=== PATIENT | female | born 1985 | race Caucasian/White ===

== ENCOUNTER → 2022-07-21 14:43 | Outpatient (BNVA) | payer MEDICARE, MEDICAID, SELFPAY | PROVIDERS: PCP Internal Medicine; Referring Provider Internal Medicine; Visit Provider Internal Medicine Cardiovascular Disease | DX: I49.8 Other specified cardiac arrhythmias (principal); Z86.79 Personal history of other diseases of the circulatory system | CPT/HCPCS: 93005; 99202 ==

== ENCOUNTER → 2022-07-22 09:39 | Outpatient (BNVA) | payer MEDICARE, MEDICAID, SELFPAY | PROVIDERS: PCP Internal Medicine; Referring Provider Internal Medicine; Visit Provider Internal Medicine Gastroenterology | DX: K52.9 Noninfective gastroenteritis and colitis, unspecified (principal) | CPT/HCPCS: 99202 ==

== ENCOUNTER → 2022-07-27 13:14 | Outpatient (BNVA) | payer MEDICARE, MEDICAID, SELFPAY | PROVIDERS: PCP Internal Medicine; Visit Provider Internal Medicine Pulmonary Disease | DX: J45.909 Unspecified asthma, uncomplicated (principal) | CPT/HCPCS: 99202 ==

== ENCOUNTER 2022-08-02 14:53 | Outpatient (REF) | payer MEDICARE, MEDICAID, SELFPAY ==
[2022-08-10 18:17] LABS: Lactoferrin, Fecal, Quant. <6.25 mcg/mL (<7.25)
== END 2022-08-02 14:54 | disposition home or self-care (01) ==
LOC: HO.LNP 14:53
PROVIDERS: Visit Provider Internal Medicine Gastroenterology
DX: K52.9 Noninfective gastroenteritis and colitis, unspecified (principal)
CPT/HCPCS: 83631

== ENCOUNTER → 2022-08-17 13:55 | Outpatient (REF) | payer MEDICARE, MEDICAID, SELFPAY ==
--- NOTE | 2022-08-17 13:58 | CA_ITS ---
Transthoracic Echocardiogram Patient (Last, First, Middle): Roshni Lorenzo M Gender: Female Date of : 1985 Age: 37 Procedure Date: 08/17/2022 Procedure Type: Transthoracic Echocardiogram Location: OP Height: 162.56 cm Weight: 57.61 kg BSA: 1.61 m2 Heart Rate: 79 bpm BP: 110 / 70 mmHg Remanufacturing Technician: SULLY Referring MD: Kristopher Geronimo MD Symptoms: I49.8 - Other specified cardiac arrhythmias Study Quality: Technically Difficult ECG Rhythm: Sinus Conclusions: - The left ventricular systolic function is normal. The visually estimated ejection fraction is between 60-65%. - No obvious valvular pathology seen on this study. - (technically limited study with off axis images). Findings Left Ventricle Normal left ventricular cavity size. There is normal left ventricular wall thickness. The left ventricular systolic function is normal. The visually estimated ejection fraction is between 60-65%. Regional wall motion abnormalities can not be excluded due to suboptimal endocardial definition. Diastolic function is normal for age. Right Ventricle Normal right ventricular cavity size and systolic function. Atria Both atria are normal in size. Interatrial shunt cannot be excluded. Aortic Valve The aortic valve was not well visualized. There is mild calcification of the aortic valve. There is no aortic valve stenosis. There is no aortic valve regurgitation. Mitral Valve The mitral valve appears normal. There is no mitral valve regurgitation. There is no mitral valve stenosis. Pulmonic Valve The pulmonic valve is likely normal. Tricuspid Valve Normal tricuspid valve structure. There is no tricuspid valve regurgitation. Tricuspid regurgitation envelope is inadequate for calculation of right ventricular systolic pressure. Great Vessels The aorta was not well visualized. Venous The inferior vena cava is normal in size and collapses greater than 50% with inspiration. Pericardium/Pleural There is no evidence of pericardial effusion. Prior Study Comparison No prior study available for comparison. Recommendations, Care & Conclusions No obvious valvular pathology seen on this study. Measurements 2D Linear Measurements IVSd: 0.55 0.6-0.9/0.6-1.0 cm LVIDd: 4.44 3.9-5.3/4.2-5.9 cm LVIDd Index: 2.76 2.4-3.2/2.2-3.1 cm/m2 LVIDs: 3.94 2.0-3.6 cm LVPWd: 0.59 0.7-1.1 cm LA Diam: 2.30 2.7-3.8/3.0-4.0 cm LAIDs Index: 1.43 1.5-2.3 cm/m2 LV Mass: 89.56 67-162/88-224 g LV Mass Index: 55.63 43-95/49-115 g/m2 LVOT Diam: 1.80 3.0+(-)1.3 cm Mitral Valve MV Pk E: 0.78 MV PK A: 0.48 MV Decel Time: 246.00 E/A: 1.60 E'Lateral: 9.79 E'Medial: 9.46 E/E' Med: 8.20 E/E' Lat: 7.90 PHT: 72.00 MVA PHT: 3.06 Decel Bryan: 3.15 Aortic Valve AoV Pk Carmine: 0.93 AoV Mn Carmine: 0.68 AoV VTI: 0.16 AoV Pk Grad: 3.00 Aov Mn Grad: 2.00 JEMAL Cont.VTI: 2.02 LVOT LVOT Pk Carmine: 0.78 LVOT Mn Carmine: 0.53 LVOT VTI: 0.13 LVOT Pk Grad: 2.00 LVOT Mn Grad: 1.00 LVOT Diam: 1.80 LVOT Area: 2.54 Diastolic Function MV Pk E: 0.78 MV Pk A: 0.48 E/A: 1.60 E'Medial: 9.46 E/E' Med: 8.20 E' Laterial: 9.79 E/E' Lat: 7.90 Right Ventricle TAPSE (mm): 18.10 TVS' Carmine: 10.30 Tricuspid Valve RA Press: 3.00 Great Vessels Aorta Sinus of Valsalva: 2.70 2.0-3.5 cm Ao Asc: 2.40 2.1-3.4 cm Pulmonary Valve PV Pk Acrmine: 0.81 Peak PV Grad: 3.00 Updated in Other Vendor System with Status of Final Bob Aly MD electronically signed on 08/19/2022 11:07:00 AM with status of Final
== END ==
LOC: HO.CARD 13:55
PROVIDERS: PCP Internal Medicine; Visit Provider Internal Medicine Cardiovascular Disease
DX: I49.8 Other specified cardiac arrhythmias (principal)
CPT/HCPCS: 93306

== ENCOUNTER → 2022-09-06 15:01 | Outpatient (REF) | payer MEDICARE, MEDICAID, SELFPAY ==
--- NOTE | 2022-09-06 15:04 | HM_ITS ---
Conclusion: 1. Patient was monitored for total period of 2 days and 23 hours 2. Baseline was normal sinus rhythm with average heart of 84 beats per minute 3. No significant pauses or bradycardia noted 4. Very rare PACs noted 5. Patient reported 4 events all of which correlated with sinus rhythm MTDD
== END ==
LOC: HO.CARD 15:01
PROVIDERS: PCP Internal Medicine; Visit Provider Internal Medicine Cardiovascular Disease
DX: I49.8 Other specified cardiac arrhythmias (principal)
CPT/HCPCS: 93242

== ENCOUNTER → 2022-10-11 11:05 | Outpatient (BNVA) | payer MEDICARE, MEDICAID, SELFPAY | PROVIDERS: PCP Internal Medicine; Visit Provider Internal Medicine Pulmonary Disease | DX: J45.909 Unspecified asthma, uncomplicated (principal); F17.210 Nicotine dependence, cigarettes, uncomplicated; Z79.899 Other long term (current) drug therapy | CPT/HCPCS: 99212 ==

== ENCOUNTER → 2023-01-31 12:59 | Outpatient (BNVA) | payer MEDICARE, MEDICAID, SELFPAY | PROVIDERS: PCP Internal Medicine; Visit Provider Internal Medicine Pulmonary Disease | DX: J45.909 Unspecified asthma, uncomplicated (principal) | CPT/HCPCS: 99212 ==

== ENCOUNTER 2023-05-15 13:51 | Outpatient (AMB) | payer OTHER, SELFPAY ==
[2023-05-15 13:55] VITALS: BP 102/52; PULSE 85; O2SAT 98; BMI 20.9
--- NOTE | 2023-05-15 13:55 | MHC.PC.OV ---
Vital Signs 05/15/23 13:55 Height 5 ft 4 in Weight 122 lb BMI 20.9 BP 102/52 L Blood Pressure Location Lt brachial Position Sitting Pulse 85 Pulse Source Pulse Oximeter Pulse Oximetry (%) 98 Oxygen Delivery Method Room Air Intake Visit Reasons: smoker, POTSesophageal stricture Allergies egg Allergy (Severe, Verified 05/15/23 13:55) Hives insect venom Allergy (Severe, Verified 05/15/23 13:55) Rash Iodinated Contrast Media Allergy (Severe, Verified 05/15/23 13:55) Hives melon Allergy (Severe, Verified 05/15/23 13:55) Hives orange Allergy (Severe, Verified 05/15/23 13:55) Hives pear Allergy (Severe, Verified 05/15/23 13:55) Hives immune globulin,alpha (IgA) greater than 50 mcg/mL [From Octagam] Allergy (Intermediate, Verified 05/15/23 13:55) Anaphylaxis immune globulin,gamma (IgG) human [From Octagam] Allergy (Intermediate, Verified 05/15/23 13:55) Anaphylaxis maltose [From Octagam] Allergy (Intermediate, Verified 05/15/23 13:55) Anaphylaxis adhesive tape Allergy (Mild, Verified 05/15/23 13:55) Rash Inhaled Anesthetics (Halogen Based) Allergy (Mild, Verified 05/15/23 13:55) 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 Tobacco use date assessed: 05/15/23 Dental Screening Dental Screen Date: 05/15/23 Did you have a dental visit in the last 12 months?: Yes Did you have a dental problem in the last 6 months where you did not have access to dental care?: No Was dental information given to patient?: Patient has dentist HPI smoker, POTSesophageal stricture HPI Details 38-year-old female smoker with history of asthma and esophageal stricture coming in for follow-up. Blood work was requested. Review of the notes march 21, 2023 had right middle finger laceration (slammed door) healing. Patient also has followed up with the pulmonary placed on Dupixent. on Breo and albuterol. EGD not done yet and knows to reschedule. 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 seeing dermatology [place]. 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 Occipital neuralgia Pelvic floor dysfunction Pericardial effusion Peripheral neuropathy Positive YARITZA antibody POTS (postural orthostatic tachycardia syndrome) Raynauds disease 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 Brother Afib Paternal Grandfather Colon cancer Maternal Aunt Liver cancer Social History Housing: Apartment Alcohol intake: never Patient Tobacco Use Status: Current everyday Tobacco user Tobacco use type: Cigarette Cigarette Packs Per Day: 0.5 Cigarettes Per Day: 5 e-Cigarette/Vaping Use: Never Used Second Hand Smoke Exposure: Yes service: No Current occupational status: disabled Cognitive needs: No Hearing needs: No Vision needs: Yes Questionnaire PHQ-9 Over the last 2 weeks, how often have you been bothered by any of the following problems? 1. Little interest or pleasure in doing things: not at all 2. Feeling down, depressed, or hopeless: not at all 3. Trouble falling or staying asleep, or sleeping too much: not at all 4. Feeling tired or having little energy: not at all 5. Poor appetite or overeating: not at all 6. Feeling bad about yourself - or that you are a failure or have let yourself or your family down: not at all 7. Trouble concentrating on things, such as reading the newspaper or watching television: not at all 8. Moving or speaking so slowly that other people could have noticed. Or the opposite - being so fidgety or restless that you have been moving around a lot more than usual: not at all 9. Thoughts that you would be better off or of hurting yourself in some way: not at all Total score: 0 Depression Screening Interpretation: Negative Source: Developed by Drs. Raad Johnson, Jerry Uriarte and colleagues, with an educational maryse from [employer] Thrive Questionnaire Date Thrive assessed: 11/15/22 AUDIT C Alcohol Use Questionnaire (AUDIT-C) 1. How often do you have a drink containing alcohol?: Never Total Score: 0 Score Reviewed/Action Taken: No YARITZA-7 AMB Questionnaire YARITZA-7 Date YARITZA - 7 assessed: 11/15/22 Source: Developed by Drs. Raad Johnson, Jerry Uriarte and colleagues, with an educational maryse from [employer] Physical exam (Primary Care) Vital Signs: Last Vital Signs Pulse 85 05/15/23 13:55 BP 102/52 L 05/15/23 13:55 Pulse Ox 98 05/15/23 13:55 Oxygen Delivery Method Room Air 05/15/23 13:55 BMI result Body Mass Index 20.9 Tobacco/Smoking Status: Tobacco use Status Tobacco use date assessed 05/15/23 05/15/23 14:01 Patient Tobacco Use Status Current everyday Tobacco 05/15/23 14:01 Tobacco use type Cigarette 05/15/23 14:01 e-Cigarette/Vaping Use Never Used 05/15/23 14:01 PHQ-9: PHQ-9 Score PHQ-9: Total score 0 05/15/23 14:01 Depression Screening Interpretation: Negative Thrive Assessment: Date of Thrive Assessment Date Thrive assessed 11/15/22 05/15/23 14:01 Const General: alert; No acute distress Eyes Conjunctivae: conjunctivae normal Resp Auscultation: clear to auscultation bilaterally Cardio Rate: regular rate Rhythm: regular rhythm GI Inspection: Yes normal to inspection Extrem General: Yes normal to inspection and No edema Assessment and Plan Assessment & Plan (1) Tobacco abuse: Code(s): Z72.0 - Tobacco use Plan: Patient has been strongly advised to stop smoking (2) Asthma: Code(s): J45.909 - Unspecified asthma, uncomplicated Plan: Patient is being followed up by Pulmonary as well as breaker mechanic. 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: Code(s): G25.82 - Stiff-man syndrome; R76.0 - Raised antibody titer (5) Migraine: Code(s): G43.909 - Migraine, unspecified, not intractable, without status migrainosus Orders: Referrals Neurology Referral G43.909 - Migraine, unspecified, not intractable, without status migrainosus Rheumatology Referral L93.0 - Discoid lupus erythematosus Coding Level of Care Code Est Pt Level 4 (38515) Diagnoses Tobacco abuse Z72.0 Asthma J45.909 History of esophageal stricture Z87.19 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
== END 2023-05-15 14:25 | disposition home or self-care (01) ==
LOC: HO.HMGH 13:51
PROVIDERS: PCP Internal Medicine; Visit Provider Internal Medicine
DX: J45.909 Unspecified asthma, uncomplicated (principal); Z87.19 Personal history of other diseases of the digestive system; G43.909 Migraine, unspecified, not intractable, without status migrainosus; Z72.0 Tobacco use; G25.82 Stiff-man syndrome; R76.0 Raised antibody titer
CPT/HCPCS: 99214

== ENCOUNTER 2023-07-20 12:54 | Outpatient (AMB) | payer OTHER, SELFPAY ==
--- NOTE | 2023-07-20 12:56 | MHC.OFFVIS ---
Intake Vital Signs 07/20/23 12:57 Height 5 ft 4 in Weight 123 lb 7.342 oz BMI 21.2 BP 102/62 Blood Pressure Location Lt brachial Position Sitting Pulse 92 Pulse Source Doppler Pulse Oximetry (%) 100 Oxygen Delivery Method Room Air Intake Visit Reasons: Asthma Allergies egg Allergy (Severe, Verified 07/20/23 12:59) Hives insect venom Allergy (Severe, Verified 07/20/23 12:59) Rash Iodinated Contrast Media Allergy (Severe, Verified 07/20/23 12:59) Hives melon Allergy (Severe, Verified 07/20/23 12:59) Hives orange Allergy (Severe, Verified 07/20/23 12:59) Hives pear Allergy (Severe, Verified 07/20/23 12:59) Hives immune globulin,alpha (IgA) greater than 50 mcg/mL [From Octagam] Allergy (Intermediate, Verified 07/20/23 12:59) Anaphylaxis immune globulin,gamma (IgG) human [From Octagam] Allergy (Intermediate, Verified 07/20/23 12:59) Anaphylaxis maltose [From Octagam] Allergy (Intermediate, Verified 07/20/23 12:59) Anaphylaxis adhesive tape Allergy (Mild, Verified 07/20/23 12:59) Rash Inhaled Anesthetics (Halogen Based) Allergy (Mild, Verified 07/20/23 12:59) 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 HPI Asthma HPI Details 37-year-old lady, recent about 15 pack-year smoker, with underlying history of Alexandro-Danlos syndrome, also asthma within allergic component, followed by an community reinvestment act officer and now on antigen injections/Dupixent, now followed for asthma with good baseline control on current regimen of Breo 200 and albuterol MDI. She denies any recent exacerbations. 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 Brother Afib Paternal Grandfather Colon cancer Maternal Aunt Liver cancer Social History Housing: Apartment Alcohol intake: never Patient Tobacco Use Status: Current everyday Tobacco user Tobacco use type: Cigarette Cigarette Packs Per Day: 0.5 Cigarettes Per Day: 5 e-Cigarette/Vaping Use: Never Used Second Hand Smoke Exposure: Yes service: No Current occupational status: disabled Cognitive needs: No Hearing needs: No Vision needs: Yes Review of Systems Const Denies daytime sleepiness, Denies excessive sweating, Denies fatigue, Denies fever(s), Denies lethargy, Denies malaise, Denies night sweats, Denies snoring and Denies weight loss Eyes Denies blurry vision and Denies itchy eyes ENT Denies nasal congestion, Denies post nasal drip, Denies sinus pain, Denies sinus pressure and Denies other ( Thrush) Card Denies chest pain, Denies pedal edema, Denies dyspnea, Denies orthopnea and Denies paroxysmal nocturnal dyspnea Resp Denies cough, Denies hemoptysis, Denies excessive phlegm production, Denies dyspnea, Denies snoring and Denies wheezing GI Denies abdominal pain and Denies heartburn Musc Denies myalgias, Denies arthralgias and Denies joint swelling Skin/Breast Denies rash Neuro Denies memory loss and Denies seizure-like activity Psych Denies abnormal sleep pattern, Denies anxiety and Denies memory loss Endo Denies excessive sweating, Denies fatigue and Denies heat intolerance Zachery/Lymph Denies easy bruising Aller/Immun Denies itchy eyes, Denies seasonal rhinorrhea and Denies wheezing Physical Exam Vital Signs: Last Vital Signs Pulse 92 07/20/23 12:57 BP 102/62 07/20/23 12:57 Pulse Ox 100 07/20/23 12:57 Oxygen Delivery Method Room Air 07/20/23 12:57 BMI result Body Mass Index 21.2 Const General: no acute distress and alert Nutritional Appearance: not obese Orientation/consciousness: Other orientation findings ( oriented) HEENT Head: Yes atraumatic Eyes General: appearance normal, both eyes and all related structures Sclerae: sclerae normal EOM: EOMs intact bilaterally Neck Neck: Yes supple Lymphatic: no lymphadenopathy noted Resp Effort & Inspection: normal respiratory effort and no use of accessory muscles Auscultation: clear to auscultation bilaterally Cardio Rate: regular rate Rhythm: regular rhythm Heart sounds: no gallops, no murmurs and no rubs Skin General skin exam: other ( warm) Extrem General: No clubbing, No cyanosis and No edema Assessment & Plan Assessment & Plan (1) Asthma: Code(s): J45.909 - Unspecified asthma, uncomplicated Plan: Well controlled on current regimen of Breo and albuterol MDI. Continue current regimen. Patient continues on Dupixent/Singulair from her community reinvestment act officer. Coding Level of Care Code Est Pt Level 3 (51752) Diagnoses Asthma J45.909
[2023-07-20 12:57] VITALS: BP 102/62; PULSE 92; O2SAT 100; BMI 21.2
== END 2023-07-20 13:09 | disposition home or self-care (01) ==
PROVIDERS: PCP Internal Medicine; Visit Provider Internal Medicine Pulmonary Disease
DX: J45.909 Unspecified asthma, uncomplicated (principal)
CPT/HCPCS: 99213

== ENCOUNTER → 2023-07-20 12:54 | Outpatient (BNVA) | payer OTHER, SELFPAY | PROVIDERS: PCP Internal Medicine; Visit Provider Internal Medicine Pulmonary Disease | DX: J45.909 Unspecified asthma, uncomplicated (principal); Z79.899 Other long term (current) drug therapy | CPT/HCPCS: 99212 ==

== ENCOUNTER 2023-08-03 13:34 | Outpatient (AMB) | payer OTHER, SELFPAY ==
[2023-08-03 13:35] VITALS: BP 110/67; PULSE 76; BMI 20.8
--- NOTE | 2023-08-03 13:35 | MHC.OFFVIS ---
Intake Vital Signs 08/03/23 13:35 08/03/23 13:47 08/03/23 13:47 Height 5 ft 4 in Weight 121 lb 4.068 oz BMI 20.8 BP 110/67 110/76 119/83 Blood Pressure Location Lt brachial Lt brachial Lt brachial Position Supine Sitting Standing Pulse 76 87 92 Intake Visit Reasons: 1 year follow up Intake Note: 1 year follow-up with ekg feeling good American Sign Language Teacher Required: No Allergies egg Allergy (Severe, Verified 07/20/23 12:59) Hives insect venom Allergy (Severe, Verified 07/20/23 12:59) Rash Iodinated Contrast Media Allergy (Severe, Verified 07/20/23 12:59) Hives melon Allergy (Severe, Verified 07/20/23 12:59) Hives orange Allergy (Severe, Verified 07/20/23 12:59) Hives pear Allergy (Severe, Verified 07/20/23 12:59) Hives immune globulin,alpha (IgA) greater than 50 mcg/mL [From Octagam] Allergy (Intermediate, Verified 07/20/23 12:59) Anaphylaxis immune globulin,gamma (IgG) human [From Octagam] Allergy (Intermediate, Verified 07/20/23 12:59) Anaphylaxis maltose [From Octagam] Allergy (Intermediate, Verified 07/20/23 12:59) Anaphylaxis adhesive tape Allergy (Mild, Verified 07/20/23 12:59) Rash Inhaled Anesthetics (Halogen Based) Allergy (Mild, Verified 07/20/23 12:59) 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 Medication List - Last Reconciled 08/03/23 by Kristopher Geronimo MD albuterol sulfate 5 mg inhalation Q4H PRN albuterol sulfate 90 mcg/actuation (ProAir HFA) 2 puffs inhalation Q4-6H PRN azelastine 2 sprays intranasal BID 90 days baclofen 10 mg PO TID cholecalciferol (vitamin D3) 50 mcg PO DAILY cromolyn 100 mg PO QID dextroamphetamine-amphetamine 10 mg 1 tab PO DAILY dextroamphetamine-amphetamine 25 mg ER 1 cap PO QAM diphenhydramine HCl (Benadryl) 50 mg (2 x 25 mg) PO ONCE dupilumab (Dupixent) mg subcut epinephrine 0.3 mg IM Q10M PRN erenumab-aooe (Aimovig Autoinjector) mg subcut famotidine 20 mg PO BID fexofenadine 180 mg PO QID PRN fludrocortisone 0.1 mg PO DAILY 90 days fluocinonide 0.05% 1 appl topical BID fluticasone furoate-vilanterol 200-25 mcg/dose (Breo Ellipta) 1 ea PO DAILY gabapentin 300 mg PO TID 90 days immune globul G-gly-IgA avg 46 20 gram/200 mL (10 %) (Gamunex-C) NEUROLOGY Dr. Jones immune globul G-gly-IgA avg 46 5 gram/50 mL (10 %) (Gamunex-C) mL subcut metoprolol succinate ER Take 2 tablets of 25 mg in the morning and 1 tablet in the evening orally daily; 90 days montelukast 10 mg PO BEDTIME 90 days onabotulinumtoxinA (Botox) 2,000 units intradetrusor 4XW ondansetron 4 mg PO Q8H 90 days Oxygen Home Use As directed pentoxifylline ER 400 mg PO TID sodium chloride 0.65% (Saline Nasal Mist) 2 sprays intranasal QID PRN sumatriptan succinate 50 mg PO Q2-4H PRN triamcinolone acetonide 0.1% 1 appl topical BID HPI HPI Comments History of Present Illness Details Roshni comes for follow-up. She says she is feeling the best she has in many years. She has very infrequent palpitations and or near syncopal or syncopal events. She says she notices a blood pressure usually low around the time of IVIG infusion. Otherwise blood pressure is well controlled. She pushes fluids as well as salt intake. She also exercises regularly and has no cardiac symptoms. 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 Brother Afib Paternal Grandfather Colon cancer Maternal Aunt Liver cancer Social History Housing: Apartment Alcohol intake: never Patient Tobacco Use Status: Current everyday Tobacco user Tobacco use type: Cigarette Cigarette Packs Per Day: 0.5 Cigarettes Per Day: 5 e-Cigarette/Vaping Use: Never Used Second Hand Smoke Exposure: Yes service: No Current occupational status: disabled Cognitive needs: No Hearing needs: No Vision needs: Yes Review of Systems Const Denies chills, Denies fatigue, Denies fever(s), Denies frequent falls, Denies weakness, Denies weight gain and Denies weight loss ENT Denies dizziness Card Denies chest pain, Denies leg edema, Denies lightheadedness, Denies palpitations, Denies dyspnea, Denies dyspnea on exertion, Denies orthopnea and Denies other (loss of consciousness) Resp Denies cough, Denies dyspnea and Denies dyspnea on exertion GI Denies hematochezia and Denies change in stool character Musc Denies abnormal gait, Denies muscle weakness, Denies numbness, Denies radiating pain into limb and Denies tingling Neuro Denies Abnormal speech present, Denies abnormal gait, Denies dizziness, Denies frequent falls, Denies numbness, Denies tingling and Denies weakness Endo Denies fatigue and Denies palpitations Physical Exam Vital Signs: Last Vital Signs Pulse 92 08/03/23 13:47 BP 119/83 08/03/23 13:47 BMI result Body Mass Index 20.8 Const General: cooperative, comfortable, no acute distress, alert, awake and Physically active Nutritional Appearance: thin Orientation/consciousness: patient oriented x3 Limitations: no limitations HEENT Head: Yes normocephalic and Yes atraumatic Neck Neck: Yes trachea midline, Yes supple and Yes no JVD Resp Effort & Inspection: normal respiratory effort Auscultation: clear to auscultation bilaterally Cardio Jugular venous distension: no JVD Palpation: normal PMI Rate: regular rate Rhythm: regular rhythm Heart sounds: S1 normal heart sound present, S2 normal heart sound present, no click, no gallops, no murmurs and no rubs GI Auscultation: normal bowel sounds Skin General skin exam: no rashes or lesions noted Neuro General: patient oriented x3 and no focal motor deficits Speech: No Abnormal speech present Extrem General: Yes no clubbing, cyanosis or edema Office Procedures EKG Details: EKG shows normal sinus rhythm normal EKG at 77 beats per minute [id number], Complete Assessment & Plan Assessment & Plan (1) POTS (postural orthostatic tachycardia syndrome): Code(s): I49.8 - Other specified cardiac arrhythmias Plan: Patient with dysautonomia with POTS syndrome. Has done extremely well with increase fluid and salt intake as well as current fludrocortisone therapy. She notices low blood pressure consistently with IVIG infusion. I said she can take 0.2 mg of fludrocortisone during that times. Advised to continue maintain adequate fluid and salt intake. Continue maintain exercise as tolerated. Management of orthostatic hypertension was discussed in details. She understands it well. Follow up in clinic in 2 years time, sooner p.r.n.. Thank you for allowing me to partake in her care Coding Level of Care Code Est Pt Level 3 (33502) Diagnoses POTS (postural orthostatic tachycardia syndrome) I49.8 CPT Codes EKG - CPT: 34419-[id number], Complete ([id number])
[2023-08-03 13:47] VITALS: BP 110/76; BP 119/83; PULSE 87; PULSE 92
== END 2023-08-03 14:11 | disposition home or self-care (01) ==
PROVIDERS: PCP Internal Medicine; Visit Provider Internal Medicine Cardiovascular Disease
DX: I49.8 Other specified cardiac arrhythmias (principal)
CPT/HCPCS: 93010; 99213

== ENCOUNTER → 2023-08-03 13:34 | Outpatient (BNVA) | payer OTHER, SELFPAY | PROVIDERS: PCP Internal Medicine; Visit Provider Internal Medicine Cardiovascular Disease | DX: G90.A Postural orthostatic tachycardia syndrome [POTS] (principal); G90.1 Familial dysautonomia [Riley-Day] | CPT/HCPCS: 93005; 99212 ==

== ENCOUNTER 2023-08-16 13:06 | Outpatient (AMB) | payer OTHER, SELFPAY ==
[2023-08-16 13:13] VITALS: BP 112/64; PULSE 92; TEMP 36.6; BMI 20.7
--- NOTE | 2023-08-16 13:13 | MHC.OFFVIS ---
Intake Vital Signs 08/16/23 13:13 Height 5 ft 4 in Weight 120 lb 13.013 oz BMI 20.7 BP 112/64 Blood Pressure Location Rt brachial Position Sitting Pulse 92 Pulse Source Palpation Temp 97.9 F Temp Source Skin Intake Visit Reasons: Discoid lupus erythematosus Intake Note: New pt presents today for consult. Referred by PCP Dr Grover. Follows with Tamara guerrero. States she has a lot of autoimmune stuff going on. 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 Accompanied by: Self / Same As Patient Allergies egg Allergy (Severe, Verified 08/16/23 13:15) Hives insect venom Allergy (Severe, Verified 08/16/23 13:15) Rash Iodinated Contrast Media Allergy (Severe, Verified 08/16/23 13:15) Hives melon Allergy (Severe, Verified 08/16/23 13:15) Hives orange Allergy (Severe, Verified 08/16/23 13:15) Hives pear Allergy (Severe, Verified 08/16/23 13:15) Hives immune globulin,alpha (IgA) greater than 50 mcg/mL [From Octagam] Allergy (Intermediate, Verified 08/16/23 13:15) Anaphylaxis immune globulin,gamma (IgG) human [From Octagam] Allergy (Intermediate, Verified 08/16/23 13:15) Anaphylaxis maltose [From Octagam] Allergy (Intermediate, Verified 08/16/23 13:15) Anaphylaxis adhesive tape Allergy (Mild, Verified 08/16/23 13:15) Rash Inhaled Anesthetics (Halogen Based) Allergy (Mild, Verified 08/16/23 13:15) 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 Medication List - Last Reconciled 08/16/23 by Lisbeth Brar MD albuterol sulfate 5 mg inhalation Q4H PRN albuterol sulfate 90 mcg/actuation (ProAir HFA) 2 puffs inhalation Q4-6H PRN azelastine 2 sprays intranasal BID 90 days baclofen 10 mg PO TID cholecalciferol (vitamin D3) 50 mcg PO DAILY cromolyn 100 mg PO QID dextroamphetamine-amphetamine 10 mg 1 tab PO DAILY dextroamphetamine-amphetamine 20 mg 20 mg PO QAM diphenhydramine HCl (Benadryl) 50 mg (2 x 25 mg) PO ONCE dupilumab (Dupixent) mg subcut epinephrine 0.3 mg IM Q10M PRN erenumab-aooe (Aimovig Autoinjector) mg subcut famotidine 20 mg PO BID fexofenadine 180 mg PO QID PRN fludrocortisone 0.1 mg PO DAILY 90 days fluocinonide 0.05% 1 appl topical BID fluticasone furoate-vilanterol 200-25 mcg/dose (Breo Ellipta) 1 ea PO DAILY gabapentin 300 mg PO TID 90 days immune globul G-gly-IgA avg 46 20 gram/200 mL (10 %) (Gamunex-C) NEUROLOGY Dr. Jones immune globul G-gly-IgA avg 46 5 gram/50 mL (10 %) (Gamunex-C) mL subcut meloxicam 15 mg PO DAILY metoprolol succinate ER Take 2 tablets of 25 mg in the morning and 1 tablet in the evening orally daily; 90 days montelukast 10 mg PO BEDTIME 90 days onabotulinumtoxinA (Botox) 2,000 units intradetrusor 4XW ondansetron 4 mg PO Q8H 90 days Oxygen Home Use As directed pentoxifylline ER 400 mg PO TID sodium chloride 0.65% (Saline Nasal Mist) 2 sprays intranasal QID PRN sumatriptan succinate 50 mg PO Q2-4H PRN triamcinolone acetonide 0.1% 1 appl topical BID HPI HPI Comments History of Present Illness Details This is a 38-year-old female with pretty complex past medical history including 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 Back in April patient started developing rashes on her legs, back, hands, the rashes were itchy. She was evaluated by Allergy/immunology as well as Dermatology. She was started on allergy shots which were not very helpful, then started on the PICC sent which was quite helpful. She states that the rash is seems to have completely resolved. She stated that she has had history of Raynaud's for many years. Denies ever having digital tip ulcers. Mentions that her paternal aunt has sarcoidosis. 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 Brother Afib Paternal Grandfather Colon cancer Maternal Aunt Liver cancer Paternal Aunt Sarcoidosis Other Family history of autoimmune disorder Social History Housing: Apartment Alcohol intake: never Patient Tobacco Use Status: Current everyday Tobacco user Tobacco use type: Cigarette Cigarette Packs Per Day: 0.5 Cigarettes Per Day: 5 e-Cigarette/Vaping Use: Never Used Second Hand Smoke Exposure: Yes service: No Current occupational status: disabled Cognitive needs: No Hearing needs: No Vision needs: Yes Female Reproductive History Menstrual Total pregnancies: 0 Review of Systems Const Reports fatigue, Reports headache(s) and Reports weakness Eyes Reports dry eyes and Reports itchy eyes ENT Reports dysphagia, Reports dizziness, Reports dry mouth and Reports headache(s) GI Reports constipation, Reports dysphagia, Reports diarrhea and Reports nausea Musc Reports arthralgias and Reports stiffness Skin/Breast Reports erythema, Reports rash and Reports unusual bruising Neuro Reports dizziness, Reports headache(s) and Reports weakness Endo Reports fatigue Aller/Immun Reports itchy eyes Physical Exam Vital Signs: Last Vital Signs Temp 97.9 F 08/16/23 13:13 Pulse 92 08/16/23 13:13 BP 112/64 08/16/23 13:13 BMI result Body Mass Index 20.7 Const General: cooperative, healthy appearing and comfortable Nutritional Appearance: average body habitus Orientation/consciousness: patient oriented x3 Limitations: no limitations HEENT Head: Yes normocephalic and Yes atraumatic Mouth: moist mucous membranes Resp Effort & Inspection: normal respiratory effort and able to speak in complete sentences Auscultation: clear to auscultation bilaterally Cardio Rate: regular rate Rhythm: regular rhythm Heart sounds: S1 normal heart sound present GI Inspection: No distended Palpation (GI): Soft to palpation and nontender Skin Other: Livedo reticularis on both forearms Neuro General: patient oriented x3 Extrem Other: No active synovitis Normal nailfold capillaroscopy normal range of motion of both hands, wrists, elbows, shoulders, knees without pain Results Reviewed Results Reviewed: abs 04/2023 SSA 2.0 (<1.0) SSB -ve DOC screen by IFA negative? DNA/Arzola/AVIONICS SYSTEMS TECHNICIAN negative Labs 02/2023? CRP normal PFT 05/2022? Impression:? Normal spirometry, mildly reduced DLCO at 60% predicted Assessment & Plan Assessment & Plan (1) SS-A antibody positive: Code(s): R76.8 - Other specified abnormal immunological findings in serum Plan: This is a 38-year-old female with complex past medical history who presents for evaluation of mildly positive SSA, this was checked in the context of multiple itchy rashes. Rashes improved with Dupixent. I do not see any signs of connective tissue diseases such as SLE/Sjogren's/MCTD upon my evaluation today. Significance of her positive anti SSA is unclear. Discussed with patient signs and symptoms that should prompt her to come back to Rheumatology for re-evaluation. Follow-up as needed (2) Raynauds disease: Code(s): I73.00 - Raynaud's syndrome without gangrene Qualifiers: Raynaud?s-associated gangrene presence: without gangrene Qualified Code(s): I73.00 - Raynaud's syndrome without gangrene Plan: Per patient had symptoms for many years. Symptoms controlled with conservative measures. No history of digital tip ulcers. Patient has a negative DOC by IFA with normal nailfold capillaroscopy. Discussed conservative measures for Raynaud's. Plan I spent 46 minutes reviewing patient's chart, evaluating patient, counseling patient and documenting in the chart Coding Level of Care Code New Pt Level 4 (50178) Diagnoses SS-A antibody positive R76.8 Raynaud's disease without gangrene I73.00 Raynaud?s-associated gangrene presence: without gangrene
== END 2023-08-16 13:41 | disposition home or self-care (01) ==
PROVIDERS: PCP Internal Medicine; Visit Provider Student in an Organized Health Care Education/Training Program
DX: R76.8 Other specified abnormal immunological findings in serum (principal); I73.00 Raynaud's syndrome without gangrene
CPT/HCPCS: 99204

== ENCOUNTER → 2023-08-16 13:06 | Outpatient (BNVA) | payer MEDICARE, MEDICAID, SELFPAY | PROVIDERS: PCP Internal Medicine; Visit Provider Student in an Organized Health Care Education/Training Program ==

== ENCOUNTER 2024-02-23 08:53 | Outpatient (AMB) | payer OTHER, SELFPAY ==
--- NOTE | 2024-02-23 08:54 | A.OFFVIS_ITS ---
Intake Visit Reasons: f/u per Hai Intake Note: Roshni presents as a video call today. CC: No specific concerns at this time. Allergies egg Allergy (Severe, Verified 02/23/24 08:54) Hives insect venom Allergy (Severe, Verified 02/23/24 08:54) Rash Iodinated Contrast Media Allergy (Severe, Verified 02/23/24 08:54) Hives melon Allergy (Severe, Verified 02/23/24 08:54) Hives orange Allergy (Severe, Verified 02/23/24 08:54) Hives pear Allergy (Severe, Verified 02/23/24 08:54) Hives immune globulin,alpha (IgA) greater than 50 mcg/mL [From Octagam] Allergy (Intermediate, Verified 02/23/24 08:54) Anaphylaxis immune globulin,gamma (IgG) human [From Octagam] Allergy (Intermediate, Verified 02/23/24 08:54) Anaphylaxis maltose [From Octagam] Allergy (Intermediate, Verified 02/23/24 08:54) Anaphylaxis adhesive tape Allergy (Mild, Verified 02/23/24 08:54) Rash Inhaled Anesthetics (Halogen Based) Allergy (Mild, Verified 02/23/24 08:54) 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 HPI HPI f/u per Hai: Details: 37 yr old patient being seen for assessment for crohns RECAP: SHe wants to establish care for her IBD she was dx with crohns 2017 in [place] she was having rectal bleeding and mucous in stools she was put on IVIG for stiff person syndrome and felt it helped her crohns she had gastric emptying study 2016 in [place] and it was normal per her report she has post prandial pain after eating the pain is epigastric and feels like sharp pain, an morph to more dull pain constant bloating and discomfort she has constant nausea she has alternating diarrhea and constipation she had rifaximin on and off and it seems to help for a week or so she does have dysphagia she has had dilation in past which has helped she chokes few times a week, usually solids unaware if she has dx of EoE she has tried probiotics, culturelle etc but didn't feel that they helped she has been on steroids on and off for various reasons and it seems to help sleep is v variable she takes ibuprofen peridocially and with IVIG on trental for raynauds INTERIM: She has been focusing on managing her allergy shots and getting her dental issues sorted, redoing all her teeth she feesl her GI issues are not that active or bad stiff man syndrome has been good with IVIG q 4 weeks she had one minor episode of rectal bleeding and occ prandial pain she has on and off issues with swallowing still smoking but almost ready to stop, been weaning down EXAM: GENERAL: The patient is well developed and nontoxic. Relaxed, talking A/P: 1/ Multiple rare conditions, may have crohns contributing to the mix, she wants to wait on further w/u due to dental issues 2/ Esophgeal stricture hx with prior dilation ? dysmotility, ? 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 Brother Afib Paternal Grandfather Colon cancer Maternal Aunt Liver cancer Paternal Aunt Sarcoidosis Other Family history of autoimmune disorder Social History Housing: Apartment Alcohol intake: never Patient Tobacco Use Status: Current everyday Tobacco user Tobacco use type: Cigarette Cigarette Packs Per Day: 0.5 Cigarettes Per Day: 5 e-Cigarette/Vaping Use: Never Used Second Hand Smoke Exposure: Yes service: No Current occupational status: disabled Cognitive needs: No Hearing needs: No Vision needs: Yes Telehealth Telehealth Location of provider rendering services: practice address Location of patient: address on file Patient Identification confirmed using: Name, : Yes Telehealth method: video Patient verbally consented to treatment: Yes Patient verbally consented to billing insurance company: Yes Patient informed of any privacy concerns related to visit: Yes Minutes spent on Phone/Video with Pt.: 8 Assessment & Plan Assessment & Plan (1) IBD (inflammatory bowel disease): Code(s): K52.9 - Noninfective gastroenteritis and colitis, unspecified Category: Medical Plan: EXAM: GENERAL: The patient is well developed and nontoxic. Relaxed, talking A/P: 1/ Multiple rare conditions, may have crohns contributing to the mix, she wants to wait on further w/u due to dental issues 2/ Esophgeal stricture hx with prior dilation ? dysmotility, ? Eoe, vs gerd -- Plan: 1/ repeat EGD with bx for mast cells, EoE and dilation when she feels ready 2/ MR e--with pre med due to contrast allergy again when and if she feels ready 3/ possible colonoscopy at future date 5/ encouraged on efforts for smoking cessation, will help any possible crohns and general health
== END 2024-02-23 10:44 | disposition home or self-care (01) ==
LOC: HO.HGI 08:53
PROVIDERS: PCP Internal Medicine; Visit Provider Internal Medicine Gastroenterology
DX: K52.9 Noninfective gastroenteritis and colitis, unspecified (principal)
CPT/HCPCS: 99213

== ENCOUNTER → 2024-02-23 08:53 | Outpatient (BNVA) | payer OTHER, SELFPAY | PROVIDERS: PCP Internal Medicine; Visit Provider Internal Medicine Gastroenterology ==

== ENCOUNTER 2024-03-06 15:18 | Outpatient (AMB) | payer OTHER, SELFPAY ==
[2024-03-06 15:20] VITALS: BP 102/60; PULSE 76; O2SAT 100; BMI 19.6
--- NOTE | 2024-03-06 15:20 | A.OFFVIS_ITS ---
Vital Signs 03/06/24 15:20 Height 5 ft 4 in Weight 114 lb BMI 19.6 BP 102/60 Blood Pressure Location Rt brachial Position Sitting Pulse 76 Pulse Source Doppler Pulse Oximetry (%) 100 Oxygen Delivery Method Room Air Intake Visit Reasons: asthma Allergies egg Allergy (Severe, Verified 03/06/24 15:25) Hives insect venom Allergy (Severe, Verified 03/06/24 15:25) Rash Iodinated Contrast Media Allergy (Severe, Verified 03/06/24 15:25) Hives melon Allergy (Severe, Verified 03/06/24 15:25) Hives orange Allergy (Severe, Verified 03/06/24 15:25) Hives pear Allergy (Severe, Verified 03/06/24 15:25) Hives immune globulin,alpha (IgA) greater than 50 mcg/mL [From Octagam] Allergy (Intermediate, Verified 03/06/24 15:25) Anaphylaxis immune globulin,gamma (IgG) human [From Octagam] Allergy (Intermediate, Verified 03/06/24 15:25) Anaphylaxis maltose [From Octagam] Allergy (Intermediate, Verified 03/06/24 15:25) Anaphylaxis adhesive tape Allergy (Mild, Verified 03/06/24 15:25) Rash Inhaled Anesthetics (Halogen Based) Allergy (Mild, Verified 03/06/24 15:25) 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 HPI HPI asthma: Details: 39-year-old lady, recent about 15 pack-year smoker, with underlying history of Alexandro-Danlos syndrome, also asthma within allergic component, 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 She denies any recent exacerbations. 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 Brother Afib Paternal Grandfather Colon cancer Maternal Aunt Liver cancer Paternal Aunt Sarcoidosis Other Family history of autoimmune disorder Social History (Updated 03/06/24 @ 15:26 by Bere Munoz [facility]) Housing: Apartment Alcohol intake: never Patient Tobacco Use Status: Current everyday Tobacco user Tobacco use type: Cigarette Cigarette Packs Per Day: 0.5 Cigarettes Per Day: 2 e-Cigarette/Vaping Use: Never Used Second Hand Smoke Exposure: Yes service: No Current occupational status: disabled Cognitive needs: No Hearing needs: No Vision needs: Yes Review of Systems Const Denies daytime sleepiness, Denies excessive sweating, Denies fatigue, Denies fever(s), Denies lethargy, Denies malaise, Denies night sweats, Denies snoring and Denies weight loss Eyes Denies blurry vision and Denies itchy eyes ENT Denies nasal congestion, Denies post nasal drip, Denies sinus pain, Denies sinus pressure and Denies other ( Thrush) Card Denies chest pain, Denies pedal edema, Denies dyspnea, Denies orthopnea and Denies paroxysmal nocturnal dyspnea Resp Denies cough, Denies hemoptysis, Denies excessive phlegm production, Denies dyspnea, Denies snoring and Denies wheezing GI Denies abdominal pain and Denies heartburn Musc Denies myalgias, Denies arthralgias and Denies joint swelling Skin/Breast Denies rash Neuro Denies memory loss and Denies seizure-like activity Psych Denies abnormal sleep pattern, Denies anxiety and Denies memory loss Endo Denies excessive sweating, Denies fatigue and Denies heat intolerance Zachery/Lymph Denies easy bruising Aller/Immun Denies itchy eyes, Denies seasonal rhinorrhea and Denies wheezing Physical Exam Vital Signs: Last Vital Signs Pulse 76 03/06/24 15:20 BP 102/60 03/06/24 15:20 Pulse Ox 100 03/06/24 15:20 Oxygen Delivery Method Room Air 03/06/24 15:20 BMI result Body Mass Index 19.6 Const General: no acute distress and alert Nutritional Appearance: not obese Orientation/consciousness: Other orientation findings ( oriented) HEENT Head: Yes atraumatic Eyes General: appearance normal, both eyes and all related structures Sclerae: sclerae normal EOM: EOMs intact bilaterally Neck Neck: Yes supple Lymphatic: no lymphadenopathy noted Resp Effort & Inspection: normal respiratory effort and no use of accessory muscles Auscultation: clear to auscultation bilaterally Cardio Rate: regular rate Rhythm: regular rhythm Heart sounds: no gallops, no murmurs and no rubs Skin General skin exam: other ( warm) Extrem General: No clubbing, No cyanosis and No edema Assessment & Plan Assessment & Plan (1) Asthma: Code(s): J45.909 - Unspecified asthma, uncomplicated Category: Medical Plan: Well controlled on current regimen of Breo and albuterol MDI/nebs. Continue current regimen. (2) Nocturnal hypoxemia: Code(s): G47.34 - Idiopathic sleep related nonobstructive alveolar hypoventilation Category: Medical Plan: Patient insurance change to [facility], though she needs new supplemental oxygen provider. Overnight oxygen order placed with [employer]. Coding Level of Care Code Est Pt Level 4 (25210) Diagnoses Asthma J45.909 Nocturnal hypoxemia G47.34
== END 2024-03-06 15:34 | disposition home or self-care (01) ==
PROVIDERS: PCP Internal Medicine; Visit Provider Internal Medicine Pulmonary Disease
DX: J45.909 Unspecified asthma, uncomplicated (principal); G47.34 Idiopathic sleep related nonobstructive alveolar hypoventilation
CPT/HCPCS: 99214

== ENCOUNTER → 2024-03-06 15:18 | Outpatient (BNVA) | payer OTHER, SELFPAY | PROVIDERS: PCP Internal Medicine; Visit Provider Internal Medicine Pulmonary Disease | DX: J45.909 Unspecified asthma, uncomplicated (principal); G47.34 Idiopathic sleep related nonobstructive alveolar hypoventilation | CPT/HCPCS: 99212 ==

== ENCOUNTER 2024-06-28 10:15 | Outpatient (AMB) | payer OTHER, SELFPAY ==
[2024-06-28 10:20] VITALS: BP 110/78; PULSE 87; O2SAT 99; BMI 19.0
--- NOTE | 2024-06-28 10:20 | A.OFFPC_ITS ---
Vital Signs 06/28/24 10:20 Height 5 ft 4 in Weight 110 lb 8 oz BMI 19.0 BP 110/78 Blood Pressure Location Lt brachial Position Sitting Pulse 87 Pulse Source Pulse Oximeter Pulse Oximetry (%) 99 Oxygen Delivery Method Room Air Intake Visit Reasons: Physical Exam Physical Therapist Required: No Accompanied by: Self / Same As Patient Allergies egg Allergy (Severe, Verified 06/28/24 10:20) Hives insect venom Allergy (Severe, Verified 06/28/24 10:20) Rash Iodinated Contrast Media Allergy (Severe, Verified 06/28/24 10:20) Hives melon Allergy (Severe, Verified 06/28/24 10:20) Hives orange Allergy (Severe, Verified 06/28/24 10:20) Hives pear Allergy (Severe, Verified 06/28/24 10:20) Hives immune globulin,alpha (IgA) greater than 50 mcg/mL [From Octagam] Allergy (Intermediate, Verified 06/28/24 10:20) Anaphylaxis immune globulin,gamma (IgG) human [From Octagam] Allergy (Intermediate, Verified 06/28/24 10:20) Anaphylaxis maltose [From Octagam] Allergy (Intermediate, Verified 06/28/24 10:20) Anaphylaxis adhesive tape Allergy (Mild, Verified 06/28/24 10:20) Rash Inhaled Anesthetics (Halogen Based) Allergy (Mild, Verified 06/28/24 10:20) 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 Medication List - Last Reconciled 06/28/24 by Wesley Grover MD albuterol sulfate 5 mg inhalation Q4H PRN albuterol sulfate 90 mcg/actuation 2 puffs inhalation Q4-6H PRN azelastine 2 sprays intranasal BID 90 days baclofen 10 mg PO TID cholecalciferol (vitamin D3) 50 mcg PO DAILY cromolyn 100 mg PO QID dextroamphetamine-amphetamine 10 mg 1 tab PO DAILY dextroamphetamine-amphetamine 25 mg ER 1 cap PO QAM diphenhydramine HCl (Benadryl) 50 mg (2 x 25 mg) PO ONCE dupilumab (Dupixent) mg subcut epinephrine 0.3 mg IM Q10M PRN famotidine 20 mg PO BID fexofenadine 180 mg PO QID PRN fludrocortisone 0.1 mg PO DAILY 90 days fluocinonide 0.05% 1 appl topical BID fluticasone furoate-vilanterol 200-25 mcg/dose (Breo Ellipta) 1 ea PO DAILY gabapentin 300 mg PO TID 90 days immune globul G-gly-IgA avg 46 20 gram/200 mL (10 %) (Gamunex-C) NEUROLOGY Dr. Jones metoprolol succinate ER Take 2 tablets of 25 mg in the morning and 1 tablet in the evening orally daily; 90 days montelukast 10 mg PO BEDTIME 90 days ondansetron 4 mg PO Q8H 90 days Oxygen Home Use As directed pentoxifylline ER 400 mg PO TID sodium chloride 0.65% (Saline Nasal Mist) 2 sprays intranasal QID PRN sumatriptan succinate 50 mg PO Q2-4H PRN triamcinolone acetonide 0.5% topical DAILY Tobacco use date assessed: 06/28/24 Dental Screening Dental Screen Date: 06/28/24 Did you have a dental visit in the last 12 months?: Yes Did you have a dental problem in the last 6 months where you did not have access to dental care?: No Was dental information given to patient?: Patient has dentist HPI Physical Exam HPI Details 39-year-old female smoker with a history of asthma, history of esophageal stricture pots stiff person syndrome IBD migraine coming in for physical exam last seen in May 2023. Patient follows up with Pulmonary for the asthma on supplemental oxygen for the nocturnal hypoxemia. Patient has seen gastroenterology also advised repeat EGD biopsy . Patient has also seen Rheumatology in August last year does not see any signs of connective tissue disease Raynaud's. Cardiology notes appreciated also 07/26/2023 advised to increase oral fluids as well as on fludcortisonetherapy advise adequate fluid intake.. Patient has also seen Neurology for headaches which were treated before with Botox. has been hula hooping and so loosing weight but eating good. occ dizzy, R ear pressure, and having vertigo. 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 Brother Afib Paternal Grandfather Colon cancer Maternal Aunt Liver cancer Paternal Aunt Sarcoidosis Other Family history of autoimmune disorder Social History (Updated 06/28/24 @ 10:43 by Wesley Grover MD) Housing: Apartment Alcohol intake: never Patient Tobacco Use Status: Current everyday Tobacco user Tobacco use type: Cigarette Cigarette Packs Per Day: 0.5 Cigarettes Per Day: 2 Years Smoked: twice amonth e-Cigarette/Vaping Use: Never Used Second Hand Smoke Exposure: Yes service: No Current occupational status: disabled Cognitive needs: No Hearing needs: No Vision needs: Yes Questionnaire PHQ-9 Over the last 2 weeks, how often have you been bothered by any of the following problems? 1. Little interest or pleasure in doing things: not at all 2. Feeling down, depressed, or hopeless: not at all 3. Trouble falling or staying asleep, or sleeping too much: not at all 4. Feeling tired or having little energy: not at all 5. Poor appetite or overeating: not at all 6. Feeling bad about yourself - or that you are a failure or have let yourself or your family down: not at all 7. Trouble concentrating on things, such as reading the newspaper or watching television: not at all 8. Moving or speaking so slowly that other people could have noticed. Or the opposite - being so fidgety or restless that you have been moving around a lot more than usual: not at all 9. Thoughts that you would be better off or of hurting yourself in some way: not at all Total score: 0 Depression Screening Interpretation: Negative Depression Screening Done: Yes Source: Developed by Drs. Raad LClarissa Galvan Kurt Kroenke and colleagues, with an educational maryse from [employer]. Thrive Questionnaire Date Thrive assessed: 06/28/24 I am a: Patient What is your living situation today?: I have a steady place to live Within the past 12 months, did the food you bought not last and you didn't have the money to get more?: Never true Within the past 12 months, did you worry whether your food would run out before you got money to buy more?: Never true Do you have trouble paying for medicines?: No Do you have trouble getting transportation to medical appointments?: No Do you have trouble paying your heating and electricity bill?: No Do you have trouble taking care of your child, family member or friend?: No Do you have trouble with day-to-day activities such as bathing, preparing meals, shopping, managing finances, etc.?: No Are you currently unemployed and looking for a job?: No Are you interested in more education?: No Please select the resources that you would like help with: None Currently or been in a relationship where the following occur: No concerns r eported THRIVE Score: 0 AUDIT C Alcohol Use Questionnaire (AUDIT-C) 1. How often do you have a drink containing alcohol?: Never Total Score: 0 Score Reviewed/Action Taken: No YARITZA-7 AMB Questionnaire YARITZA-7 Date YARITZA - 7 assessed: 06/28/24 Feeling nervous, anxious, or on edge: 0 = Not at all Not being able to stop or control worryin = Not at all Worrying too much about different things: 0 = Not at all Trouble relaxin = Not at all Being so restless that it is hard to sit still: 0 = Not at all Becoming easily annoyed or irritable: 0 = Not at all Feeling afraid as if something awful might happen: 0 = Not at all Total YARITZA-7 score (0-4 normal; 5-9 mild; 10-14 moderate; 15-21 severe): 0 Source: Developed by Clarissa Stanton [employer]en[employer] and colleagues, with an educational maryse from [employer]. Review of Systems Const Denies poor appetite and Denies weakness Eyes Denies no additional complaints ENT Reports Normal hearing present, Denies dizziness, Denies nasal congestion, Denies tinnitus and Denies sore throat Card Denies chest pain, Denies syncope, Denies rapid heart rate and Denies dyspnea Resp Denies cough and Denies dyspnea GI Denies change in stool character, Reports constipation, Denies diarrhea, Denies nausea and Denies vomiting Denies urinary frequency, Denies difficulty voiding and Denies dysuria Neuro Reports Normal hearing present, Denies confusion, Denies dizziness, Denies syncope and Denies weakness Psych Denies confusion Physical exam (Primary Care) Vital Signs: Last Vital Signs Pulse 87 06/28/24 10:20 BP 110/78 06/28/24 10:20 Pulse Ox 99 06/28/24 10:20 Oxygen Delivery Method Room Air 06/28/24 10:20 BMI result Body Mass Index 19.0 Tobacco/Smoking Status: Tobacco use Status Tobacco use date assessed 06/28/24 06/28/24 10:25 Patient Tobacco Use Status Current everyday Tobacco 06/28/24 10:25 Tobacco use type Cigarette 06/28/24 10:25 e-Cigarette/Vaping Use Never Used 06/28/24 10:25 PHQ-9: PHQ-9 Score PHQ-9: Total score 0 06/28/24 10:25 Depression Screening Interpretation: Negative Thrive Assessment: Date of Thrive Assessment Date Thrive assessed 06/28/24 06/28/24 10:25 Currently or been in a relationship where the following occur: No concerns reported Const General: No confusion Orientation/consciousness: No confusion HENMT Head: Yes normocephalic Ears: external ears normal and TM's normal bilaterally Face and sinus: Yes normal facial exam Mouth: moist mucous membranes Throat: Yes tonsils normal Eyes Conjunctivae: conjunctivae normal Pupils: Equal, round and reactive pupils present and Pupil accommodation reflex normal Direct Ophthalmoscopy: normal light reflex Neck Neck: No lymphadenopathy Thyroid: Thyroid normal Chest Chest palpation & inspection: normal inspection of the chest Resp Effort & Inspection: normal respiratory effort and no audible wheezes Auscultation: clear to auscultation bilaterally, no crackles, no wheezes and lung sounds not diminished Cardio Rate: regular rate Rhythm: regular rhythm Peripheral pulses: radial pulses present and dorsalis pedis present GI Palpation (GI): no masses Auscultation: normal bowel sounds and normoactive bowel sounds Rectal Exam - Female: deferred Skin General skin exam: no rashes or lesions noted Rashes: no rashes Neuro General: No confusion Cranial nerves: Yes Equal, round and reactive pupils present and Yes Normal hearing present Cognition (Neuro): normal cognition Gait exam (Neuro): Normal gait present Motor exam (neuro): 5/5 motor strength present throughout Deep tendon reflexes (DTR's): Right brachioradialis reflex intensity grade: 2+, Left brachioradialis reflex intensity grade: 2+, Right patellar reflex intensity grade: 2+ and Left patellar reflex intensity grade: 2+ Extrem General: No edema Assessment and Plan Assessment & Plan (1) Annual physical exam: Code(s): Z00.00 - Encounter for general adult medical examination without abnormal findings Plan: Patient is advised to eat healthy, keep well hydrated, keep active and have adequate sleep. (2) Tobacco abuse: Code(s): Z72.0 - Tobacco use Plan: Patient is strongly advised to stop smoking! (3) Nocturnal hypoxemia: Code(s): G47.34 - Idiopathic sleep related nonobstructive alveolar hypoventilation Plan: Patient follows up with Pulmonary and is placed on oxygen (4) Asthma: Code(s): J45.909 - Unspecified asthma, uncomplicated Plan: Patient follows up with Pulmonary on albuterol inhaler Dupixent and Breo (5) POTS (postural orthostatic tachycardia syndrome): Code(s): I49.8 - Other specified cardiac arrhythmias Plan: Patient has been placed on fluid cortisone seen Cardiology (6) Migraine: Code(s): G43.909 - Migraine, unspecified, not intractable, without status migrainosus Plan: Patient is advised to eat healthy, keep well hydrated, keep active and have adequate sleep. (7) History of esophageal stricture: Comment: esophageal dilatation 02/2015 [facility] Mon Code(s): Z87.19 - Personal history of other diseases of the digestive system Plan: Continue to be followed by Gastroenterology (8) Breast cancer screening by mammogram: Code(s): Z12.31 - Encounter for screening mammogram for malignant neoplasm of breast Orders: Orders Complete Blood Count Auto Diff Today I49.8 - Other specified cardiac arrhythmias Thyroid Stimulating Hormone Today I49.8 - Other specified cardiac arrhythmias Lipid Panel Today E78.00 - Pure hypercholesterolemia, unspecified, I49.8 - Other specified cardiac arrhythmias Vitamin D 25-OH Total Today I49.8 - Other specified cardiac arrhythmias Hepatitis B,C Profile Today I49.8 - Other specified cardiac arrhythmias, R79.89 - Other specified abnormal findings of blood chemistry CT NG by PCR Today I49.8 - Other specified cardiac arrhythmias Erythrocyte Sedimentation Rate Today I49.8 - Other specified cardiac arrhythmias C Reactive Protein Today I49.8 - Other specified cardiac arrhythmias MM tomosynthesis screening BI Today Z12.31 - Encounter for screening mammogram for malignant neoplasm of breast Comprehensive Met. Panel Today I49.8 - Other specified cardiac arrhythmias Free T4 (Free Thyroxine) Today I49.8 - Other specified cardiac arrhythmias Vitamin B12 and Folate Today I49.8 - Other specified cardiac arrhythmias Syphilis Screen Today I49.8 - Other specified cardiac arrhythmias HIV Ab/Ag Today I49.8 - Other specified cardiac arrhythmias Coding Level of Care Code Est Pt Prev Care 40-64y(62480) Diagnoses Annual physical exam Z00.00 Tobacco abuse Z72.0 Nocturnal hypoxemia G47.34 Asthma J45.909 POTS (postural orthostatic tachycardia syndrome) I49.8 Migraine G43.909 History of esophageal stricture Z87.19 Breast cancer screening by mammogram Z12.31 Additional Codes PHQ-9 - 80215 - PHQ-9 Billing: ([id number])
== END 2024-06-28 10:58 | disposition home or self-care (01) ==
PROVIDERS: PCP Internal Medicine; Visit Provider Internal Medicine
DX: Z00.00 Encounter for general adult medical examination without abnormal findings (principal); Z72.0 Tobacco use; G47.34 Idiopathic sleep related nonobstructive alveolar hypoventilation; J45.909 Unspecified asthma, uncomplicated; I49.8 Other specified cardiac arrhythmias; G43.909 Migraine, unspecified, not intractable, without status migrainosus; Z87.19 Personal history of other diseases of the digestive system; Z12.31 Encounter for screening mammogram for malignant neoplasm of breast
CPT/HCPCS: 99396

== ENCOUNTER 2024-07-19 12:34 | Outpatient (REF) | payer OTHER, SELFPAY ==
--- NOTE | ~2024-07-19 | MM_ITS ---
EXAMINATION: MM SCREENING DIGITAL BREAST TOMOSYNTHESIS, BILATERAL CLINICAL INFORMATION: Screening. Asymptomatic. COMPARISON: Mammography: Comparison is made with available priors TECHNIQUE: Digital breast mammography with tomosynthesis is performed in both the craniocaudal and mediolateral oblique views along with computer-aided detection (CAD). FINDINGS: There are scattered areas of fibroglandular density (ACR BI-RADS breast composition Category b). There are no significant masses, abnormal calcifications, or other abnormalities. MM/MM tomosynthesis screening BI IMPRESSION: No mammographic evidence of malignancy. ASSESSMENT: BI-RADS BI-RADS 1 - Negative RECOMMENDATION: Routine annual mammography screening. 1 year F/U This examination should not preclude the clinical evaluation of a suspicious palpable abnormality. This patient's information was entered into a reminder system with a target due date for their next mammogram. Electronically signed by: Silvana Stewart DO 08/01/2024 08:17 PM EDT
[2024-07-19 13:02] LABS: MANUAL DIFF FLAG NO
[2024-07-19 13:53] LABS: Basophils Absolute Auto 0.1 X10*3/uL (0.0-0.2); Basophils Percent Auto 0.8 % (0-2); Eosinophils Absolute Auto 0.1 X10*3/uL (0.0-0.4); Hematocrit 41.2 % (37.0-47.0); Imm Gran Abs Auto 0.02 X10*3/uL (0.00-0.03); Imm Gran Pct Auto 0.3 % (0.0-0.4); Lymphocytes Absolute Auto 1.4 X10*3/uL (1.2-4.9); Mean Corpuscular Hemoglobin 31.8 pg (27.0-33.0); Mean Corpuscular Volume 93.6 fL (80.0-98.0); Mean Platelet Volume 9.3 fL (9.4-12.3); Monocytes Absolute Auto 0.5 X10*3/uL (0.1-1.2); Monocytes Percent Auto 8.7 % (2-11); Neutrophils Percent Auto 65.2 % (45-73); Platelet Count 373 X10*3/uL (160-400); Red Cell Distribution Width 13.1 % (11.0-16.0); White Blood Count 6.1 X10*3/uL (4.8-10.8)
[2024-07-19 14:31] LABS: Erythrocyte Sedimentation Rate 14 MM/HR (0-20)
[2024-07-19 14:47] LABS: Alanine Aminotransferase 11 U/L (0-31); Albumin Level 4.1 g/dL (3.5-5.0); Alkaline Phosphatase 59 U/L (39-117); Anion Gap 10 (12-20); Aspartate Amino Transferase 13 U/L (5-31); Bilirubin Total 0.3 mg/dL (0.0-1.0); Blood Urea Nitrogen 8 mg/dL (9-16); C Reactive Protein < 0.04 mg/dL (< or = 0.50); Calcium 9.1 mg/dL (8.4-10.2); Carbon Dioxide 27 mmol/L (22-29); Chloride 103 mmol/L (96-108); Cholesterol 168 mg/dL (<200); Estimated Glomerular Filt Rate > 60; Glucose Random 93 mg/dL (60-115); HDL Cholesterol 52 mg/dL (>40); LDL Cholesterol Calculated 101 mg/dL (<100); Potassium 4.1 mmol/L (3.3-5.1); Sodium 136 mmol/L (135-145); Total Protein 8.1 g/dL (6.5-8.0); Triglycerides 75 mg/dL (<150)
[2024-07-19 15:02] LABS: Free T4 (Free Thyroxine) 0.81 ng/dL (0.71-1.85); Thyroid Stimulating Hormone 1.57 uIU/mL (0.32-4.0); Vitamin D 25-OH Total 52.8 ng/mL (>30)
[2024-07-19 15:06] LABS: Folate 5.7 ng/mL (> or = 4.0); Vitamin B12 317 pg/mL (200-900)
[2024-07-22 08:44] LABS: HBS Num1 521.99 mIU/mL (0-7.99); HBc Num1 1.34 S/CO (0.00-0.79); HBsAGNum1 0.26 S/CO (0.00-0.99); HIV AB/AG Nonreactive (Nonreactive); HIV Num 1 0.05 S/CO (0.00-0.99); Hepatitis B Surface Antigen Negative (Negative); ~HepC Num1 0.24 S/CO (0.00-0.79); ~Hepatitis B Surface Antibody REACTIVE (Nonreactive); ~Hepatitis C Antibody Nonreactive (Nonreactive)
[2024-07-22 08:49] LABS: Syphilis Screen Reactive (Nonreactive)
[2024-07-22 09:30] LABS: HBc Num2 1.34 S/CO; HBc Num3 1.42 S/CO; Hepatitis B Core Antibody Reactive (Nonreactive)
[2024-07-27 11:59] LABS: RPR Quantitative Non-Reactive (Nonreactive)
[2024-07-27 12:00] LABS: T.Pallidum Particle Agg Test Non-Reactive (Nonreactive)
== END 2024-07-19 12:35 | disposition home or self-care (01) ==
LOC: HO.MAMMO 12:34
PROVIDERS: PCP Internal Medicine; Visit Provider Internal Medicine
DX: Z12.31 Encounter for screening mammogram for malignant neoplasm of breast (principal); I49.8 Other specified cardiac arrhythmias; E78.00 Pure hypercholesterolemia, unspecified; R79.89 Other specified abnormal findings of blood chemistry
CPT/HCPCS: 36415; 77063; 77067; 80053; 80061; 82306; 82607; 82746; 84439; 84443; 85025; 85652; 86140; 86592; 86704; 86706; 86780; 86803; 87340; 87389

== ENCOUNTER → 2024-07-19 12:45 | Outpatient (BNV) | payer OTHER, SELFPAY | PROVIDERS: PCP Internal Medicine; Visit Provider Internal Medicine | DX: Z12.31 Encounter for screening mammogram for malignant neoplasm of breast (principal) | CPT/HCPCS: 77063; 77067 ==

== ENCOUNTER 2024-11-11 15:01 | Outpatient (AMB) | payer OTHER, SELFPAY ==
[2024-11-11 15:05] VITALS: BP 100/60; PULSE 85; O2SAT 100
--- NOTE | 2024-11-11 15:05 | A.OFFVIS_ITS ---
Vital Signs 11/11/24 15:05 Weight 111 lb 5.335 oz BP 100/60 Blood Pressure Location Rt brachial Position Sitting Pulse 85 Pulse Source Pulse Oximeter Pulse Oximetry (%) 100 Oxygen Delivery Method Room Air Intake Visit Reasons: asthma Allergies egg Allergy (Severe, Verified 11/11/24 15:08) Hives insect venom Allergy (Severe, Verified 11/11/24 15:08) Rash Iodinated Contrast Media Allergy (Severe, Verified 11/11/24 15:08) Hives melon Allergy (Severe, Verified 11/11/24 15:08) Hives orange Allergy (Severe, Verified 11/11/24 15:08) Hives pear Allergy (Severe, Verified 11/11/24 15:08) Hives immune globulin,alpha (IgA) greater than 50 mcg/mL [From Octagam] Allergy (Intermediate, Verified 11/11/24 15:08) Anaphylaxis immune globulin,gamma (IgG) human [From Octagam] Allergy (Intermediate, Verified 11/11/24 15:08) Anaphylaxis maltose [From Octagam] Allergy (Intermediate, Verified 11/11/24 15:08) Anaphylaxis adhesive tape Allergy (Mild, Verified 11/11/24 15:08) Rash Inhaled Anesthetics (Halogen Based) Allergy (Mild, Verified 11/11/24 15:08) 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 Medication List - Last Reconciled 11/11/24 by Lena Yang LPN albuterol sulfate 5 mg inhalation Q4H PRN albuterol sulfate 90 mcg/actuation 2 puffs inhalation Q4-6H PRN azelastine 2 sprays intranasal BID 90 days baclofen 10 mg PO TID cholecalciferol (vitamin D3) 50 mcg PO DAILY cromolyn 100 mg PO QID dextroamphetamine-amphetamine 10 mg 1 tab PO DAILY dextroamphetamine-amphetamine 25 mg ER 1 cap PO QAM diphenhydramine HCl (Benadryl) 50 mg (2 x 25 mg) PO ONCE dupilumab (Dupixent) mg subcut epinephrine 0.3 mg IM Q10M PRN famotidine 20 mg PO BID fexofenadine 180 mg PO QID PRN fludrocortisone 0.1 mg PO DAILY 90 days fluocinonide 0.05% 1 appl topical BID fluticasone furoate-vilanterol 200-25 mcg/dose (Breo Ellipta) 1 ea PO DAILY gabapentin 300 mg PO TID 90 days immune globul G-gly-IgA avg 46 20 gram/200 mL (10 %) (Gamunex-C) NEUROLOGY Dr. 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 She denies any recent exacerbations. No significant changes since prior visit. 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 Brother Afib Paternal Grandfather Colon cancer Maternal Aunt Liver cancer Paternal Aunt Sarcoidosis Other Family history of autoimmune disorder Social History (Updated 06/28/24 @ 10:43 by Wesley Grover MD) Housing: Apartment Alcohol intake: never Patient Tobacco Use Status: Current everyday Tobacco user Tobacco use type: Cigarette Cigarette Packs Per Day: 0.5 Cigarettes Per Day: 2 Years Smoked: twice amonth e-Cigarette/Vaping Use: Never Used Second Hand Smoke Exposure: Yes service: No Current occupational status: disabled Cognitive needs: No Hearing needs: No Vision needs: Yes Review of Systems Const Denies daytime sleepiness, Denies excessive sweating, Denies fatigue, Denies fever(s), Denies lethargy, Denies malaise, Denies night sweats, Denies snoring and Denies weight loss Eyes Denies blurry vision and Denies itchy eyes ENT Denies nasal congestion, Denies post nasal drip, Denies sinus pain, Denies sinus pressure and Denies other ( Thrush) Card Denies chest pain, Denies pedal edema, Denies dyspnea, Denies orthopnea and Denies paroxysmal nocturnal dyspnea Resp Denies cough, Denies hemoptysis, Denies excessive phlegm production, Denies dyspnea, Denies snoring and Denies wheezing GI Denies abdominal pain and Denies heartburn Musc Denies myalgias, Denies arthralgias and Denies joint swelling Skin/Breast Denies rash Neuro Denies memory loss and Denies seizure-like activity Psych Denies abnormal sleep pattern, Denies anxiety and Denies memory loss Endo Denies excessive sweating, Denies fatigue and Denies heat intolerance Zachery/Lymph Denies easy bruising Aller/Immun Denies itchy eyes, Denies seasonal rhinorrhea and Denies wheezing Physical Exam Vital Signs: Last Vital Signs Pulse 85 11/11/24 15:05 BP 100/60 11/11/24 15:05 Pulse Ox 100 11/11/24 15:05 Oxygen Delivery Method Room Air 11/11/24 15:05 Const General: no acute distress and alert Nutritional Appearance: not obese Orientation/consciousness: Other orientation findings ( oriented) HEENT Head: Yes atraumatic Eyes General: appearance normal, both eyes and all related structures Sclerae: sclerae normal EOM: EOMs intact bilaterally Neck Neck: Yes supple Lymphatic: no lymphadenopathy noted Resp Effort & Inspection: normal respiratory effort and no use of accessory muscles Auscultation: clear to auscultation bilaterally Cardio Rate: regular rate Rhythm: regular rhythm Heart sounds: no gallops, no murmurs and no rubs Skin General skin exam: other ( warm) Extrem General: No clubbing, No cyanosis and No edema Assessment & Plan Assessment & Plan (1) Asthma: Code(s): J45.909 - Unspecified asthma, uncomplicated Category: Medical Plan: Well controlled on Breo and albuterol MDI. Continue current regimen. (2) Nocturnal hypoxemia: Code(s): G47.34 - Idiopathic sleep related nonobstructive alveolar hypoventilation Category: Medical Plan: Well controlled on nocturnal oxygen. Continue nocturnal supplemental oxygen. Coding Level of Care Code Est Pt Level 4 (60733) Diagnoses Asthma J45.909 Nocturnal hypoxemia G47.34
--- OUTSIDE RECORDS SUMMARY | 2024-11-11 17:03 | XMS_ITS ---
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 Name Role Phone Patricia Benson Unavailable [phone] ALLERGIES, ADVERSE REACTIONS, ALERTS Substance Code Code System Type Reaction Severity Status Start Date End Date iodine 5933 RxNorm Drug allergy () 0 Gamunex 523586 RxNorm Drug allergy () 0 epinephrine 3992 RxNorm Drug allergy () 0 Bees RxNorm Other substance allergy () 1 MEDICATIONS Medication Code Code System Start Date Stop Date Route Dosage Directions Fill Instructions Augmentin 398460 RxNorm 2021 oral 1 Breo Ellipta RxNorm 2021 baclofen RxNorm 2021 montelukast RxNorm 2021 cromolyn RxNorm 2021 azelastine RxNorm 2021 gabapentin RxNorm 2021 ondansetron RxNorm 2021 fluticasone propionate RxNorm 2021 pentoxifylline RxNorm 2021 metoprolol succinate RxNorm 2021 albuterol sulfate RxNorm 2021 famotidine RxNorm 2021 Adderall RxNorm 2021 Botox RxNorm 2021 Gamunex-C RxNorm 2021 Dupixent Syringe RxNorm 023 triamcinolone (bulk) RxNorm 023 fludrocortisone 0 RxNorm oral sumatriptan 0 RxNorm intranasal PROBLEMS Problem Name Code Code System Start Date End Date Stat Hypertension 75191170 [facility] 09/01/2022 Active Asthma 668631637 [facility] 09/01/2022 Active Allergic rhinitis 88275763 [facility] 09/01/2022 A ctive GERD 902801932 [facility] 09/01/2022 Active Contact with and (suspected) exposure to COVID-19 (Z20.822) [facility] 09/05/2022 Inactive Crushing injury of other finger, initial encounter 29644833 [facility] 03/21/2023 In active Malignant hyperthermia (finding) 751447819 [facility] Active Migraine, unspecified 66326060 [facility] Active Compression of vein 255622165 [facility] 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 Malignant mast cell neoplasm, unspecified 340739494 [facility] Active Unspecified sprain of left wrist, initial encounter 21293891426580328 [facility] 07/21/2023 Active Pain in left elbow 346820753 [facility] 07/21/2023 A ctive ENCOUNTERS Encounter Diagnosis Code Code System Date Stat us Unspecified sprain of left w rist, initial encounter 04910676068827412 [facility] 07/21/2023 Active Pain in left elbow 262526865 [facility] 07/21/2023 Active IMMUNIZATIONS * None VITAL SIGNS Code Code System Vitals Name Date Value and Un its 8462-4 [facility] Blood Pressure-Diastolic 07/21/2023 87 mmHg 8480-6 [facility] Blood Pressure-Systolic 07/21/2023 1 15 mmHg 8867-4 [facility] Heart Rate 07/21/2023 91 /min 9279-1 [facility] Respiratory Rate 07/21/2023 18 /min 8310-5 [facility] Body Temperature 07/21/2023 97.1 F 39954-3 [facility] Oxygen Saturation 07/21/2023 99 % SOCIAL HISTORY * None PROCEDURES Code Code System Procedure Date Status Notes L3908 Cpt4 Wrist Splint, Left 07/21/2023 completed MEDICAL EQUIPMENT * Patient has no history of implantable devices ASSESSMENT Assessment I do not see any clear signs of fracture on the x-rays.I suspect you have sprained the wrist.Some of the pain referring to the elbow with the clicking is likely result of muscle tightness after the fall, however, if this is not improving/resolving over the next 1 to 2 weeks please arrange follow-up with an orthopedist.Use the wrist splint for comfort over the next 1 to 2 weeks.Elevate the arm at rest.Ice for 20 minutes at a time, 3-4 times daily, for the next few days and then as needed.If symptoms or not improving please follow-up with orthopedics.[facility]Address: [address], [place], [place] [address]Di[facility]: [facility]Address: [address], [place], [place] [address]Rhxds: TREATMENT PLAN Type Description Date APPOINTMENT If not feeling jordy r in 3 day(s), please see your primary care physician. If you do not have a primary care physician, please return to this clinic. 07/21/2023 Lab Tests None GOALS * None HEALTH CONCERNS * No Health Concerns FUNCTIONAL AND COGNITIVE STATUS * None CONSULTATION NOTES * None DISCHARGE SUMMARY NOTES * None HISTORY AND PHYSICAL NOTES * Reason for visit - Injury IMAGING NOTES * /[place] History: Pain-Right Forearm: The patient presents with a chief complaint of pain of the right elbowand right forearm since Jul 20, 2023. It has the following qualities: aching and shooting. Context - Initial History: The patient reports it was the result of an injury that occurred on 07/20/2023. fall.LEFT - HAND AND WRIST OR MORE VIEWS Comparison: FINDINGS:Soft tissue swelling is appreciable. No acute fracture or subluxation is evident on provided views.There are no advanced degenerative changes are evident.No radiodense foreign bodies are identified. IMPRESSION:No acute osseous abnormality.LEFT - ELBOW 3 OR MORE VIEWS FINDINGS:Soft tissue swelling is appreciable. No joint effusion is e vident.No acute fracture or subluxation is evident on provided views.There are no advanced degenerative changes are evident.No radiodense foreign bodies are identified.IMPRESSION:No acute osseous abnormality. LABORATORY REPORT NARRATIVE NOTES * None PATHOLOGY REPORT NARRATIVE NOTES * None PROGRESS NOTES * None
--- OUTSIDE RECORDS SUMMARY | 2024-11-11 17:03 | XMS_ITS ---
Author Organization [employer] [place] [email or web address]. 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 Care Team Providers Care Aids Social Worker Name Role Phone Jarrett Huff MD Unavailable Po Wesley BROOKS Primary Care Provider Jassi Oseguera Unavailable Jarrett Huff MD Unavailable Angelito Ruelas MD Unavailable [phone] Po Wesley BROOKS Primary Care Provider Jarrett Huff MD Unavailable Po Wesley BROOKS Primary Care Provider Jassi Oseguera Unavailable Jarrett Huff MD Unavailable Po Wesley BROOKS Primary Care Provider Jassi Oseguera Unavailable Jarrett Huff MD Unavailable Po Wesley BROOKS Primary Care Provider Jassi Oseguera Unavailable Unavailable Unavailable Unavailable Unavailable Unavailable Unavailable Angelito Ruelas MD Unavailable Po Wesley BROOKS Primary Care Provider Allergies Allergy Classification Reported Allergen(s) Allergy Type Date of Onset Reaction(s) Care Provider Facility Unclassified (5 sources) Egg-Derived Products Propensity to adverse reactions 019 Ysabel Hamilton ID Work Phone: [facility] Work Phone: Comment on above: Apples and Oats Encounters Encounter Date Encounter Type Encounter Diagnosis Care Provider Facility Start: 07-25-2024 12:00-0400 Telephone encounter Jarrett Huff MD Work Phone: [facility] [place] Start: 07-17-2024 12:00-0400 Telephone encounter Jarrett Huff MD Work Phone: [facility] Comment on above: Jury Administration (Jarrett Huff MD) Start: 06-19-2024 13:00-0400 End: 06-19-2024 13:40-0400 Erroneous Encounter ERRONEOUS ENCOUNTER--DISREG DARREN Corie Woodard APRN Work Phone: [facility] Comment on above: ERRONEOUS ENCOUNTER--DISREGARD (Primary Dx) Start: 06-14-2024 12:00-0400 Refill Stiff-person syndrome Jarrett Huff MD Work Phone: 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 Start: 01-01-2024 12:00-0500 Orders Only Cobalamin deficiency Corielynn Woodard APRN Work Phone: [facility] Comment on above: B12 deficiency (Primary Dx) Start: 12-15-2023 12:00-0500 Telephone encounter External Provider Work Phone: 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 (Primary Dx); Migraine without aura and without status migrainosus, not intractable Start: 12-13-2023 12:00-0500 Orders Only Jarrett Huff MD Work Phone: [facility] [place] Start: 12-13-2023 12:00-0500 Refill Stiff-person syndrome Jarrett Huff MD Work Phone: [facility] [place] Comment on above: 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 2 ML dupilumab 150 MG/ML Prefilled Syringe (10 sources) Interleukin-4 Receptor alpha Antagonist Start: 12-12-2023 Dupixent 300 MG/2ML prefilled syringe Plan of Treatment Date Care Activity Detail Author Start: 01-23-2025 End: 01-23-2025 Patient encounter procedure 01/23/2025 11:30 AM EDT Office Visit [facility] [address] [phone] Jarrett Huff MD [address] [place] [address] [address] [place] [address] [facility] [place] Start: 06-19-2024 End: 06-19-2024 Patient encounter procedure 06/19/2024 1:00 PM EDT Office Visit [facility] [address] [phone] Corie Woodard APRN [address] [place] [address] [facility] [place] Start: 06-06-2024 Administration of influenza vaccine Influenza Vaccine [facility] Start: 07-07-2023 COVID-19 Vaccine ( season) COVID-19 Vaccine ( season) [facility] Start: 2002 Hepatitis B Vaccines (1 of 3 - 19+ 3-dose series) Hepatitis B Vaccines (1 of 3 - 19+ 3-dose series) [facility] Start: 1989 Pneumococcal Vaccine : Pediatric (0-5 Years) and At-Risk Patients (6 to 64 Years) (1 of 2 - PCV) Pneumococcal Vaccine: Pediatric (0-5 Years) and At-Risk Patients (6 to 64 Years) (1 of 2 - PCV) [facility] Complete Blood Count , with Differential Complete Blood Count, with Differential Lab Routine Migraine without aura and without status migrainosus, not intractable 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 Ordered: 12/15/2023 [facility] Comment on above: Ordered: 12/15/2023 Comprehensive metabo lic 2000 panel - Serum or Plasma Comprehensive Metabolic Panel Lab Routine Migraine without aura and without status migrainosus, not intractable 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 Ordered: 12/15/2023 [facility] Comment on above: Ordered: 12/15/2023 Creatine kinase [Enzymatic activity/volume] in Serum or Plasma Creatine Kinase (CK) Lab Routine Migraine without aura and without status migrainosus, not intractable 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 Ordered: 12/15/2023 [facility] Comment on above: Ordered: 12/15/2023 Homocysteine, Total, Serum Homocysteine, Total, Serum Lab Routine Migraine without aura and without status migrainosus, not intractable 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 Ordered: 12/15/2023 [facility] Comment on above: Ordered: 12/15/2023 Iron, TIBC, and Ferr itin Panel Iron, TIBC, and Ferritin Panel Lab Routine Migraine without aura and without status migrainosus, not intractable 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 Ordered: 12/15/2023 [facility] Comment on above: Ordered: 12/15/2023 Methylmalonic Acid, Serum Methylmalonic Acid, Serum Lab Routine Migraine without aura and without status migrainosus, not intractable 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 Ordered: 12/15/2023 [facility] Comment on above: Ordered: 12/15/2023 Prealbumin [Mass/vol ume] in Serum or Plasma Prealbumin Lab Routine Migraine without aura and without status migrainosus, not intractable 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 Ordered: 12/15/2023 [facility] Comment on above: Ordered: 12/15/2023 Vitamin B1, Whole Blood Vitamin B1, Whole Blood Lab Routine Migraine without aura and without status migrainosus, not intractable 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 Ordered: 12/15/2023 [facility] Comment on above: Ordered: 12/15/2023 Vitamin B12 and Folate Vitamin B 12 and Folate Lab Routine Migraine without aura and without status migrainosus, not intractable 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 Ordered: 12/15/2023 [facility] Work Phone: Comment on above: Ordered: 12/15/2023 Vitamin B2, Plasma Vitamin B2, P lasma Lab Routine Migraine without aura and without status migrainosus, not intractable 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 Ordered: 12/15/2023 [facility] Comment on above: Ordered: 12/15/2023 Vitamin B6 Vitamin B6 Lab R outine Migraine without aura and without status migrainosus, not intractable Stiff person syndrome with positive glutamic acid decarboxylase (YARTIZA) antibody Ordered: 12/15/2023 [facility] Comment on above: Ordered: 12/15/2023 Vitamin D, 25-Hydroxy Vitamin D, 25-Hydroxy Lab Routine Migraine without aura and without status migrainosus, not intractable 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 Ordered: 12/15/2023 [facility] Comment on above: Ordered: 12/15/2023 Problems Active Problems Problem Classification Problem Date Last Recorded Documented Date Chronic Condition Indicator Provider Unclassified (1 source) ERRONEOUS ENCOUNTER--DIS REGARD 06-19-2024 Corie Woodard APRN Work Phone: Past or Other Problems Problem Classification Problem Date Last Recorded Documented Date Chronic Condition Indicator Provider Nutritional deficiencies (1 source) Cobalamin deficiency; Translations: [Deficiency of other specified B group vitamins] 01-01-2024 Episodic Corie Woodard APRN Work Phone: Social History Date Type Detail Facility Start: 06-18-2024 Gender identity Identifies as female gender (finding) [facility] Start: 1985 Sex Assigned At Female [facility] Vital Signs Date Time Vital Sign Value Performing Clinician Faci lity 12-15-2023 11:39-0500 Body height 162.6 cm Corie Woodard APRN Work Phone: [facility] 12-15-2023 11:39-0500 Body mass index (BMI) [Ratio] 19.74 kg/m2 Corie Woodard APRN Work Phone: [facility] 12-15-2023 11:39-0500 Body weight 52.16 kg Corie Woodard APRN Work Phone: [facility] 12-15-2023 11:39-0500 BP (Blood pressure) 108/79mm[Hg] Corie Woodard APRN Work Phone: [facility] 12-15-2023 11:39-0500 Heart rate 94 /min Corie Woodard APRN Work Phone: [facility] 12-15-2023 11:39-0500 SaO2% (BldA) [Mass fraction] 97 % Corie Woodard APRN Work Phone: [facility] Clinical Notes 12-15-2023 to 07-26-2024 Telephone Encounter - Claudia Hamilton MA - 07/26/2024 10:18 AM EDTTelephone Encounter - Claudia Hamilton MA - 07/26/2024 10:18 AM Otto Woodard APRN - 06/19/2024 1:11 PM EDT Note Date & Type Note Facility 07-26-2024 Telephone encount er Note FYI- Awaiting re-testing to see about treatment and will plan the IVIG infusion accordingly and gave the fax number to be given the doctors that is testing and treating the Syphilis to send the office a copy of the lab reports for your review. [facility] 07-26-2024 Miscellaneous Notes Formattin g of this note might be different from the original. FYI- Awaiting re-testing to see about treatment and will plan the IVIG infusion accordingly and gave the fax number to be given the doctors that is testing and treating the Syphilis to send the office a copy of the lab reports for your review. Let her know that yes, she may hold on the IVIG for 6 weeks. Please also obtain a copy of that blood test result. Received a call from the infusion nurse. Patient had routine blood work done and tested positive for Syphilis. They read that IVIG can cause a false positive. They are going to contact the PCP to do a test to determine if the patient actually has Syphilis. In the meantime they want to know if the patient can stop the IVIG for 6 weeks until they get the test back? documented in this encounter [facility] 07-25-2024 Telephone encount er Note Let her know that yes, she may hold on the IVIG for 6 weeks. Please also obtain a copy of that blood test result. [facility] 07-25-2024 Telephone encount er Note Received a call from the infusion nurse. Patient had routine blood work done and tested positive for Syphilis. They read that IVIG can cause a false positive. They are going to contact the PCP to do a test to determine if the patient actually has Syphilis. In the meantime they want to know if the patient can stop the IVIG for 6 weeks until they get the test back? [facility] Work Phone: 07-18-2024 Telephone encount er Note Please obtain a copy of the letter for me to complete. [facility] 07-18-2024 Miscellaneous Notes Formattin g of this note might be different from the original. Please obtain a copy of the letter for me to complete. Patient called in today to inform that the patient is asking for a provider letter to be sent over to Office of Jury Commissioner for Jury Duty since the patient lives in [facility]. The patient is suppose to be sending over photos of the letter for more information. The deadline date is 08/15/2024. Here are the details: Office of [facility] Address: [address] [place] [address], [facility] documented in this encounter [facility] 07-17-2024 Telephone encount er Note Patient called in today to inform that the patient is asking for a provider letter to be sent over to Office of Jury Commissioner for Jury Duty since the patient lives in [facility]. The patient is suppose to be sending over photos of the letter for more information. The deadline date is 08/15/2024. Here are the details: [facility] Address: [address] [place] [address], [id number] [facility] 06-19-2024 Solar Energy Advisor Authentication Interface Message Text This encounter was created in error - please disregard. [facility] 06-19-2024 Solar Energy Advisor Authentication Interface Message Text This encounter was created in error - please disregard. [facility] 06-19-2024 History of Presen t illness Narrative This encounter was created in error - please disregard. documented in this encounter [facility] 06-19-2024 Reason for visit Narrative Reason Onset Date Comments Error 06/19/2024 [id number] Telephone encounter Note* Telephone Encounter - Claudia Hamilton MA - 02/15/2024 2:47 PM EDT FYI_ processed prior authorization on CMM for Gamunex-C 20 gm/200 ml #4 each for 28 days and this is now pending for review and is awaiting decision from the insurance company. HENNESSY: [id number] (pend) [id number] Miscellaneous Notes* Telephone Encounter - Claudia Hamilton MA - 02/15/2024 2:47 PM EDT FYI_ processed prior authorization on CMM for Gamunex-C 20 gm/200 ml #4 each for 28 days and this is now pending for review and is awaiting decision from the insurance company. HENNESSY: [id number] (pend) documented in [id number] History of Present illness Narrative* Corie Woodard APRN - 01/01/2024 8:35 AM EST ERROR documented in [id number] Telephone encounter Note* Telephone Encounter - Ankita Xochilt - 12/15/2023 1:32 PM EST MSOT - Requesting prior authorization for: Medication: ATOGEPANT 60 MG TAB (QULIPTA) Quantity: 30 Days Supply: 30 Diagnosis (ICD10): Migraine without aura and without status migrainosus, not intractable [G43.009] Can you please initiate benefits investigation. Thank you! Ankita Lemon Pharmacy Liaison [id number] Miscellaneous Notes* Telephone Encounter - Ankita Xochilt - 12/15/2023 1:32 PM EST MSOT - Requesting prior authorization for: Medication: ATOGEPANT 60 MG TAB (QULIPTA) Quantity: 30 Days Supply: 30 Diagnosis (ICD10): Migraine without aura and without status migrainosus, not intractable [G43.009] Can you please initiate benefits investigation. Thank you! Ankita Lemon Pharmacy Liaison documented in this encounterM[id number] Instructions* Patient Instructions* Croie Woodard APRN - 12/15/2023 12:17 PM EST -Stop AIMOVIG. -Start Quilipta 60mg once daily. -Obtain blood work at [facility]. You do not have to fast. -Return in 6 months for follow up. Call sooner if needed. documented in this [facility]02-09-2024 History of Present illness Narrative* Corie Woodard APRN - 12/15/2023 11:40 AM EST History of Present Illness Patient is a 38 y.o. 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 Per chart review of relevant history: hersymptoms started in ~2004, but experienced more progression in [id number]. 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 She was having daily episodes of muscle spasms throughout her body. Historical Medications: octagam - anaphylactic reaction Flexeril - not effective Since her last visit, oRshni Lorenzo reports she does not feel like AIMOVIG has been helping with her migraines. She has about 2-3 migraines per month. They have not been as severe as they were inthe past. She uses sumatriptan PRN, which works well. She does have constipation and increased muscle spasms around the time she uses AIMOVIG. She is tolerating IVIG well and feels it is working. Shealso spins fire, which she thinks has been helping her spasms and balance. No recent falls. Review of Systems 10 other systems reviewed and are negative unless otherwise noted on scanned ROS form completed by the patient. Past Medical History: Diagnosis Date ? Dysautonomia (HCC) ? Fall 09/27/2022 one fall no major injuries ? Falls a few falls since last visit ? Falls infrequently 02/05/2021 couple falls, no injuries ? Falls infrequently 04/30/2021 couple falls no injuries ? Falls infrequently 10/12/2021 few falls no major injuries ? Falls infrequently 01/04/2022 ? Falls infrequently 04/12/2022 few falls; one fall muscle spasms ? YARITZA (generalized anxiety disorder) ? Mast cell activation (HCC) ? May-Thurner syndrome ? Orthostatic headache ? Patient had no falls in past year 07/05/2022 ? Patient had no falls in past year 06/06/2023 ? Pelvic congestion syndrome ? Positive YARITZA antibody ? SMAS (superior mesenteric artery syndrome) (HCC) ? Stiff person syndrome Past Surgical History: Procedure Laterality Date ? ENDOMETRIAL ABLATION 03/10/2015 ? ESOPHAGEAL DILATION 02/23/2015 ? HYSTERECTOMY 10/13/2017 ? NASAL ENDOSCOPY 05/20/2016 ? VENOGRAM INJECTION 10/08/2015 RENAL VENOGRAM Family History Problem Relation Age of Onset ? Diabetes Mother ? Heart disease Mother ? Allergies Father ? Pacemaker Father ? Atrial fibrillation Brother ? Allergies Brother ? Dementia Paternal Grandmother Social History Socioeconomic History ? Marital status: Spouse name: Not on file ? Number of children: Not on file ? Years of education: Not on file ? Highest education level: Not on file Occupational History ? Not on file Tobacco Use ? Smoking status: Every Day Packs/day: .5 Types: Cigarettes ? Smokeless tobacco: Current ? Tobacco comments: quit on off Vaping Use ? Vaping Use: Never used Substance and Sexual Activity ? Alcohol use: Never ? Drug use: Never ? Sexual activity: Not on file Other Topics Concern ? Not on file Social History Narrative ? Not on file Social Determinants of Health Financial Resource Strain: Not on file Food Insecurity: Not on file Transportation Needs: Not on file Physical Activity: Not on file Stress: Not on file Social Connections: Not on file Housing Stability: Not on file ? albuterol (PROVENTIL HFA; VENTOLIN HFA) 108 (90 Base) MCG/ACT inhaler ? albuterol (PROVENTIL) (5 mg/mL) 0.5% nebulizer solution Take 1 mL (5 mg total) by nebulization 4 times daily (every 6 hours) as needed for wheezing. ? amphetamine-dextroamphetamine (ADDERALL XR) 25 MG 24 hr capsule Take 1 capsule (25 mg total) by mouth every morning. ? amphetamine-dextroamphetamine (ADDERALL) 10 MG tablet Take 1 tablet (10 mg total) by mouthdaily. ? Azelastine HCl 137 MCG/SPRAY nasal spray 2 sprays into each nostril 2 (two) times a day. ? baclofen (LIORESAL) 10 MG tablet TAKE 1 TABLET BY MOUTH THREE TIMES A DAY NEEDED FOR MUSCLE SPASM ? Breo Ellipta 200-25 MCG/ACT inhaler INHALE 1 PUFF BY MOUTH EVERY DAY ? cromolyn (GASTROCROM) 100 MG/5ML solution Take 5 mL (100 mg total) by mouth as needed. ? diphenhydrAMINE (BENADRYL) 25 mg capsule Take 1 capsule (25 mg total) by mouth 4 times daily (every 6 hours) as needed for itching. ? Dupixent 300 MG/2ML prefilled syringe ? EPINEPHrine 0.15 mg/0.3 mL IJ auto-injection Inject 0.3 mL (0.15 mg total) into the shoulder, thigh, or buttocks once as needed for allergic reaction. ? famotidine (PEPCID) 20 MG tablet Take 1 tablet (20 mg total) by mouth 2 (two) times a day. ? fexofenadine (JOSEPH) 180 MG tablet Take 1 tablet (180 mg total) by mouth 4 (four) times a day. Administer with water only; do not administer with fruit juices. ? fludrocortisone (FLORINEF) 0.05MG tablet Take 2 split tablet (0.1 mg total) by mouth daily. ? fluocinonide (LIDEX) 0.05 % cream APPLY TO AFFECTED AREAS TWICE DAILY FOR 2 WEEKS, BREAK FOR 1 WEEK, REPEAT NEEDED. ? gabapentin (NEURONTIN) 300 MG capsule Take 1 capsule (300 mg total) by mouth 3 (three) times a day. ? ibuprofen (MOTRIN) 200 MG tablet Take 1 tablet (200 mg total) by mouth 4 times daily (every 6 hours) as needed for mild pain. ? immune globulin, human, 10% in solution (GAMUNEX-C) IV Premix 200 mL (20 g total). ? metoPROLOL SUCCINATE (TOPROL-XL) 25 MG 24 hr tablet TAKE 2 TABLETS BY MOUTH EVERY DAY IN THE MORNING AND 1 TABLET EVERY EVENING ? montelukast (SINGULAIR) 10 MG tablet Take 1 tablet (10 mg total) by mouth nightly. ? ondansetron (ZOFRAN-ODT) 4 MG disintegrating tablet Take 1 tablet (4 mg total) by mouth 3 times daily (every 8 hours). ? Oxygen 2 L/min. Saturation Goal: % Equipment: Rate, Route: Humidification: Frequency: Duration of Need: ? pentoxifylline (TRENtal) 400 MG CR tablet Take 1 tablet (400 mg total) by mouth 3 (three) times a day with meals. ? SUMAtriptan (IMITREX) 50 MG tablet TAKE 1 TABLET BY MOUTH ONCE NEEDED FOR MIGRAINE, MAYREPEAT IN 2 HOURS IF UNRESOLVED, MAX 4/24HRS ? triamcinolone (KENALOG) 0.1 % cream APPLY TWICE DAILY TO RASH ON THE LEGS FOR 2 WEEKS BREAK ONE WEEK THEN REPEAT NEEDED. ? Vitamin D3 (CHOLECALICEROL) 2000 units tablet Take 1 tablet (2,000 Units total) by mouth daily. ? erenumab-aooe (AIMOVIG) 140 MG/ML Solution Auto-injector injection Inject 1 pen(s) (140 mgtotal) under the skin every 30 days (once a month). ? OnabotulinumtoxinA (BOTOX IJ) 300 Units every 12 (twelve) weeks. ? proMETHAZINE (PHENERGAN) 25 MG tablet Take 1 tablet (25 mg total) by mouth as needed for nausea or vomiting. Allergies Allergen Reactions ? Oranges Fever ? Eggs Or Egg-Derived Products Hives Apples and Oats ? Loie-Hznjcz-Orrd [Alimentum] Unknown/Patient and Family Unable to Define ? Epinephrine Hives Other reaction(s): Unknown Other reaction(s): Unknown ? Iodinated Contrast Media Hives Other reaction(s): Unknown ? No Known Allergies Unknown/Patient and Family Unable to Define ? Insect Extract Itching Physical Exam Vitals: 12/15/23 1139 BP: 108/79 BP Location: Left arm Patient Position: Sitting Cuff Size: Medium (Standard) Pulse: 94 SpO2: 97% Weight: 52.2 kg (115 lb) Height: 1.626 m (5' 4 ) General Exam General: no apparent distress, cooperative, well developed, well nourished. NECK: Supple, full range of motion EXT: no clubbing, cyanosis, or edema Neurological Exam Mental Status Alert and oriented to person, place, time, and situation Cranial Nerves III, IV, : EOMI, VII: facial strength symmetric and strong bilaterally; speech - no dysarthria VIII: hearing right - NL and left- NL XI: symmetric shoulder shrug Motor There is no pronator drift of out-stretched arms. Muscle bulk is normal. Strength is full bilaterally. Tone is normal. Sensory Light touch - normal Cerebellar Finger to nose - normal bilaterally. Gait Normal stance and stride Assessment: Roshni Lorenzo is a 38 y.o. female who returns today for follow up of Stiff Person Syndrome. SPSis stable, she will continue IVIG infusions and muscle relaxers. For migraines, she will stop AIMOVIG and start Qulipta. We will order annual blood work. Plan: - [facility] at home IVIG infusion over 4 days per month -Stop AIMOVIG and start Qulipta. - Continue baclofen 10mg 1 tab q day-TID PRN for spasms - Continue sumatriptan 50 mg prn - Continue exercising - Obtain blood work. - Return to office in 6 months for follow-up Patient seen by and plan discussed with and approved by Dr. Huff. I spent a total of 40 minutes on the day of the visit. 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 documented in this encounter [facility] note* Diagnosis B12 deficiency- Primary documented in this encounter [facility] note* Diagnosis ERRONEOUS ENCOUNTER--DISREGARD- Primary documented in this encounter [facility] note* Diagnosis 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 She has positive anti-YARITZA 65 antibodies at >250. She was having daily episodes of muscle spasms throughout her body. Historical Medications: octagam - anaphylactic reaction Flexeril - not effective Since her last visit, Roshni Lorenzo reports Review of Systems 10 other systems reviewed and are negative unless otherwise noted on scanned ROS form completed by the patient. 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 Orthostatic headache Patient had no falls in past year 07/05/2022 Patient had no falls in past year 06/06/2023 Pelvic congestion syndrome Positive YARITZA antibody SMAS (superior mesenteric artery syndrome) (HCC) Stiff person syndrome Past Surgical History: Procedure Laterality Date ENDOMETRIAL ABLATION 03/10/2015 ESOPHAGEAL DILATION 02/23/2015 HYSTERECTOMY 10/13/2017 NASAL ENDOSCOPY 05/20/2016 VENOGRAM INJECTION 10/08/2015 RENAL VENOGRAM Family History Problem Relation Age of Onset Diabetes Mother Heart disease Mother Allergies Father Pacemaker Father Atrial fibrillation Brother Allergies Brother Dementia Paternal Grandmother Social History Socioeconomic History Marital status: Spouse name: Not on file Number of children: Not on file Years of education: Not on file Highest education level: Not on file Occupational History Not on file Tobacco Use Smoking status: Every Day Packs/day: .5 Types: Cigarettes Smokeless tobacco: Current Tobacco comments: quit on off Vaping Use Vaping Use: Never used Substance and Sexual Activity Alcohol use: Never Drug use: Never Sexual activity: Not on file Other Topics Concern Not on file Social History Narrative Not on file Social Determinants of Health Financial Resource Strain: Not on file Food Insecurity: Not on file Transportation Needs: Not on file Physical Activity: Not on file Stress: Not on file Social Connections: Not on file Housing Stability: Not on file albuterol (PROVENTIL HFA; VENTOLIN HFA) 108 (90 Base) MCG/ACT inhaler albuterol (PROVENTIL) (5 mg/mL) 0.5% nebulizer solution Take 1 mL (5 mg total) by nebulization 4 times daily (every 6 hours) as needed for wheezing. amphetamine-dextroamphetamine (ADDERALL XR) 25 MG 24 hr capsule Take 1 capsule (25 mg total) by mouth every morning. amphetamine-dextroamphetamine (ADDERALL) 10 MG tablet Take 1 tablet (10 mg total) by mouth daily. atogepant (QULIPTA) 60 mg tablet Take 1 tablet (60 mg total) by mouth daily. Azelastine HCl 137 MCG/SPRAY nasal spray 2 sprays into each nostril 2 (two) times a day. baclofen (LIORESAL) 10 MG tablet TAKE 1 TABLET BY MOUTH THREE TIMES A DAY NEEDED FOR MUSCLE SPASM Breo Ellipta 200-25 MCG/ACT inhaler INHALE 1 PUFF BY MOUTH EVERY DAY cromolyn (GASTROCROM) 100 MG/5ML solution Take 5 mL (100 mg total) by mouth as needed. diphenhydrAMINE (BENADRYL) 25 mg capsule Take 1 capsule (25 mg total) by mouth 4 times daily (every 6 hours) as needed for itching. Dupixent 300 MG/2ML prefilled syringe EPINEPHrine 0.15 mg/0.3 mL IJ auto-injection Inject 0.3 mL (0.15 mg total) into the shoulder, thigh, or buttocks once as needed for allergic reaction. famotidine (PEPCID) 20 MG tablet Take 1 tablet (20 mg total) by mouth 2 (two) times a day. fexofenadine (JOSEHP) 180 MG tablet Take 1 tablet (180 mg total) by mouth 4 (four) times a day. Administer with water only; do not administer with fruit juices. fludrocortisone (FLORINEF) 0.05MG tablet Take 2 split tablet (0.1 mg total) by mouth daily. fluocinonide (LIDEX) 0.05 % cream APPLY TO AFFECTED AREAS TWICE DAILY FOR 2 WEEKS, BREAK FOR 1 WEEK, REPEAT NEEDED. gabapentin (NEURONTIN) 300 MG capsule Take 1 capsule (300 mg total) by mouth 3 (three) times a day. ibuprofen (MOTRIN) 200 MG tablet Take 1 tablet (200 mg total) by mouth 4 times daily (every 6 hours) as needed for mild pain. immune globulin, human, 10% in solution (GAMUNEX-C) IV Premix 200 mL (20 g total). metoPROLOL SUCCINATE (TOPROL-XL) 25 MG 24 hr tablet TAKE 2 TABLETS BY MOUTH EVERY DAY IN THE MORNING AND 1 TABLET EVERY EVENING montelukast (SINGULAIR) 10 MG tablet Take 1 tablet (10 mg total) by mouth nightly. OnabotulinumtoxinA (BOTOX IJ) 300 Units every 12 (twelve) weeks. ondansetron (ZOFRAN-ODT) 4 MG disintegrating tablet Take 1 tablet (4 mg total) by mouth 3 times daily (every 8 hours). Oxygen 2 L/min. Saturation Goal: % Equipment: Rate, Route: Humidification: Frequency: Duration of Need: pentoxifylline (TRENtal) 400 MG CR tablet Take 1 tablet (400 mg total) by mouth 3 (three) times a day with meals. proMETHAZINE (PHENERGAN) 25 MG tablet Take 1 tablet (25 mg total) by mouth as needed for nausea or vomiting. SUMAtriptan (IMITREX) 50 MG tablet TAKE 1 TABLET BY MOUTH ONCE NEEDED FOR MIGRAINE, MAY REPEAT IN 2 HOURS IF UNRESOLVED, MAX 4/24HRS triamcinolone (KENALOG) 0.1 % cream APPLY TWICE DAILY TO RASH ON THE LEGS FOR 2 WEEKS BREAK ONE WEEK THEN REPEAT NEEDED. Vitamin D3 (CHOLECALICEROL) 2000 units tablet Take 1 tablet (2,000 Units total) by mouth daily. Allergies Allergen Reactions Oranges Fever Egg-Derived Products Hives Apples and Oats [id number] [Alimentum] Unknown/Patient and Family Unable to Define Epinephrine Hives Other reaction(s): Unknown Other reaction(s): Unknown Iodinated Contrast Media Hives Other reaction(s): Unknown No Known Allergies Unknown/Patient and Family Unable to Define Insect Extract Itching Physical Exam There were no vitals filed for this visit. General Exam General: no apparent distress, cooperative, well developed, well nourished. NECK: Supple, full range of motion EXT: no clubbing, cyanosis, or edema Neurological Exam Mental Status Alert and oriented to person, place, time, and situation Cranial Nerves III, IV, : EOMI, VII: facial strength symmetric and strong bilaterally; speech - no dysarthria VIII: hearing right - NL and left- NL XI: symmetric shoulder shrug Motor There is no pronator drift of out-stretched arms. Muscle bulk is normal. Strength is full bilaterally. Tone is normal. Sensory Light touch - normal Cerebellar Finger to nose - normal bilaterally. Gait Normal stance and stride Assessment: Roshni Lorenzo is a 39 y.o. 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 For migraines, she will stop AIMOVIG and start Qulipta. We will order annual blood work. Plan: - [facility] at home IVIG infusion over 4 days per month - Continue baclofen 10mg 1 tab q day-TID PRN for spasms - Continue sumatriptan 50 mg prn - Continue exercising - Start vitamin B12 1000mcg/day. - Return to office in 6 months for follow-up Patient seen by and plan discussed with and approved by Dr. Huff. No LOS data to display During the day of the visit, time was spent including the following: Examining the patient Chart review in preparation for the visit Documenting in the patient record Reviewing Labs & Radiology Medication Reconciliation [facility] Additional Source Comments Care Teams (unrecognized sec tion and content) Aids Social Worker Relationship Specialty Start Date End Date Wesley Grover MD [address] [place] [address] [place] [id number] PCP - General Internal Medicine 07/23/21 Jarrett Huff MD [address] [place] [address] Physician Neurology 02/26/20 Jassi Oseguera [address] [place] [address] [id number] [place] [address] Physician Pulmonary Medicine 09/27/22 Corie Hester MD Psychiatrist 05/11/20 DO KIMBERLY Rooney: [facility] Consulting Provider Allergy 10/12/21 Aids Social Worker Relationship Specialty Start Date End Date Wesley Grover MD [address] [place] [address] [place] [address] PCP - General Internal Medicine 07/23/21 Jarrett Huff MD [address] [place] [address] Physician Neurology 02/26/20 Jassi Oseguera [id number] [place] [address] Physician Pulmonary Medicine 09/27/22 Corie Hester MD Psychiatrist 05/11/20 DO KIMBERLY Rooney: [facility] Provider Allergy 10/12/21 Aids Social Worker Relationship Specialty Start Date End Date Wesley Grover MD [address] [place] [address] [place] [address] PCP - General Internal Medicine 07/23/21 Jarrett Huff MD [address] [place] [address] Physician Neurology 02/26/20 Jassi Oseguera [address] [place], [place] [address]e [id number] [place] [address] Physician Pulmonary Medicine 09/27/22 Corie Hester MD Psychiatrist 05/11/20 DO KIMBERLY Rooney: [facility] Provider Allergy 10/12/21 Aids Social Worker Relationship Specialty Start Date End Date Wesley Grover MD [address] [place] [address] [place] [id number] PCP - General Internal Medicine 07/23/21 Jarrett Huff MD [address] [place] [address] Physician Neurology 02/26/20 Jassi Oseguera [address] [place] [address] [id number] [place] [address] Physician Pulmonary Medicine 09/27/22 Corie Hester MD Psychiatrist 05/11/20 DO KIMBERLY Rooney: [facility] Provider Allergy 10/12/21 Aids Social Worker Relationship Specialty Start Date End Date Wesley Grover MD [address] [place] [address] [place] [address] PCP - General Internal Medicine 07/23/21 Jarrett Huff MD [address] [place] [address] Physician Neurology 02/26/20 Jassi Oseguera [address] [place] [address] [id number] [place] [address] Physician Pulmonary Medicine 09/27/22 Corie Hester MD Psychiatrist 05/11/20 DO KIMBERLY Rooney: [facility] Provider Allergy 10/12/21 Aids Social Worker Relationship Specialty Start Date End Date Wesley Grover MD [address] [place] [address] Dr Patel [address] [place] [id number] PCP - General Internal Medicine 07/23/21 Jarrett Huff MD [address] [place] [address] Physician Neurology 02/26/20 Angelito Ruelas MD [address] [place] [id number] Consulting Provider Pulmonary Medicine 02/05/21 Corie Hester MD Psychiatrist 05/11/20 DO KIMBERLY Rooney: [facility] Consult[facility] Provider Allergy 10/12/21 Aids Social Worker Relationship Specialty Start Date End Date Wesley Grover MD [address] [place] [address] Dr Patel [facility] [address] [place] [id number] PCP - General Internal Medicine 07/23/21 Jarrett Huff MD [address] [place] [address] Physician Neurology 02/26/20 Angelito Ruelas MD [address] [place] [address] [id number] Consulting Provider Pulmonary Medicine 02/05/21 Corie Hester MD Psychiatrist 05/11/20 DO KIMBERLY Rooney: [facility] Provider Allergy 10/12/21 Aids Social Worker Relationship Specialty Start Date End Date Wesley Grover MD [address] [place] [address] [address] PCP - General Internal Medicine 07/23/21 Jarrett Huff MD [address] [place] [address] Physician Neurology 02/26/20 Jassi Oseguera [address] [place], [place] [address]e [id number] [place] [address] Physician Pulmonary Medicine 09/27/22 Corie Hester MD Psychiatrist 05/11/20 DO KIMBERLY Rooney: [facility] Provider Allergy 10/12/21 Aids Social Worker Relationship Specialty Start Date End Date Wesley Grover MD [address] [place] [address] [place] [address] [place] [address] PCP - General Internal Medicine 07/23/21 Jarertt Huff MD [address] [place] [address] Physician Neurology 02/26/20 Jassi Oseguera [id number] [place] [address] Physician Pulmonary Medicine 09/27/22 Corie Hester MD Psychiatrist 05/11/20 DO KIMBERLY Rooney: [facility] Consult[facility] Provider Allergy 10/12/21 Aids Social Worker Relationship Specialty Start Date End Date PoWesley MD [address] [facility] [place] [address] PCP - General Internal Medicine 07/23/21 Jarrett Huff MD [address] [place] [address] Physician Neurology 02/26/20 Jassi Oseguera [address] [place] [address] [id number] [place] [address] Physician Pulmonary Medicine 09/27/22 Corie Hester MD Psychiatrist 05/11/20 DO KIMBERLY Rooney: [facility] Provider Allergy 10/12/21 Aids Social Worker Relationship Specialty Start Date End Date Po, Wesley Clemens MD [address] [place] [address] [place] [address] PCP - General Internal Medicine 07/23/21 Jarrett Huff MD [address] [place] [address] Physician Neurology 02/26/20 Angelito Ruelas MD [address] [place] [address] Consulting Provider Pulmonary Medicine 02/05/21 Corie Hester MD Psychiatrist 05/11/20 DO KIMBERLY Rooney: [facility] Provider Allergy 10/12/21 Aids Social Worker Relationship Specialty Start Date End Date PoWesley MD [address] [facility] [place] [address] PCP - General Internal Medicine 07/23/21 Jarrett Huff MD [address] [place] [address] Physician Neurology 02/26/20 Jassi Oseguera [address] [place] [address] [id number] [place] [phone] Physician Pulmonary Medicine 09/27/22 Corie Hester MD Psychiatrist 05/11/20 DO KIMBERLY Rooney: [facility] Provider Allergy 10/12/21 Aids Social Worker Relationship Specialty Start Date End Date Wesley Grover MD [address] [place] [address] Dr Patel [address] [place] [address] PCP - General Internal Medicine 07/23/21 Jarrett Huff MD [address] [place] [address] Physician Neurology 02/26/20 Angelito Ruelas MD [address] [place] [address] Consulting Provider Pulmonary Medicine 02/05/21 Corie Hester MD Psychiatrist 05/11/20 DO KIMBERLY Rooney: [facility] Provider Allergy 10/12/21 Aids Social Worker Relationship Specialty Start Date End Date Wesley Grover MD [address] [place] [address] Dr Patel [facility] [address] [place], [place] [id number] PCP - General Internal Medicine 07/23/21 Jarrett Huff MD [address] [place] [address] Physician Neurology 02/26/20 Jassi Oseguera [id number] [place] [address] Physician Pulmonary Medicine 09/27/22 Corie Hester MD Psychiatrist 05/11/20 DO KIMBERLY Rooney: [facility] Provider Allergy 10/12/21 Aids Social Worker Relationship Specialty Start Date End Date Wesley Grover MD [address] [place] [address] [place] [id number] PCP - General Internal Medicine 07/23/21 Jarrett Huff MD [address] [place] [address] Physician Neurology 02/26/20 Jassi Oseguera [id number] [place] [address] Physician Pulmonary Medicine 09/27/22 Corie Hester MD Psychiatrist 05/11/20 DO KIMBERLY Rooney: [facility] Provider Allergy 10/12/21 Aids Social Worker Relationship Specialty Start Date End Date Wesley Grover MD [address] [place] [address] [place] [id number] PCP - General Internal Medicine 07/23/21 Jarrett Huff MD [address] [place] [address] Physician Neurology 02/26/20 Jassi Oseguera [id number] [place] [address] Physician Pulmonary Medicine 09/27/22 Corie Hester MD Psychiatrist 05/11/20 DO KIMBERLY Rooney: [facility] Provider Allergy 10/12/21 Aids Social Worker Relationship Specialty Start Date End Date Po, Wesley Clemens MD [address] [place] [address] [place] [id number] PCP - General Internal Medicine 07/23/21 Jarrett Huff MD [address] [place] [address] Physician Neurology 02/26/20 Angelito Ruelas MD [address] [place] [address] Consulting Provider Pulmonary Medicine 02/05/21 Corie Hester MD Psychiatrist 05/11/20 DO KIMBERLY Rooney: [facility] Provider Allergy 10/12/21 Aids Social Worker Relationship Specialty Start Date End Date Po, Wesley Clemens MD [address] [place] [address] [place] [address] PCP - General Internal Medicine 07/23/21 Jarrett Huff MD [address] [place] [address] Physician Neurology 02/26/20 Jassi Oseguera [address] [place] [address] [id number] [place] [phone] Physician Pulmonary Medicine 09/27/22 Corie Hester MD Psychiatrist 05/11/20 DO KIMBERLY Rooney: [facility] Consult[facility] Provider Allergy 12/7/21 Aids Social Worker Relationship Specialty Start Date End Date Po, Lorenver O, MD [address] [place] [address] Dr Patel [address] [place] [address] PCP - General Internal Medicine 07/23/21 Jarrett Huff MD [address] [facility] [address] [place] [address] Physician Neurology 02/26/20 Jassi Oseguera [id number] [place] [address] Physician Pulmonary Medicine 09/27/22 Corie Hester MD Psychiatrist 05/11/20 DO KIMBERLY Rooney: [facility] Consult[facility] Provider Allergy 10/12/21 This clinical document has been generated using [employer] software that has been certified by the Office of the National Coordinator for Health Information Technology (ONC 15.99.04.3023.Diam.31.00.0.012482) and the National Committee for [employer] (NCQA, as an eMeasure certified technology). FOR RECORDS PERTAINING TO PATIENTS WHO ARE OR HAVE BEEN ENROLLED IN A CHEMICAL DEPENDENCY/SUBSTANCEABUSE PROGRAM, SOME INFORMATION MAY BE OMITTED. This clinical summary was aggregated from multiple sources. Caution should be exercised in using it in the provision of clinical care. This summary normalizes information from multiple sources, and as a consequence, information in this document may materially change the coding, format and clinical context of patient data. In addition, data may be omitted in some cases. CLINICAL DECISIONS SHOULD BE BASED ON THE PRIMARY CLINICAL RECORDS. [employer] provides no warranty or guarantee of the accuracy or completeness of information in this document.The following information is based on time limited clinical information
--- OUTSIDE RECORDS SUMMARY | 2024-11-11 17:03 | XMS_ITS ---
Author Name [facility] Organization Unknown History of Medication Use Medication Directions Dispensed Refills Start Date End Date Status ibuprofen (MOTRIN) 200 MG tablet Take 1 tablet (200 mg total) by mouth 4 times daily (every 6 hours) as needed for mild pain. 2 active famotidine (PEPCID) 20 MG tablet Take 1 tablet (20 mg total) by mouth 2 (two) times a day. 2 active erenumab-aooe (AIMOVIG) 140 MG/ML Solution Auto-injector injection Inject 1 pen(s) (140 mg total) under the skin every 30 days (once a month). 4 aborted fluocinonide (LIDEX) 0.05 % cream APPLY TO AFFECTED AREAS TWICE DAILY FOR 2 WEEKS, BREAK FOR 1 WEEK, REPEAT NEEDED. 3 active metoPROLOL TARTRATE (LOPRESSOR) 25 MG tablet Take by mouth See Admin Instructions. TAKE 2 TABLETS BY MOUTH EVERY MORNING AND TAKE 1 TABLET EVERY EVENING 2 aborted albuterol (PROVENTIL) (5 mg/mL) 0.5% nebulizer solution Take 1 vial by nebulization 4 times daily (every 6 hours) as needed for wheezing. 2 active pentoxifylline (TRENtal) 400 MG CR tablet Take 1 tablet (400 mg total) by mouth 3 (three) times a day with meals. 2 active SUMAtriptan (IMITREX) 50 MG tablet Take 1 tablet (50 mg total) by mouth once as needed for migraine. May repeat in 2 hours if unresolved. Do not exceed 200 mg in 24 hours. 2 aborted amphetamine-dextroamphe tamine (ADDERALL XR) 25 MG 24 hr capsule Take 1 capsule (25 mg total) by mouth every morning. 2 active OnabotulinumtoxinA (BOTOX IJ) 300 Units every 12 (twelve) weeks. 3 active immune globulin, human, 10% in solution (GAMUNEX-C) IV Premix 200 mL (20 g total). 2 active Azelastine HCl 137 MCG/SPRAY nasal spray 2 sprays into each nostril 2 (two) times a day. 2 active famotidine (PEPCID) 20 MG tablet Take 1 tablet by mouth 2 (two) times a day. 2 active metoPROLOL SUCCINATE (TOPROL-XL) 25 MG 24 hr tablet TAKE 2 TABLETS BY MOUTH EVERY DAY IN THE MORNING AND 1 TABLET EVERY EVENING 3 active Breo Ellipta 100-25 MCG/INH inhaler Inhale 1-2 puffs as needed. 2 aborted triamcinolone (KENALOG) 0.1 % cream APPLY TWICE DAILY TO RASH ON THE LEGS FOR 2 WEEKS BREAK ONE WEEK THEN REPEAT NEEDED. 3 active fludrocortisone (FLORINEF) 0.05MG tablet Take 2 split tablet (0.1 mg total) by mouth daily. 2 active ondansetron (ZOFRAN-ODT) 4 MG disintegrating tablet Take 1 tablet (4 mg total) by mouth 3 times daily (every 8 hours). 3 active Breo Ellipta 100-25 MCG/INH inhaler Inhale 1 puff as needed. 2 active Breo Ellipta 200-25 MCG/ACT inhaler INHALE 1 PUFF BY MOUTH EVERY DAY 3 active montelukast (SINGULAIR) 10 MG tablet Take 1 tablet (10 mg total) by mouth nightly. 2 active albuterol (PROVENTIL) (5 mg/mL) 0.5% nebulizer solution Take 1 mL (5 mg total) by nebulization 4 times daily (every 6 hours) as needed for wheezing. 2 active atogepant (QULIPTA) 60 mg tablet Take 1 tablet (60 mg total) by mouth daily. 4 active Vitamin D3 (CHOLECALICEROL) 2000 units tablet Take 1 tablet (2,000 Units total) by mouth daily. 2 active onabotulinum Toxin Type A (BOTOX) 200 units injection 300 Units 2 completed albuterol (PROVENTIL HFA; VENTOLIN HFA) 108 (90 Base) MCG/ACT inhaler 2 active EPINEPHrine 0.15 mg/0.3 mL IJ auto-injection Inject 0.3 mL (0.15 mg total) into the shoulder, thigh, or buttocks once as needed for allergic reaction. 2 active proMETHAZINE (PHENERGAN) 25 MG tablet Take 1 tablet (25 mg total) by mouth as needed for nausea or vomiting. 2 active Dupixent 300 MG/2ML prefilled syringe 4 active gabapentin (NEURONTIN) 300 MG capsule Take 1 capsule (300 mg total) by mouth 3 (three) times a day. 2 active amphetamine-dextroamphe tamine (ADDERALL) 10 MG tablet Take 1 tablet (10 mg total) by mouth daily. 2 active SUMAtriptan (IMITREX) 50 MG tablet TAKE 1 TABLET BY MOUTH ONCE NEEDED FOR MIGRAINE, MAY REPEAT IN 2 HOURS IF UNRESOLVED, MAX 4/24HRS 3 active fexofenadine (JOSEPH) 180 MG tablet Take 1 tablet (180 mg total) by mouth 4 (four) times a day. Administer with water only; do not administer with fruit juices. 2 active baclofen (LIORESAL) 10 MG tablet TAKE 1 TABLET BY MOUTH THREE TIMES A DAY NEEDED FOR MUSCLE SPASM 2 active cromolyn (GASTROCROM) 100 MG/5ML solution Take 5 mL (100 mg total) by mouth as needed. 2 active rimegepant (Nurtec) 75 mg disintegrating tablet Take 1 tablet (75 mg total) by mouth every other day. Maximum: 75 mg/24 hours 3 active diphenhydrAMINE (BENADRYL) 25 mg capsule Take 1 capsule (25 mg total) by mouth 4 times daily (every 6 hours) as needed for itching. 2 active ondansetron (ZOFRAN) 4 MG tablet Take 1 tablet (4 mg total) by mouth 3 times daily (every 8 hours) as needed for nausea or vomiting. 2 aborted erenumab-aooe (AIMOVIG) 140 MG/ML Solution Auto-injector injection Inject 1 pen(s) (140 mg total) under the skin every 30 days (once a month). 3 active Oxygen 2 L/min. 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-09-27 [facility]Act [facility] Other dystonia active 2020-05-[address] Attention deficit disorder with hyperactivity active 2020-08-10 ProblemAct [facility] Other chronic pain active 2020-08-10 Problem[facility] Disorder of autonomic nervous system active 2022-09-27 [facility]Act [facility] Pelvic congestion syndrome active 2022-09-27 ProblemAct [facility] 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 ProblemAct [facility] Asthma active 2022-09-27 ProblemAct [facility] Sleep-related hypoventilation active 2022-09-27 ProblemAct [facility] Postural orthostatic tachycardia syndrome active 2022-09-27 ProblemAct [facility] Obstructive sleep apnea active 2020-08-10 ProblemAct [facility] Ventricular tachycardia active 2022-09-27 ProblemAct [facility] Alopecia active 2020-08-10 ProblemAct [facility] Crohn's disease active 2022-09-27 ProblemAct [facility] Other mast cell activation disorder active 2019-11-25 ProblemAct [facility] Abdominal pain active 2020-08-[address] Migraine active 2019-11-25 ProblemAct [facility] Superior mesenteric artery syndrome active 2022-09-27 ProblemAct [facility] Seasonal allergic rhinitis active 2019-11-25 ProblemAct [facility]
--- OUTSIDE RECORDS SUMMARY | 2024-11-11 17:03 | XMS_ITS | Continuity of Care Document ---
Author Organization [facility] Address [address] [place] [address] Phone Care Team Providers Care Mds Rn Name Role Phone Iliana Amado Unavailable Unavailable Allergies, Adverse Reactions, Alerts Substance Reaction Status Criticality No Known Allergies Active No Inform ation Medications Medication Instructions Dosage Effective Dates (start - stop) Status Comments albuterol sulfate HFA 90 mcg/actuation aerosol inhaler inhale 2 puff by inhalation route every 4 - 6 hours as needed - Active Adderall XR 25 mg capsule,extended release take 1 capsule by oral route every day in the morning upon awakening 25 MG - Active Nasonex 50 mcg/actuation [place] spray 2 spray by intranasal route every day in each nostril - Active OXYGEN - Active promethazine 25 mg tablet take 1 tablet by oral route every 12 - 24 hours as needed 25 MG - Active Procedures Procedure Date PREV VISIT, NEW, AGE 18-39 Advance Directives Directive Yes / No Effective Date File Name No Information Encounters Encounter Description Practice Location Reason(s) For Visit Diagnoses Date Provider Providers Copied on Encounter [facility], [address], [place], [place], [id number], [place] tel:[phone] No Location No Information [address] [place], [address], [place]. tel:[phone] PREV VISIT, NEW, AGE 18-39 [facility], [address], [place], [place], [id number], [place] tel:[phone] [facility] preventive exam (chief complaint) No Information No Information Family History Family Member Type Diagnosis Age At Onset Mother Problem (finding) Maternal histo ry of diabetes mellitus Mother Problem (finding) stroke Maternal aunt Problem (finding) malignant neoplasm of liver Maternal aunt Problem (finding) malignant neoplasm of thyroid Paternal grandfather Problem (finding) Cancer, unknown Payers Payer name Insurance type Covered green party ID Authoriza tion(s) No Information Social History Type Description Quantity Date Captured Comments Sex Female Smoking Status No Information Chief Complaint And Reason For Visit No Information Reason For Referral Reason For Referral No Information Plan Of Treatment Date Type Action Status Future Order: Lab Order HEMOGLOB IN A1C ([id number]), Appointment on: Ordered Future Order: Lab Order TSH ([id number]), Appointment on: Ordered Future Order: Lab Order CBC with Diff ([id number]), Appointment on: Ordered Future Order: Lab Order LIPID PA JANIYA ([id number]), Appointment on: Ordered Future Order: Lab Order Comp Met a Panel ([id number]), Appointment on: Ordered History Of Present Illness Encounter Date Complaint History Of Prese nt Illness preventive exam The patient stat es she uses vasectomy for control. Her menses is absent. Negative for: breast discharge, breast lump(s) and breast pain. Positive for: breast self exam. Pertinent negatives include vaginal discharge and vaginal itching. Diet No Diet. The patient does use tobacco. She has been exposed to passive smoke. She does not drink alcohol. Functional Status Date Functional Assessmen t No Information Instructions Date Instruction Additional Infor mation No Information Assessments Type Assessment Date No Information Patient Care Teams Name Effective Dates (start - stop) Status Members No Information
== END 2024-11-11 15:12 | disposition home or self-care (01) ==
PROVIDERS: PCP Internal Medicine; Visit Provider Internal Medicine Pulmonary Disease
DX: J45.909 Unspecified asthma, uncomplicated (principal); G47.34 Idiopathic sleep related nonobstructive alveolar hypoventilation
CPT/HCPCS: 99214

== ENCOUNTER → 2024-11-11 15:01 | Outpatient (BNVA) | payer OTHER, SELFPAY | PROVIDERS: PCP Internal Medicine; Visit Provider Internal Medicine Pulmonary Disease | DX: J45.909 Unspecified asthma, uncomplicated (principal); G47.34 Idiopathic sleep related nonobstructive alveolar hypoventilation | CPT/HCPCS: 99212 ==

== ENCOUNTER 2024-12-31 13:29 | Outpatient (AMB) | payer OTHER, SELFPAY ==
[2024-12-31 13:36] VITALS: BP 98/62; PULSE 85; O2SAT 96; BMI 19.2
--- NOTE | 2024-12-31 13:36 | A.OFFPC_ITS ---
Vital Signs 12/31/24 13:36 Height 5 ft 4 in Weight 112 lb BMI 19.2 BP 98/62 Blood Pressure Location Lt brachial Position Sitting Pulse 85 Pulse Source Pulse Oximeter Pulse Oximetry (%) 96 Oxygen Delivery Method Room Air Intake Visit Reasons: 6 month follow up Allergies egg Allergy (Severe, Verified 12/31/24 13:36) Hives insect venom Allergy (Severe, Verified 12/31/24 13:36) Rash Iodinated Contrast Media Allergy (Severe, Verified 12/31/24 13:36) Hives melon Allergy (Severe, Verified 12/31/24 13:36) Hives orange Allergy (Severe, Verified 12/31/24 13:36) Hives pear Allergy (Severe, Verified 12/31/24 13:36) Hives immune globulin,alpha (IgA) greater than 50 mcg/mL [From Octagam] Allergy (Intermediate, Verified 12/31/24 13:36) Anaphylaxis immune globulin,gamma (IgG) human [From Octagam] Allergy (Intermediate, Verified 12/31/24 13:36) Anaphylaxis maltose [From Octagam] Allergy (Intermediate, Verified 12/31/24 13:36) Anaphylaxis adhesive tape Allergy (Mild, Verified 12/31/24 13:36) Rash Inhaled Anesthetics (Halogen Based) Allergy (Mild, Verified 12/31/24 13:36) 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 Medication List - Last Reconciled 12/31/24 by Wesley Grover, albuterol sulfate 5 mg inhalation Q4H PRN albuterol sulfate 90 mcg/actuation 2 puffs inhalation Q4-6H PRN azelastine 2 sprays intranasal BID 90 days baclofen 10 mg PO TID cholecalciferol (vitamin D3) 50 mcg PO DAILY dextroamphetamine-amphetamine 10 mg 1 tab PO DAILY dextroamphetamine-amphetamine 25 mg ER 1 cap PO QAM diphenhydramine HCl (Benadryl) 50 mg PO ONCE dupilumab (Dupixent) addiction counselor epinephrine 0.3 mg IM Q10M PRN fexofenadine 180 mg PO QID PRN fludrocortisone 0.1 mg PO DAILY fluocinonide 0.05% 1 appl topical BID fluticasone furoate-vilanterol 200-25 mcg/dose (Breo Ellipta) 1 ea PO DAILY immune globul G-gly-IgA avg 46 20 gram/200 mL (10 %) (Gamunex-C) NEUROLOGY Dr. Jones metoprolol succinate ER Take 2 tablets of 25 mg in the morning and 1 tablet in the evening orally daily; 90 days montelukast 10 mg PO BEDTIME 90 days ondansetron 4 mg PO Q8H 90 days Oxygen Home Use As directed sodium chloride 0.65% (Saline Nasal Mist) 2 sprays intranasal QID PRN sumatriptan succinate 50 mg PO Q2-4H PRN triamcinolone acetonide 0.5% topical DAILY Tobacco use date assessed: 12/31/24 Dental Screening Dental Screen Date: 12/31/24 Did you have a dental visit in the last 12 months?: Yes Did you have a dental problem in the last 6 months where you did not have access to dental care?: No Was dental information given to patient?: Patient has dentist [facility] Medical History (Updated 12/31/24 @ 13:57 by Wesley Grover MD) Mild obstructive sleep apnea Raynauds disease Peripheral neuropathy Pelvic floor dysfunction Cardiomyopathy Occipital neuralgia Bacterial overgrowth syndrome Irritable bowel syndrome 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 Brother Afib Paternal Grandfather Colon cancer Maternal Aunt Liver cancer Paternal Aunt Sarcoidosis Other Family history of autoimmune disorder Social History (Updated 06/28/24 @ 10:43 by Wesley Grover MD) Housing: Apartment Alcohol intake: never Patient Tobacco Use Status: Current everyday Tobacco user Tobacco use type: Cigarette Cigarette Packs Per Day: 0.5 Cigarettes Per Day: 2 Years Smoked: twice amonth Packs Per Year: 0 Packs per year/per ci.00 e-Cigarette/Vaping Use: Never Used Second Hand Smoke Exposure: Yes service: No Current occupational status: disabled Cognitive needs: No Hearing needs: No Vision needs: Yes Questionnaire PHQ-9 Over the last 2 weeks, how often have you been bothered by any of the following problems? 1. Little interest or pleasure in doing things: not at all 2. Feeling down, depressed, or hopeless: not at all 3. Trouble falling or staying asleep, or sleeping too much: not at all 4. Feeling tired or having little energy: not at all 5. Poor appetite or overeating: not at all 6. Feeling bad about yourself - or that you are a failure or have let yourself or your family down: not at all 7. Trouble concentrating on things, such as reading the newspaper or watching television: not at all 8. Moving or speaking so slowly that other people could have noticed. Or the opposite - being so fidgety or restless that you have been moving around a lot more than usual: not at all 9. Thoughts that you would be better off or of hurting yourself in some way: not at all Total score: 0 Depression Screening Interpretation: Negative Depression Screening Done: Yes Source: Developed by Drs. Raad Johnson, Clarissa Cabrera, Jerry Cristobal and colleagues, with an educational maryse from [employer]. Thrive Questionnaire Date Thrive assessed: 12/31/24 I am a: Patient What is your living situation today?: I have a steady place to live Within the past 12 months, did the food you bought not last and you didn't have the money to get more?: Never true Within the past 12 months, did you worry whether your food would run out before you got money to buy more?: Never true Do you have trouble paying for medicines?: No Do you have trouble getting transportation to medical appointments?: No Do you have trouble paying your heating and electricity bill?: No Do you have trouble taking care of your child, family member or friend?: No Do you have trouble with day-to-day activities such as bathing, preparing meals, shopping, managing finances, etc.?: No Are you currently unemployed and looking for a job?: No Are you interested in more education?: No Please select the resources that you would like help with: None Currently or been in a relationship where the following occur: No concerns reported THRIVE Score: 0 AUDIT C Alcohol Use Questionnaire (AUDIT-C) 1. How often do you have a drink containing alcohol?: Never 3. How often do you have six or more drinks on one occasion?: Never Total Score: 0 YARITZA-7 AMB Questionnaire YARITZA-7 Date YARITZA - 7 assessed: 12/31/24 Feeling nervous, anxious, or on edge: 0 = Not at all Not being able to stop or control worryin = Not at all Worrying too much about different things: 0 = Not at all Trouble relaxin = Not at all Being so restless that it is hard to sit still: 0 = Not at all Becoming easily annoyed or irritable: 0 = Not at all Feeling afraid as if something awful might happen: 0 = Not at all Total YARITZA-7 score (0-4 normal; 5-9 mild; 10-14 moderate; 15-21 severe): 0 Source: Developed by Drs. Raad Johnson, Clarissa Cabrera, Jerry Cristobal and colleagues, with an educational maryse from [employer]. Physical exam (Primary Care) Vital Signs: Last Vital Signs Pulse 85 12/31/24 13:36 BP 98/62 12/31/24 13:36 Pulse Ox 96 12/31/24 13:36 Oxygen Delivery Method Room Air 12/31/24 13:36 BMI result Body Mass Index 19.2 Tobacco/Smoking Status: Tobacco use Status Tobacco use date assessed 12/31/24 12/31/24 13:41 Patient Tobacco Use Status Current everyday Tobacco 12/31/24 13:41 Tobacco use type Cigarette 12/31/24 13:41 e-Cigarette/Vaping Use Never Used 12/31/24 13:41 PHQ-9: PHQ-9 Score PHQ-9: Total score 0 12/31/24 13:51 Depression Screening Interpretation: Negative Thrive Assessment: Date of Thrive Assessment Date Thrive assessed 12/31/24 12/31/24 13:41 Currently or been in a relationship where the following occur: No concerns reported Const General: alert; No acute distress Eyes Conjunctivae: conjunctivae normal Resp Auscultation: clear to auscultation bilaterally Cardio Rate: regular rate Rhythm: regular rhythm GI Inspection: Yes normal to inspection Extrem General: Yes normal to inspection and No edema Coding Level of Care Code Est Pt Level 4 (23757) Diagnoses Tobacco abuse Z72.0 Asthma J45.909 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 The patient has a documented history of Postural Orthostatic Tachycardia Syndrome, Generalized Anxiety Disorder, and Esophageal Stricture, with ongoing challenges related to Stiff Person Syndrome. She was last evaluated in June 2024, where her routine physical examination and mammogram in July 2024 were normal. Her asthma, which has an allergic component, was last addressed in November. She continues on Breo and albuterol for management and receives subcutaneous immunotherapy due to allergic rhinitis under the care of an addiction counselor. Additionally, the patient is managed for Idiopathic Sleep-Related Nonobstructive Hypoventilation and has been prescribed oxygen overnight. 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 She is on H1/H2 antagonists and receives IVIG infusions every four weeks from a neuromuscular specialist, coupled with Dupixent biweekly from an addiction counselor. She mentioned stopping Cromolyn due to a decision made with an contract law specialist. The patient?s recent systemic profiles, including blood counts, electrolytes, renal and liver panels, cholesterol, and vitamin D levels, were normal as per her July blood work. She has consistently been advised to discontinue smoking to aid her asthma, which she successfully stopped in late September. Her current medication regimen includes montelukast, azelastine, and metoprolol to manage her symptoms, alongside Benadryl as a premedication with IVIG. Plan - Reinforce smoking cessation advice to prevent exacerbation of asthma and enhance overall health. - Continue asthma management with Breo and albuterol, with emphasis on correct administration techniques, such as rinsing the mouth post-inhalation to prevent oral adverse effects. - Maintain subcutaneous immunotherapy and Dupixent administration as per contract law specialist's guidelines for allergic rhinitis and idiopathic urticaria management. - Continue current dosage of metoprolol for cardiovascular stability in coordination with cardiology. - Bespoke management of idiopathic sleep-related hypoventilation with overnight oxygen therapy. - Maintain frequent follow-ups with neuromuscular and allergy specialists for ongoing management of mast cell activation disorder and IVIG therapy. - Patient education regarding the importance of medication adherence and lifestyle modifications to holistically manage chronic conditions. - Monitor and evaluate bloodwork systematically every few months to ensure biochemical stability. Patient was informed and verbally consented to the use of an ambient scribe for clinic note documentation during this visit.
--- OUTSIDE RECORDS SUMMARY | 2024-12-31 16:36 | XMS_ITS | Encounter Summary ---
Author Organization [facility] Address [address] [place] [address] Care Team Providers Care Lens Hardener Name Role Phone Jarrett Huff MD Unavailable [phone] Wesley Grover MD Primary Care Provider [phone] Jassi Oseguera Unavailable Encounter Details Date Type Department Care Team (Late st Contact Info) Description 09/26/2024 Scanned Document [facility] [address] [address] Neurology, Scan Social History Tobacco Use Types Packs/Day Years Used Date Smoking Tobacco: Every Day Cigarettes Smokeless Tobacco: Current Comments:quit on off Alcohol Use Standard Drinks/Week Comments Never 0 (1 standard drink = 0.6 oz pur e alcohol) AUDIT-C Answer Date Recorded Frequency of Alcohol Consumption Never 06/10/2019 Average Number of Drinks Not on file 019 Frequency of Binge Drinking Not on file 03/2019 PHQ-2 Answer Date Recorded PHQ-2 Total Score 1 06/18/2024 Sex and Gender Information Value Date Recorded Sex Assigned at Female 06/18/2024 12:16 PM EDT Gender Identity Female 06/18/2024 12:16 PM EDT Sexual Orientation Not on file documented as of this encounter Plan of Treatment Upcoming Encounters Date Type Department Care Team (Late st Contact Info) Description 01/23/2025 11:20 AM EDT Office Visit [facility] [address] [address] Jose Angel Bishop APRN [address] [address] documented as of this encounter Visit Diagnoses Not on filedocumented in this encounter Care Teams Lens Hardener Relationship Specialty Start Date End Date Wesley Grover MD [address] [place] [address] [address] [place] [address] PCP - General Internal Medicine 07/23/21 Jarrett Huff MD [address] [address] Physician Neurology 02/26/20 Jassi Oseguera [address] [facility] [address] [place] [address] Physician Pulmonary Medicine 09/27/22 Pricilla Hester MD Psychiatrist 05/11/20 DO KIMBERLY Rooney: [facility] Consult[facility] Provider Allergy 10/12/21 documented as of this encounter
--- OUTSIDE RECORDS SUMMARY | 2024-12-31 16:36 | XMS_ITS | Encounter Summary ---
Author Organization [facility] Address [address] [place] [address] Care Team Providers Care Ultrasonic Tester Name Role Phone Nathanael Alfredo MD Primary Care Provider + [phone] Jarrett Huff MD Unavailable [phone] Tash Enrique Unavailable + [phone] Angelito Ruelas MD Unavailable + [phone] Wesley Grover MD Primary Care Provider [phone] Jassi Oseguera Unavailable Encounter Details Date Type Department Care Team (Late st Contact Info) Description 08/08/2019 Scanned Document [facility] Neurology [address] [phone] Jarrett Huff MD [address] [place] [address] [address] [place] [address] Social History Tobacco Use Types Packs/Day Years Used Date Smoking Tobacco: Every Day Cigarettes Smokeless Tobacco: Never Comments:quit on off Alcohol Use Standard Drinks/Week Comments Never 0 (1 standard drink = 0.6 oz pur e alcohol) AUDIT-C Answer Date Recorded Frequency of Alcohol Consumption Never 06/10/2019 Average Number of Drinks Not on file 019 Frequency of Binge Drinking Not on file 03/2019 Sex and Gender Information Value Date Recorded Sex Assigned at Female 06/18/2024 12:16 PM EDT Gender Identity Female 06/18/2024 12:16 PM EDT Sexual Orientation Not on file documented as of this encounter Plan of Treatment Upcoming Encounters Date Type Department Care Team (Late st Contact Info) Description 01/23/2025 11:20 AM EDT Office Visit [facility] Neurology [place] [address] [phone] Jose Angel Bishop, SIEVE GRADER TENDER [address] [address] documented as of this encounter Visit Diagnoses Not on filedocumented in this encounter Care Teams Ultrasonic Tester Relationship Specialty Start Date End Date Nathanael Alfredo MD [address] [place] [address] PCP - General Internal Medicine 03/06/19 07/22/21 Wesley Grover MD [address] [place] [address] PCP - General Internal Medicine 07/23/21 Jarrett Huff MD [address] [place] [address] Physician Neurology 02/26/20 Tash Enrique PA [address] [address] Consulting Provider Neurology 02/26/20 10/11/21 Angelito Ruelas MD [address] [place] [address] [id number] Consulting Provider Pulmonary Medicine 02/05/21 Jassi Oseguera [address] [place] [address] [address] [place] [address] Physician Pulmonary Medicine 09/27/22 Pricilla Hester MD Psychiatrist 05/11/20 DO KIMBERLY Rooney: [facility] Consulting Provider Allergy 10/12/21 documented as of this encounter
--- OUTSIDE RECORDS SUMMARY | 2024-12-31 16:36 | XMS_ITS | Encounter Summary ---
Author Organization [facility] Address [address] [place] [address] Care Team Providers Care Mobile Lounge Driver Or Operator Name Role Phone Nathanael Alfredo MD Primary Care Provider + [phone] Jarrett Huff MD Unavailable [phone] Tash Enrique Unavailable + [phone] Angelito Ruelas MD Unavailable [phone] Wesley Grover MD Primary Care Provider [phone] Jassi Oseguera Unavailable Encounter Details Date Type Department Care Team (Late st Contact Info) Description 06/07/2019 Scanned Document [facility] Neurology [address] [phone] Jarrett Huff MD [address] [place] [address] [place] [phone] Social History Tobacco Use Types Packs/Day Years Used Date Smoking Tobacco: Never Assessed AUDIT-C Answer Date Recorded Frequency of Alcohol [...] Description 01/23/2025 11:20 AM EDT Office Visit [facility] Neurology [place] [address] [phone] Edna Jose Angelavtar Matthews APRN 280 [facility] [address] [place] [address] documented as of this encounter Visit Diagnoses Not on filedocumented in this encounter Care Teams Mobile Lounge Driver Or Operator Relationship Specialty Start Date End Date Nathanael Alfredo MD [address] [place] [address] PCP - General Internal Medicine 03/06/19 07/22/21 Wesley Grover MD [address] [place] [address] PCP - General Internal Medicine 07/23/21 Jarrett Huff MD [address] [address] Physician Neurology 02/26/20 Tash Enrique PA [address] [address] Consulting Provider Neurology 02/26/20 10/11/21 Angelito Ruelas MD [address] [place] [address] Consulting Provider Pulmonary Medicine 02/05/21 Jassi Oseguera [address] [place] [address] [address] [place] [address] Physician Pulmonary Medicine 09/27/22 Pricilla Hester MD Psychiatrist 05/11/20 DO KIMBERLY Rooney: [facility] Consulting Provider Allergy 10/12/21 documented as of this encounter
--- OUTSIDE RECORDS SUMMARY | 2024-12-31 16:36 | XMS_ITS | Continuity of Care Document ---
Author Organization [facility] Address [address] [facility] [address] [place] [address] Phone Care Team Providers Care Market Stall Vendor Name Role Phone Iliana Amado Unavailable Unavailable [...] 25 MG - Active Nasonex 50 mcg/actuation [place] spray 2 spray by intranasal route every [...] Diagnoses Date Provider Providers Copied on Encounter [facility], [address] [facility] [address], [place], [place], [id number], [place] tel:[phone] No Location No Information 0 7 Katerina Barrientos. [address] [place], [address], [place]. tel:[phone] PREV VISIT, NEW, AGE 18-39 [facility], [address] [facility] [address], [place], [place], [id number], [place] tel:[phone] [facility] preventive exam (chief complaint) No Information No Information Family History Family Member Type Diagnosis Age At Onset Mother Problem (finding) Maternal histo ry of diabetes mellitus Mother Problem (finding) stroke Maternal aunt Problem (finding) malignant neoplasm of liver Maternal aunt Problem (finding) malignant neoplasm of thyroid Paternal grandfather Problem (finding) Cancer, unknown Payers Payer name Insurance type Covered republican ID Authoriza tion(s) No Information Social History Type Description Quantity Date Captured Comments Sex Female Smoking Status No Information Chief Complaint And Reason For Visit No Information Reason For Referral Reason For Referral No Information Plan Of Treatment Date Type Action Status Future Order: Lab Order HEMOGLOB IN A1C ([id number]), Appointment on: Ordered Future Order: Lab Order TSH ([id number]), Appointment on: Ordered Future Order: Lab Order CBC with Diff ([id number]), Appointment on: Ordered Future Order: Lab Order LIPID PA JANIYA ([id number]), Appointment on: Ordered Future Order: Lab Order Comp Met a Panel ([id number]), Appointment on: Ordered History Of Present Illness [...]
--- OUTSIDE RECORDS SUMMARY | 2024-12-31 16:36 | XMS_ITS | Clinical Summary ---
Author Organization [facility] Address [address] [place] [address] Care Team Providers Care Environmental Services Attendant Name Role Phone Jarrett Huff MD Unavailable [phone] Wesley Grover MD Primary Care Provider [phone] Jassi Oseguera Unavailable Allergies Active Allergy Reactions Criticality Noted Date Comments Egg-Derived Products Hives Medium 06/10/2019 Apples and Oats Alimentum Unknown/Patient and Family Unable to Define Medium 12/22/2020 Epinephrine Hives Medium 06/10/2019 Other reaction(s): Unknown Other reaction(s): Unknown Insect Extract Itching Low 06/10/2019 Iodinated Contrast Media Hives Medium 06/10/2019 Other reaction(s): Unknown No Known Allergies Unknown/Patient and Family Unable to Define Medium 01/04/2022 Oranges Fever High 06/10/2019 Medications Medication Sig Dispensed Refills Start Date End Date Status Oxygen 2 L/min. Saturation Goal: % Equipment: Rate, Route: Humidification: Frequency: Duration of Need: Active fludrocortisone (FLORINEF) 0.05MG tablet Take 2 split tablet (0.1 mg total) by mouth daily. Active gabapentin (NEURONTIN) 300 MG capsule Take 1 capsule (300 mg total) by mouth 3 (three) times a day. Active amphetamine-dextro amphetamine (ADDERALL XR) 25 MG 24 hr capsule Take 1 capsule (25 mg total) by mouth every morning. Active EPINEPHrine 0.15 mg/0.3 mL IJ auto-injection Inject 0.3 mL (0.15 mg total) into the shoulder, thigh, or buttocks once as needed for allergic reaction. Active fexofenadine (JOSEPH) 180 MG tablet Take 1 tablet (180 mg total) by mouth 4 (four) times a day. Administer with water only; do not administer with fruit juices. Active ibuprofen (MOTRIN) 200 MG tablet Take 1 tablet (200 mg total) by mouth 4 times daily (every 6 hours) as needed for mild pain. Active Vitamin D3 (CHOLECALICEROL) 2000 units tablet Take 1 tablet (2,000 Units total) by mouth daily. Active diphenhydrAMINE (BENADRYL) 25 mg capsule Take 1 capsule (25 mg total) by mouth 4 times daily (every 6 hours) as needed for itching. Active pentoxifylline (TRENtal) 400 MG CR tablet Take 1 tablet (400 mg total) by mouth 3 (three) times a day with meals. Active albuterol (PROVENTIL) (5 mg/mL) 0.5% nebulizer solution Take 1 mL (5 mg total) by nebulization 4 times daily (every 6 hours) as needed for wheezing. Active proMETHAZINE (PHENERGAN) 25 MG tablet Take 1 tablet (25 mg total) by mouth as needed for nausea or vomiting. Active montelukast (SINGULAIR) 10 MG tablet Take 1 tablet (10 mg total) by mouth nightly. Active amphetamine-dextro amphetamine (ADDERALL) 10 MG tablet Take 1 tablet (10 mg total) by mouth daily. 9 Active immune globulin, human, 10% in solution (GAMUNEX-C) IV Premix 200 mL (20 g total). 1 Active albuterol (PROVENTIL HFA; VENTOLIN HFA) 108 (90 Base) MCG/ACT inhaler 1 Active cromolyn (GASTROCROM) 100 MG/5ML solution Take 5 mL (100 mg total) by mouth as needed. 1 Active Azelastine HCl 137 MCG/SPRAY nasal spray 2 sprays into each nostril 2 (two) times a day. 2 Active famotidine (PEPCID) 20 MG tablet Take 1 tablet (20 mg total) by mouth 2 (two) times a day. 2 Active Breo Ellipta 200-25 MCG/ACT inhaler INHALE 1 PUFF BY MOUTH EVERY DAY 3 Active metoPROLOL SUCCINATE (TOPROL-XL) 25 MG 24 hr tablet TAKE 2 TABLETS BY MOUTH EVERY DAY IN THE MORNING AND 1 TABLET EVERY EVENING 2 Active triamcinolone (KENALOG) 0.1 % cream APPLY TWICE DAILY TO RASH ON THE LEGS FOR 2 WEEKS BREAK ONE WEEK THEN REPEAT NEEDED. 2 Active ondansetron (ZOFRAN-ODT) 4 MG disintegrating tablet Take 1 tablet (4 mg total) by mouth 3 times daily (every 8 hours). 2 Active fluocinonide (LIDEX) 0.05 % cream APPLY TO AFFECTED AREAS TWICE DAILY FOR 2 WEEKS, BREAK FOR 1 WEEK, REPEAT NEEDED. 2 Active OnabotulinumtoxinA (BOTOX IJ) 300 Units every 12 (twelve) weeks. Active SUMAtriptan (IMITREX) 50 MG tabletIndications: Migraine without aura and without status migrainosus, not intractable TAKE 1 TABLET BY MOUTH ONCE NEEDED FOR MIGRAINE, MAY REPEAT IN 2 HOURS IF UNRESOLVED, MAX 4/24HRS 9 tablet 5 3 Active Dupixent 300 MG/2ML prefilled syringe 4 Active atogepant (QULIPTA) 60 mg tabletIndications: Migraine without aura and without status migrainosus, not intractable Take 1 tablet (60 mg total) by mouth daily. 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 TAKE 1 TABLET BY MOUTH THREE TIMES A DAY NEEDED FOR MUSCLE SPASM 270 tablet 1 4 12/09/19 25 Discontinued Active Problems Problem Noted Date Diagnosed Date Asthma 09/27/2022 Sleep-related hypoventilation 09/27/2022 Crohn's disease 09/27/2022 Disorder of autonomic nervous system 09/27/2022 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 09/27/2022 Postural orthostatic tachycardia syndrome 2021 Superior mesenteric artery syndrome 09/27/2022 Ventricular tachycardia 09/27/2022 Abdominal pain 08/10/2020 Alopecia 08/10/2020 Attention deficit disorder with hyperactivity Obstructive sleep apnea 08/10/2020 Other chronic pain 08/10/2020 Other dystonia 05/18/2020 Migraine 11/25/2019 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 Seasonal allergic rhinitis 11/25/2019 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/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 Resolved Problems Problem Noted Date Diagnosed Date Resolved Date Routine general medical exam ination at a health care facility 08/10/2020 10/01/2024 Encounters Date Type Department Care Team Description 12/08/2024 [facility] Neurology [address] [phone] Jarrett Huff MD 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 from Last 3 Months Family History Medical History Relation Name Comments Allergies Brother Atrial fibrillation Brother Allergies Father Pacemaker Father Diabetes Mother Heart disease Mother Dementia Paternal Grandmother Relation Name Status Comments Brother Father Mother Paternal Grandmother Social History Tobacco Use Types Packs/Day Years Used Date Smoking Tobacco: Every Day Cigarettes Smokeless Tobacco: Current Tobacco Cessation:Ready to Q uit: Not Asked; Counseling Given: Not Answered Comments:quit on off Alcohol Use Standard Drinks/Week [...] PM EDT Sexual Orientation Not on file Last Filed Vital Signs Vital Sign Reading Time Taken Comments Blood Pressure 108/79 12/15/2023 11:39 AM EST Pulse 94 12/15/2023 11:39 AM EST Temperature 36.6 ??C (97.9 ??F) 07/05/2022 10:15 AM E DT check-in Respiratory Rate 18 09/27/2019 11:20 AM EST Oxygen Saturation 97% 12/15/2023 11:39 AM EST Inhaled Oxygen Concentration - - Weight 52.2 kg (115 lb) 12/15/2023 11:39 AM EST Height 162.6 cm (5' 4 ) 12/15/2023 11:39 AM EST Body Mass Index 19.74 12/15/2023 11:39 AM EST Plan of Treatment Upcoming Encounters Date Type Department Care Team (Late st Contact Info) Description 01/23/2025 11:20 AM EDT Office Visit [facility] Neurology [address] [phone] Jose Angel Bishop, CEMENT SPRAYER HELPER 280 [facility] [address] [place] [address] Health Maintenance Due Date Last Done Comments Hepatitis C Virus Screening 1983 COVID-19 Vaccine (#1) 02/08/1988 HIV Screening 02/08/1996 DTaP/Tdap/Td Vaccines (1 - Tdap) 2002 Hepatitis B Vaccines (1 of 3 - 19+ 3-dose series) 2002 Pneumococcal Vaccine: Pediat nick (0-5 Years) and At-Risk Patients (6 to 49 Years) (1 of 2 - PCV) 2002 Pap Smear (Ages 21-65) 02/08/2004 Mammogram 2023 Influenza Vaccine 06/06/2024 HPV Vaccines Aged Out No longer eligi ble based on patient's age to complete this topic Care Teams Environmental Services Attendant Relationship Specialty Start Date End Date Wesley Grover MD [address] [place] [address] [place] [address] PCP - General Internal Medicine 07/23/21 Jarrett Huff MD [address] [place] [address] Physician Neurology 02/26/20 Jassi Oseguera [address] [place] [address] [address] [place] [address] Physician Pulmonary Medicine 09/27/22 Pricilla Hester MD Psychiatrist 05/11/20 DO KIMBERLY Rooney: [facility] Consulting Provider Allergy 10/12/21
--- OUTSIDE RECORDS SUMMARY | 2024-12-31 16:36 | XMS_ITS | Encounter Summary ---
Author Organization [facility] Address [address] [place] [address] Care Team Providers Care Scrap Hoist Operator Name Role Phone Jarrett Huff MD Unavailable [phone] Wesley Grover MD Primary Care Provider [phone] Jassi Oseguera Unavailable Reason for Visit * Reason Comments Medication Refill Encounter Details Date Type Department Care Team (Late st Contact Info) Description 12/08/2024 Refill [facility] Neurology [address] [place] [phone] Jarrett Huff MD [address] [place] [address] [address] [place] [address] 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 Social History Tobacco Use Types Packs/Day Years [...] Description 01/23/2025 11:20 AM EDT Office Visit [facility] Neurology [place] [address] [phone] Jose Angel Bishop APRN [address] [address] documented as of this encounter Visit Diagnoses Diagnosis 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
--- OUTSIDE RECORDS SUMMARY | 2024-12-31 16:36 | XMS_ITS | Encounter Summary ---
Author Organization [facility] Address [address] [place] [address] Care Team Providers Care Debone Processing Supervisor Name Role Phone Jarrett Huff MD Unavailable [phone] Wesley Grover MD Primary Care Provider [phone] Jassi Oseguera Unavailable Encounter Details Date Type Department Care Team (Late st Contact Info) Description 09/23/2024 Scanned Document [facility] Neurology [address] [phone] Neurology, Scan Social History Tobacco [...] Description 01/23/2025 11:20 AM EDT Office Visit [facility] Neurology [address] [phone] Jose Angel Bishop APRN [address] [address] documented as of this encounter Visit Diagnoses Not on filedocumented in this encounter Care Teams Debone Processing Supervisor Relationship Specialty Start Date End Date Wesley Grover MD [address] [place] [address] [address] [place] [address] PCP - General Internal Medicine 07/23/21 Jarrett Huff MD [address] [address] Physician Neurology 02/26/20 Jassi Oseguera [address] [facility] [address] [place] [address] Physician Pulmonary Medicine 09/27/22 Pricilla Hester MD Psychiatrist 05/11/20 DO KIMBERLY Rooney: [facility] Consulting Provider Allergy 10/12/21 documented as of this encounter
--- OUTSIDE RECORDS SUMMARY | 2024-12-31 16:36 | XMS_ITS | Encounter Summary ---
Author Organization [facility] Address [address] [place] [address] Care Team Providers Care Grit Blaster Name Role Phone Jarrett Huff MD Unavailable [phone] Wesley Grover MD Primary Care Provider [phone] Jassi Oseguera Unavailable Reason for Visit * Reason Comments Med Change Request Encounter Details Date Type Department Care Team (Late st Contact Info) Description 06/06/2023 [facility] Neurology [address] [place] [address] Jarrett Huff MD [address] [place] [address] [address] [place] [address] Migraine without aura and without status migrainosus, not intractable Social History Tobacco Use Types Packs/Day Years [...] on file documented as of this encounter Miscellaneous Notes * Telephone Encounter - Parvez Zamorano MA - 06/13/2023 10:35 AM EDT I spoke with the patient and she is willing to try whichever injectable (Aimovig or Emgality) you think would be best. Does she have to space the medication out so she does not take it at the same time she receives botox or IVIG? * Telephone Encounter - Jarrett Huff MD - 06/09/2023 2:20 PM EDT Please let the patient know that plan alternatives include: AIMOVIG, EMGALITY. I did discuss these once-monthly injectables with the patient during her visit. Please ask her if she is willing to try one of these instead of Nurtec and I will send in a prescription. * Telephone Encounter - Carmen Stauffer - 06/09/2023 11:52 AM EDT Images from the original note were not included. Received second fax stating we may appeal within 60 days. * Telephone Encounter - Carmen Stauffer - 06/09/2023 11:41 AM EDTSummary: RONNELL DENIAL FOR NURTEC Prior Authorization Denied Medication: NURTEC 75MG ODT Rationale: Decision Notes: Nurtec ODT tablet is not on the list of drugs covered by your plan. This covered drug list is also known as a formulary. This means it is not covered by your plan. The records sent to us do not show you had side effects or drug safety issues with our covered drugs. We did not get the extra records that are needed to approve this request from your doctor. We tried to reach your doc tor for those records. We did not get a reply. For that reason we cannot show this drug is necessary to treat your health issue at this time. These covered drugs may also be used for your health issue: Aimovig, Emgality. Please note, prior authorization is needed. A copy of this letter is being sent to your doctor or health care provider. Insurance: [employer] Reference Number: [place]: [id number] - [place] Plan Alternatives: AIMOVIG, EMGALITY Appeal Options/Next Steps: LETTER DOES NOT MENTION APPEAL Additional Information: N/A documented in this encounter Plan of Treatment Upcoming Encounters Date Type Department Care Team (Late st Contact Info) Description 01/23/2025 11:20 AM EDT Office Visit [facility] Neurology [address] [phone] Jose Angel Bishop APRN [address] [address] documented as of this encounter Visit Diagnoses Diagnosis Migraine without aura and without status migrainosus, not intractable documented in this encounter Care Teams Grit Blaster Relationship Specialty Start Date End Date Po, Wesley Clemens MD [address] [place] [address] PCP - General Internal Medicine 07/23/21 Jarrett Huff MD [address] [place] [address] Physician Neurology 02/26/20 Jassi Oseguera [address] [place] [address] [address] [place] [address] Physician Pulmonary Medicine 09/27/22 Pricilla Hester MD Psychiatrist 05/11/20 DO KIMBERLY Rooney: [facility] Consulting Provider Allergy 10/12/21 documented as of this encounter
--- OUTSIDE RECORDS SUMMARY | 2024-12-31 16:36 | XMS_ITS | Encounter Summary ---
Author Organization [facility] Address [address] [place] [address] Care Team Providers Care Sander Setter Name Role Phone Jarrett Huff MD Unavailable [phone] Wesley Grover MD Primary Care Provider [phone] Jassi Oseguera Unavailable Encounter Details Date Type Department Care Team (Late st Contact Info) Description 08/13/2024 Scanned Document [facility] Neurology [address] [phone] Neurology, Scan Social History Tobacco [...] Description 01/23/2025 11:20 AM EDT Office Visit [facility] Neurology [address] [phone] Jose Angel Bishop APRN [address] [address] documented as of this encounter Visit Diagnoses Not on filedocumented in this encounter Care Teams Sander Setter Relationship Specialty Start Date End Date Wesley Grover MD [address] [place] [address] [address] [place] [address] PCP - General Internal Medicine 07/23/21 Jarrett Huff MD [address] [address] Physician Neurology 02/26/20 Jassi Oseguera [address] [facility] [address] [place] [address] Physician Pulmonary Medicine 09/27/22 Pricilla Hester MD Psychiatrist 05/11/20 DO KIMBERLY Rooney: [facility] Consulting Provider Allergy 10/12/21 documented as of this encounter
--- OUTSIDE RECORDS SUMMARY | 2024-12-31 16:36 | XMS_ITS | Encounter Summary ---
Author Organization [facility] Address [address] [place] [address] Care Team Providers Care Hop Separator Name Role Phone Jarrett Huff MD Unavailable [phone] Wesley Grover MD Primary Care Provider [phone] Jassi Oseguera Unavailable Encounter Details Date Type Department Care Team (Late st Contact Info) Description 10/06/2023 Scanned Document [facility] NEUROLOGY SCAN Jarrett Huff MD [address] [facility] [address] [place] [address] Social History Tobacco Use Types Packs/Day Years [...] Description 01/23/2025 11:20 AM EDT Office Visit [facility] Neurology [address] [place] [address] Jose Angel Bishop APRN [address] [address] documented as of this encounter Visit Diagnoses Not on filedocumented in this encounter Care Teams Hop Separator Relationship Specialty Start Date End Date Wesley Grover MD [address] [place] [address] [address] [place] [address] PCP - General Internal Medicine 07/23/21 Jarrett Huff MD [address] [address] Physician Neurology 02/26/20 Jassi Oseguera [address] [facility] [address] [place] [address] Physician Pulmonary Medicine 09/27/22 Pricilla Hester MD Psychiatrist 05/11/20 DO KIMBERLY Rooney: [facility] [place] Consulting Provider Allergy 10/12/21 documented as of this encounter
--- OUTSIDE RECORDS SUMMARY | 2024-12-31 16:36 | XMS_ITS | Patient Health Record ---
Author Organization [facility] Address [address] [place], [place] [id number] Care Team Providers Care Brand Ambassadors Promotional Sales Name Role Phone Otisbrett Nathanael Primary Care Provider ALLERGIES Allergen (clinical drug ingredient) Drug/Non Drug Allergy documented on EMR Reaction Allergy Type Onset Date Status Contrast (uncoded) Unknown Allergy A ctive EPINEPHrine Unknown Drug Allergy Activ e Eggs/Apples/Oats Unknown Drug Allergy Active REASON FOR REFERRAL No Information MEDICATIONS Medication SIG (Take, Route, Frequency, Duration) Notes Start Date End Date Status Ipratropium [place] 0.06 % 2 sprays in each nostril Nasally Twice a day for 30 days Active Dymista 137-50 MCG/ACT 1 spray in each nostril Nasally Twice a day for 90 days 09/23/2020 Active Cromolyn Sodium 100 MG/5ML 1 vial Orally BID for 48 days Active Breo Ellipta 200-25 MCG/INH 1 puff Inhalation Once a day for 30 days Active Montelukast Sodium 10 MG 1 tablet Orally Once a day for 90 days Active Ondansetron 4 MG 1 tablet on the tongue and allow to dissolve Orally BID PRN for 30 days Active Fludrocortisone Acetate 0.1 MG 1 tablet Orally once daily for 30 days Active EpiPen 2-Roger 0.3 MG/0.3ML (1:1000) 1 Injection into outer thigjh PRN for severe allergic reaction for 2 days Active Metoprolol Succinate ER 25 MG 1 tablet Orally 2 tablets in the morning, one tablet at night for 90 days Active Gabapentin 300 MG 1 capsule Orally Three times a day for 30 days Active Pentoxifylline ER 400 MG TAKE ONE TABLET BY MOUTH THREE TIMES A DAY WITH MEALS for 90 Active Fexofenadine HCl 180 MG 1 tablet as need ed Orally four times a day for 30 days Active ProAir HFA 108 (90 Base) MCG/ACT 2 puffs as needed Inhalation every 6 hrs for 25 Active Amitiza 8 MCG 1 capsule with food Orally Twice a day for 90 days Active Pentoxifylline 400 MG 1 tablet with meal s Orally Three times a day for 90 days Active Botox 200 UNIT Injection Every 11 weeks For headaches Active Beclomethasone Diprop HFA 40 MCG/ACT 2 puffs Inhalation BID for 30 days Active EPINEPHrine 0.15 MG/0.15ML Injection into outer thigh PRN for severe allergic reaction Active Fioricet 50-300-40 MG 1 capsule as neede d Orally TID for 30 days 03/20/2019 Active Promethazine HCl 25 MG 1 tab Orally twic e a day as needed for 30 days Active Adderall XR 25 MG 1 capsule in the morning Orally Once a day Active Cyclobenzaprine HCl 10 MG 1 tablet as ne eded Orally BID for 30 days Active SOCIAL HISTORY Sex Assigned At : Social History Observation Description Sex Assigned At Unknown Alcohol Screen Question Answer Notes Did you have a drink containing alcohol in the p ast year? No Points 0 Interpretation Negative Tobacco use other than smoking: Question Answer Notes Are you an other tobacco user? Yes P atient is a smoker for 15 years, currently patient is on and off due to wanting to stop, does not want help at this time wants to stop on her own first. Section Notes: Patient is a smoker for 15 y ears, currently patient is on and off due to wanting to stop, does not want help at this time wants to stop on her own first. Patient is a smoker for 15 y ears, currently patient is on and off due to wanting to stop, does not want help at this time wants to stop on her own first. 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 (4296177) iv/ig every 4 weeks with [facility] Problem Migraine, unspecified, not intractable, without status migrainosus (G43.909) Active confirmed Migraine withou t aura, not refractory (disorder) (076540783) Good today Problem Sleep related hypoventilation in conditions classified elsewhere (G47.36) Active confirmed Sleep related hypoventilation (292631905) Nocturnal hypoxemia Problem Other seasonal allergic rhinitis (J30.2) Active confirmed Seasonal allerg ic rhinitis (711635203) Problem 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 Mast cell activation syndrome (disorder) (9727954412016119 0) Problem 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 cutaneous mastocytosis (9861817351868790 6) PLAN OF TREATMENT Pending Test Test Name Order Date LIPID PANEL 09/08/2020 LIPID PANEL 02/21/2019 COMPREHENSIVE METABOLIC PANEL 02/21/2019 COMPREHENSIVE METABOLIC PANEL 09/08/2020 CBC (INCLUDES DIFF/PLT) 02/21/2019 CBC (H/H, RBC, INDICES, WBC, PLT) 2019 SED RATE BY MODIFIED WESTERGREN 02/22/20 19 LYME DISEASE AB W/REFL TO BLOT (IGG, IGM ) 09/08/2020 LYME DISEASE AB W/REFL TO BLOT (IGG, IGM ) 02/21/2019 LYME DISEASE ANTIBODIES (IGG,IGM), IMMUN OBLOT 09/08/2020 HEMOGLOBIN A1c 02/21/2019 HEMOGLOBIN A1c 09/08/2020 VITAMIN B12 02/21/2019 VITAMIN B12 09/08/2020 T4, FREE 09/08/2020 T4, FREE 02/21/2019 TSH 02/21/2019 TSH 09/08/2020 T3, FREE 09/08/2020 T3, FREE 02/21/2019 QUESTASSURED 25-OH VIT D, (D2,D3), LC/MS /MS 02/21/2019 [place]URED 25-OH VIT D, (D2,D3), LC/MS /MS 09/08/2020 COVID-19 02/06/2020 Insurance Providers Payer Name Payer Address Payer Phone Subscriber Number Group Number Insured Name Patient Relationship to Insured Coverage Start Date Coverage End Date Medicare/N [employer] [address] [facility] [place] [id number] Roshni Lorenzo Self - patient is the insured 7 [employer]/Med icaid [address] [place] [id number] Roshni Lorenzo Self - patient is the insured 9 MEDICAL (GENERAL) HISTORY Medical History History ICD Code Other specified polyneuropathies G62.89 Essential (primary) hypertension I10 Other specified conditions a ssociated with female genital organs and menstrual cycle N94.89 Other mast cell activation disorder D89. 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
--- OUTSIDE RECORDS SUMMARY | 2024-12-31 16:36 | XMS_ITS | Clinical Summary ---
Author Organization [facility] [employer] [facility] Address [address] [place] [address] Care Team Providers Care Fixed Income Portfolio Manager Name Role Phone Pcp, No Primary Care Provider [phone] Social History Tobacco Use Types Packs/Day Years Used Date Smoking Tobacco: Never Assessed Comments Unknown Sex and Gender Information Value Date Recorded Sex Assigned at Not on file Legal Sex Female 11:02 AM EST Gender Identity Not on file Sexual Orientation Not on file Last Filed Vital Signs Vital Sign Reading Time Taken Comments Blood Pressure - - Pulse 96 12/22/2020 3:36 PM EST Temperature 36.5 ??C (97.7 ??F) 12/22/2020 3:36 PM ES T Respiratory Rate - - Oxygen Saturation 97% 12/22/2020 3:36 PM EST Inhaled Oxygen Concentration - - Weight - - Height - - Body Mass Index - - Plan of Treatment Health Maintenance Due Date Last Done Comments Depression: Screening Annual ly using PHQ-2/9 in Adults 18 yrs or above (or HM Modifier)([facility]) 2001 Hepatitis C Virus Infection in Adolescents and Adults: Screening (or Modifier) ([facility]) 2001 SDAK Screening Reminder: Geovanna avila for all adults ([facility]) 2001 Tobacco Smoking Cessation: i n Adults excluding Women: Behavioral and Pharmacotherapy Interventions ([facility]) 2001 DTaP/Tdap/Td Vaccines ([facility]) (1 - Tdap) 2002 Lipid Screening: Once for Wo men aged 20 to 45 yrs ([facility]) 2003 Cervical Cancer Screenin 1-65 yrs of age (or Modifier) 02/08/2004 Cervical Cancer Screening: P ap every 3 yrs pts age 21-65 02/08/2004 Cervical Cancer: Pap Screeni ng with Modifier timing ([facility]) 02/08/2004 Cervical Cancer: hrHPV alone or with cotesting Pap for Pts 30-65yrs screening every 5yrs ([facility]) 02/08/2004 Flu Vaccination: Yearly for ages 18mos through 64 years (or Modifier)([facility]) 06/06/2024 COVID-19 Vaccine Screening: Initial Series and Booster Status ([facility]) ( - 2023- season) 2024 Zoster/Shingles Vaccine Seri es Screening: Adults aged 18+ yrs (or HM Modifiers)([facility]) (1 of 2) 2033 Pneumococcal Vaccination Scr eening: Pts 0-19 & 19-64 yrs of age ([facility]) Aged Out No longer eligible based on patient's age to complete this topic Medical Devices Not on file Insurance MEDICARE Care Teams Fixed Income Portfolio Manager Relationship Specialty Start Date End Date Ana Marley PCP - General Family Medicine 10/28/20
--- OUTSIDE RECORDS SUMMARY | 2024-12-31 16:36 | XMS_ITS | Encounter Summary ---
Author Organization [facility] Address [address] [place] [address] Care Team Providers Care Inbound Sales Consultant Name Role Phone Nathanael Alfredo MD Primary Care Provider [phone] Jarrett Huff MD Unavailable [phone] Tash Enrique Unavailable [phone] Angelito Ruelas MD Unavailable [phone] Wesley Grover MD Primary Care Provider [phone] Jassi Oseguera Unavailable Encounter Details Date Type Department Care Team (Late st Contact Info) Description 08/07/2019 Scanned Document [facility] Neurology [address] [phone] Jarrett Huff MD [address] [place] [address] [address] [place] [address] Social History Tobacco Use Types Packs/Day Years [...] AM EDT Office Visit [facility] Neurology [place] [address] [phone] Jose Angel Bishop, RELAY REPAIRER [address] [address] documented as of this encounter Visit Diagnoses Not on filedocumented in this encounter Care Teams Inbound Sales Consultant Relationship Specialty Start Date End Date Nathanael Alfredo MD [address] [place] [address] PCP - General Internal Medicine 03/06/19 07/22/21 Wesley Grover MD [address] [place] [address] PCP - General Internal Medicine 07/23/21 Jarrett Huff MD [address] [place] [address] Physician Neurology 02/26/20 Tash Enrique PA [address] [address] Consulting Provider Neurology 02/26/20 10/11/21 Angelito Ruelas MD [address] [place] [address] Consulting Provider Pulmonary Medicine 02/05/21 Jassi Oseguera [address] [place] [address] [address] [place] [address] Physician Pulmonary Medicine 09/27/22 Pricilla Hester MD Psychiatrist 05/11/20 DO KIMBERLY Rooney: [facility] Consulting Provider Allergy 10/12/21 documented as of this encounter
--- OUTSIDE RECORDS SUMMARY | 2024-12-31 16:36 | XMS_ITS | Encounter Summary ---
Author Organization [facility] Address [address] [place] [address] Care Team Providers Care Asset Manager Name Role Phone Jarrett Huff MD Unavailable [phone] Tash Enrique Unavailable [phone] Angelito Ruelas MD Unavailable [phone] Wesley Grover MD Primary Care Provider [phone] Jassi Oseguera Unavailable Encounter Details Date Type Department Care Team (Late st Contact Info) Description 07/23/2021 Scanned Document [facility] Neurology [address] [phone] Jarrett Huff MD 35 [facility] [address] [place] [address] Social History Tobacco Use Types Packs/Day Years [...] PM EDT Sexual Orientation Not on file COVID-19 Exposure Response Date Recorded In the last month, have you been in contact with someone who was confirmed or suspected to have Coronavirus / COVID-19? No / Unsure 07/23/2021 2:05 PM EDT documented as of this encounter Plan of Treatment Upcoming Encounters Date Type Department Care Team ([facility] st Contact Info) Description 01/23/2025 11:20 AM EDT Office Visit [facility] Neurology [place] [address] [phone] Jose Angel Bishop, WATER MAINTENANCE SUPERVISOR [address] [facility] [address] [place] [address] documented as of this encounter Visit Diagnoses Not on filedocumented in this encounter Care Teams Asset Manager Relationship Specialty Start Date End Date Reilly, Wesley Clemens MD [address] [place] [address] [address] [place] [address] PCP - General Internal Medicine 07/23/21 Jarrett Huff MD [address] [address] Physician Neurology 02/26/20 Tash Enrique PA 69 [facility] [address] [place] [address] Consulting Provider Neurology 02/26/20 10/11/21 Angelito Ruelas MD [address] [place] [address] Consulting Provider Pulmonary Medicine 02/05/21 Jassi Oseguera [address] [place] [address] [id number] [place] [address] Physician Pulmonary Medicine 09/27/22 Pricilla Hester MD Psychiatrist 05/11/20 DO KIMBERLY Rooney: [facility] Consulting Provider Allergy 10/12/21 documented as of this encounter
--- OUTSIDE RECORDS SUMMARY | 2024-12-31 16:37 | XMS_ITS | Data Portability ---
Author Organization [place] - [facility] O B/MAMMA LOGIST, UCHEAL - Address [address] [place] [address] Assessment No assessment recorded. Plan of Treatment Reminders Order Date Submit Date Provider Last Modified By Organization Details Last Modified Time Details Appointments None recorded. Lab CT + NG + TV, DNA, urine/swab 2018 019 [email or web address] Not available 9 10:45:35 RPR (rapid plasma reagin), serum 2018 019 STEFANY Not available 9 14:48:00 HIV 1+2 AB + HIV 1 p24 Ag, qualitative immunoassay , serum 2018 019 [email or web address] Not available 9 10:45:35 hepatitis C Ab, serum 2018 019 STEFANY Not available 9 14:48:00 CT + NG + TV, DNA, urine/swab 2017 018 STEFANY Not available 8 15:32:45 RPR (rapid plasma reagin), serum 2017 018 [email or web address] 67 Not available 8 10:20:27 HIV 1+2 AB + HIV 1 p24 Ag, qualitative immunoassay , serum 2017 018 [email or web address] 67 Not available 8 10:20:27 hepatitis C Ab, serum 2017 018 [email or web address] 67 Not available 8 10:20:27 hsv (1+2) Ab, serum 2017 018 [email or web address] 67 Not available 8 10:20:28 Referral None recorded. Procedures None recorded. Surgeries None recorded. Imaging None recorded. Medication Orders None recorded. Patient TargetsNo targets recorded. Patient Instructions Encounter Date Encounter Id Patient Instructions Last Modified By Organization Details Last Modified Time 11/09/2017 [id number] abdominal pain: care instructions [email or web address] Not available 11/09/2017 12:34:34 Reason for Referral None Reported. Results Created Date Observation Date Name Description Value Unit Range Abnormal Flag Note LastModifiedBy Organization Detail LastModifiedTime 10/10/20 18 10/10/2018 CT + NG + TV, DNA, urine /swab chlamydia trachomatis Negati ve Not Available [facility] (Lab) [address] [facility] [address], [place], [address], 10/12/2018 15:32:43 10/10/20 18 10/10/2018 CT + NG + TV, DNA, urine /swab neisseria gonorrhoeae Negati ve Not Available [facility] (Lab) [address] [facility] [address], [place], [address], 10/12/2018 15:32:43 10/10/20 18 10/10/2018 CT + NG + TV, DNA, urine /swab trichomonas vaginalis Negati ve Site: Vagin al Speci men: Diagn osis Code( s): Z72.5 1 (as provi ded) Above tests were perfo rmed using nucle ic acid ampli ficat ion techn ology . The follo wing comme nts may refer to organ isms other than those teste d. Testi ng for Chlam ydia trach omati s (CT) and Neiss eria gonor rhoea e (NG) is FDA appro evan, and valid ated at [facility] ([facility] ), for clini annabelle- colle cted gynec ologi yogesh speci mens in ThinP rep, clini annabelle- colle cted endoc ervic al/va ginal and male ureth ral Aptim a swab speci mens, patie nt-co llect ed Aptim a vagin al swab speci mens and femal e and male urine speci mens. Testi ng for Trich omona s vagin justina (TV) is FDA appro evan, and valid ated at [facility] for clini annabelle- colle cted gynec ologi yogesh speci mens in ThinP rep, clini annabelle- colle cted endoc ervic al/va ginal Aptim a swab speci mens. These CT/NG /TV tests have been modif ied and valid ated for use with addit ional speci men types from other body sites at [facility] Labor atory . All other testi ng was devel oped and their perfo rmanc e kwabena cteri stics deter mined and valid ated at [facility]. They have not been appro evan or clear ed by the U.S. Food and Drug Admin istra tion. The FDA has deter mined that such clear ance or appro fabian is not neces sunny. [facility] is regul ated under CLIA, as quali fied to perfo rm high- compl exity testi ng. These tests are used for clini yogesh purpo ses. They shoul d not be regar ded as inves tigat ional or for resea rch. Their repor table range s, cut-o ff value s and addit ional test perfo rmanc es are avail able from [facility] upon reque st. The cut-o ff value for a posit leslie resul t for Gardn erell a vagin justina and for Atopo bium vagin ae is 10,00 0 organ isms per react ion (2,00 0 organ isms per ul). Value s at or above cut-o ff are consi dered posit leslie and are assoc iated with bacte rial vagin osis. The cut-o ff value for Lacto bacil diane spp. is 10,00 0 organ isms per react ion (2,00 0 organ isms per ul). Value s at or above cut-o ff are consi dered posit leslie and are assoc iated with juan m l vagin al bo . Lacto bacil diane:G ardne rella ratio is an indic ator of the relat leslie numbe r of organ isms in the vagin al bo . Value s at or over 10:1 are assoc iated with juan m l vagin al bo . Patie nts with early BV may prese nt with posit leslie Gardn erell a and Lacto bacil diane spp. resul ts, while patie nts that are teste d immed iatel y after the compl etion of antib iotic thera py may prese nt with negat leslie Gardn erell a and Lacto bacil diane resul ts. Lacto bacil diane:G ardne rella ratio may be a helpf ul indic ator of vagin al healt h in those patie nts. Resul ts from these assay s shoul d be inter prete d in conju nctio n with other labor atory and clini yogesh data. Test resul ts can be affec leanne by recen t or concu rrent antib iotic /anti funga l thera py, possi ble mutat ions in test organ isms, devia tion from recom roberto d speci men colle ction , testi ng of speci mens obtai casey from sites other than those valid ated by [employer], and the prese nce of inhib itory subst ances which may inclu de exces sive blood , lubri cant and/o r mucus . A negat leslie resul t in the prese nce of other signs or sympt oms of infec tion shoul d be regar ded as a poten tial false negat leslie and repea t testi ng may be indic ated. Posit leslie resul ts for some of the tests (Cand kim spp.) canno t fully diffe renti ate betwe en asymp tomat ic ilsa ers and patie nts with infec tion and corre latio n with clini yogesh findi ngs is neces sunny. Expec leanne resul ts of each teste d organ ism, with the excep tion of Lacto bacil diane spp., is negat leslie. Expec leanne resul t of Lacto bacil diane spp. test is posit leslie. All posit leslie Chlam ydia trach omati s and/o r Neiss eria gonor rhoea e resul ts have been repor leanne to [facility]. Resul ts are not valid for foren sic purpo ses or in cases of suspe cted sexua l abuse . CT/NG /TV testi ng is perfo rmed per CDC 2014 recom menda tions and does not inclu de confi rmati on of posit leslie resul ts with an alter nativ e nucle ic acid targe giovana Spear s other sherman noted , speci mens proce ssed and inter prete d at: [address] [facility] [address] [place] [address] Not Available [facility] (Lab) [address] [facility] [address], [place], [address], 10/12/2018 15:32:43 10/10/20 18 10/13/2018 hepat itis C virus Ab, serum hepatitis C antibody NON-RE ACTIVE non-re active normal Not Available [facility] [place] [address] [place], [address], 10/13/2018 17:49:15 10/10/20 18 10/13/2018 hepat itis C virus Ab, serum signal to cut-off 0.01 <1.00 normal Not Available [facility] [place] [address] [place], [address], 10/13/2018 17:49:15 10/10/20 18 10/13/2018 hsv (1+2) igg, serum hsv 1 IgG, type specific Ab 47.40 index high Not Available [facility] [place] [address] [place], [address], 10/13/2018 17:49:16 10/10/20 18 10/13/2018 hsv (1+2) igg, serum hsv 2 IgG, type specific Ab <0.90 index normal Index Inter preta tion ----- ----- ----- ---- <0.90 Negat leslie 0.90- 1.09 Equiv ocal >1.09 Posit leslie This assay utili zes recom binan t type- speci fic antig ens to diffe renti ate HSV-1 from HSV-2 infec tions . A posit leslie resul t canno t disti nguis h betwe en recen t and past infec tion. If recen t HSV infec tion is suspe cted but the resul ts are negat leslie or equiv ocal, the assay shoul d be repea leanne in 4-6 weeks . The perfo rmanc e kwabena cteri stics of the assay have not been estab lishe d for pedia tric popul ation s, immun ocomp romis ed patie nts, or neona fernie scree toney. Not Available [facility] [address] [address], [place], [address], 10/13/2018 17:49:16 10/10/20 18 10/13/2018 HIV 1+2 Ab + HIV1 p24 Ag, quant itati ve immun oassa y, serum HIV Ag/Ab, 4TH gen NON-RE ACTIVE non-re active normal HIV-1 antig en and HIV-1 /HIV- 2 antib odies were not detec leanne. There is no labor atory evide nce of HIV infec tion. PLEAS E NOTE: This infor matio n has been discl osed to you from recor ds whose confi denti ality may be prote cted by state law. If your state requi res such prote ction , then the state law prohi bits you from aaron boyd [facility] er discl osure of the infor matio n witho ut the speci fic writt en conse nt of the perso n to whom it perta ins, or as other sherman permi tted by law. A gener al autho karlat ion for the relea se of medic al or other infor matio n is NOT suffi cient for this purpo se. For addit ional infor matio n pleas e refer to http: //[facility] judy vang.[place] stdia gnost ics.c om/fa q/FAQ 106 (This link is being provi ded for infor matio nal/ educa karlos l purpo ses only. ) The perfo rmanc e of this assay has not been clini thelma valid ated in patie nts less than 2 years old. Not Available [facility] [address] [place], [address], 10/13/2018 17:49:16 10/10/20 18 10/13/2018 hsv (1+2) igm Ab, quant , serum , refle x titer hsv 1 IgM screen NEGATI VE Not Available [facility] [place] [address] [place], [address], 10/13/2018 17:49:17 10/10/20 18 10/13/2018 hsv (1+2) igm Ab, quant , serum , refle x titer hsv 2 IgM screen NEGATI VE REFER ENCE RANGE : NEGAT LESLIE The IFA proce dure for measu ring IgM antib odies to HSV 1 and HSV 2 detec ts both type- commo n and type- speci fic HSV antib odies . Thus, IgM react ivity to both HSV 1 and HSV 2 may repre sent cross react leslie HSV antib odies rathe r than expos ure to both HSV 1 and HSV 2. This test was devel oped and its bk tical perfo rmanc e kwabena cteri stics have been deter mined by [facility] Infec tious Disea se. It has not been clear ed or appro evan by FDA. This assay has been valid ated pursu ant to the CLIA regul ation s and is used for clini yogesh purpo ses. Not Available [facility] [place] [address] [place], [address], 10/13/2018 17:49:17 10/10/20 18 10/13/2018 RPR (rapi d plasm a reagi n), serum RPR (monitor) w/refl titer NON-RE ACTIVE non-re active normal Not Available [facility] [place] [address] [place], [address], 10/13/2018 17:49:17 12/12/19 19 12/12/2018 CT + NG + TV, DNA, urine /swab chlamydia trachomatis Negati ve Not Available [facility] (Lab) [address] [facility] [address] [facility], [place], [address], 12/13/2018 17:09:47 12/12/19 19 12/12/2018 CT + NG + TV, DNA, urine /swab neisseria gonorrhoeae Negati ve Not Available [facility] (Lab) [address] [facility] [address], [place], [address], 12/13/2018 17:09:47 12/12/19 19 12/12/2018 CT + NG + TV, DNA, urine /swab trichomonas vaginalis Negati ve Site: Vagin al Speci men: Diagn osis Code( s): Z72.5 1 (as provi ded) Above tests were perfo rmed using nucle ic acid ampli ficat ion techn ology . The follo wing comme nts may refer to organ isms other than those teste d. Testi ng for Chlam ydia trach omati s (CT) and Neiss eria gonor rhoea e (NG) is FDA appro evan, and valid ated at [facility] ([facility] ), for clini annabelle- colle cted gynec ologi yogesh speci mens in ThinP rep, clini annabelle- colle cted endoc ervic al/va ginal and male ureth ral Aptim a swab speci mens, patie nt-co llect ed Aptim a vagin al swab speci mens and femal e and male urine speci mens. Testi ng for Trich omona s vagin justina (TV) is FDA appro evan, and valid ated at [facility] for clini annabelle- colle cted gynec ologi yogesh speci mens in ThinP rep, clini annabelle- colle cted endoc ervic al/va ginal Aptim a swab speci mens. These CT/NG /TV tests have been modif ied and valid ated for use with addit ional speci men types from other body sites at [facility] . All other testi ng was devel oped and their perfo rmanc e kwabena cteri stics deter mined and valid ated at [facility]. They have not been appro evan or clear ed by the U.S. Food and Drug Admin istra tion. The FDA has deter mined that such clear ance or appro fabian is not neces sunny. [facility] is regul ated under CLIA, as quali fied to perfo rm high- compl exity testi ng. These tests are used for clini yogesh purpo ses. They shoul d not be regar ded as inves tigat ional or for resea rch. Their repor table range s, cut-o ff value s and addit ional test perfo rmanc es are avail able from [facility] upon reque st. The cut-o ff value for a posit leslie resul t for Gardn erell a vagin justina and for Atopo bium vagin ae is 10,00 0 organ isms per react ion (2,00 0 organ isms per ul). Value s at or above cut-o ff are consi dered posit leslie and are assoc iated with bacte rial vagin osis. The cut-o ff value for Lacto bacil diane spp. is 10,00 0 organ isms per react ion (2,00 0 organ isms per ul). Value s at or above cut-o ff are consi dered posit leslie and are assoc iated with juan m l vagin al bo . Lacto bacil diane:G ardne rella ratio is an indic ator of the relat leslie numbe r of organ isms in the vagin al bo . Value s at or over 10:1 are assoc iated with juan m l vagin al bo . Patie nts with early BV may prese nt with posit leslie Gardn erell a and Lacto bacil diane spp. resul ts, while patie nts that are teste d immed iatel y after the compl etion of antib iotic thera py may prese nt with negat leslie Gardn erell a and Lacto bacil diane resul ts. Lacto bacil diane:G ardne rella ratio may be a helpf ul indic ator of vagin al healt h in those patie nts. Resul ts from these assay s shoul d be inter prete d in conju nctio n with other labor atory and clini yogesh data. Test resul ts can be affec leanne by recen t or concu rrent antib iotic /anti funga l thera py, possi ble mutat ions in test organ isms, devia tion from recom roberto d speci men colle ction , testi ng of speci mens obtai casey from sites other than those valid ated by [employer], and the prese nce of inhib itory subst ances which may inclu de exces sive blood , lubri cant and/o r mucus . A negat leslie resul t in the prese nce of other signs or sympt oms of infec tion shoul d be regar ded as a poten tial false negat leslie and repea t testi ng may be indic ated. Posit leslie resul ts for some of the tests (Cand kim spp.) canno t fully diffe renti ate betwe en asymp tomat ic ilsa ers and patie nts with infec tion and corre latio n with clini yogesh findi ngs is avnessa correa. Expec leanne resul ts of each teste d organ ism, with the excep tion of Lacto bacil diane spp., is negat leslie. Expec leanne resul t of Lacto bacil diane spp. test is posit leslie. All posit leslie Chlam ydia trach omati s and/o r Neiss eria gonor rhoea e resul ts have [facility]. Resul ts are not valid for foren sic purpo ses or in cases of suspe cted sexua l abuse . CT/NG /TV testi ng is perfo rmed per CDC 2014 recom menda tions and does not inclu de confi rmati on of posit leslie resul ts with an alter nativ e nucle ic acid targe t. Unles s other sherman noted , speci mens proce ssed and inter prete d at: [address] [facility] [address], [place] [address] Not Available [facility] (Lab) [address] [facility] [address], [place], [address], 12/13/2018 17:09:47 12/12/19 19 12/14/2018 hepat itis C virus Ab, serum hepatitis C antibody NON-RE ACTIVE non-re active normal Not Available [facility] [address] [place], [address], 12/14/2018 14:48:00 12/12/19 19 12/14/2018 hepat itis C virus Ab, serum signal to cut-off 0.01 <1.00 normal Not Available [facility] [address] [address], [place], [address], 12/14/2018 14:48:00 12/12/19 19 12/14/2018 HIV 1+2 Ab + HIV1 p24 Ag, quant itati ve immun oassa y, serum HIV Ag/Ab, 4TH gen NON-RE ACTIVE non-re active normal HIV-1 antig en and HIV-1 /HIV- 2 antib odies were not detec leanne. There is no labor atory evide nce of HIV infec tion. PLEAS E NOTE: This infor matio n has been discl osed to you from recor ds whose confi denti ality may be prote cted by state law. If your state requi res such prote ction , then the state law prohi bits you from aaron salazar er discl osure of the infor matio n witho ut the speci fic writt en conse nt of the perso n to whom it perta ins, or as other sherman permi tted by law. A gener al autho roberta ion for the relea se of medic al or other infor matio n is NOT suffi cient for this purpo se. For addit ional infor matio n pleas e refer to http: //[facility] catmckenzie n.[place] stdia gnost ics.c om/fa q/FAQ 106 (This link is being provi ded for infor matio nal/ educa karlos l purpo ses only. ) The perfo rmanc e of this assay has not been clini thelma valid ated in patie nts less than 2 years old. Not Available [facility] [address] [address], [place], [address], 12/14/2018 14:48:00 12/12/19 19 12/14/2018 RPR (rapi d plasm a reagi n), serum RPR (monitor) w/refl titer NON-RE ACTIVE non-re active normal Not Available [facility] [address] [address], [place], [address], 12/14/2018 14:48:00 Result Notes None recorded. Problems Name Problem SNOMED Code Status Onset Date Resolution Date Notes Provider Name and Address Organization Details Recorded Time Menorrhag ia 529189230 Active 2016 Recurrent two years after endometria l ablation. Joe Lucas MD [address] [facility] [address], [place], [address] , [facility] ADVICE CLERK 7 13:50:41 Problem Notes None recorded. Procedures Surgical History Date Name Laterality Status Provider Name and Address Organization Details Recorded Time 12/05/19 17 Date of Last Pap Smear completed Nas[facility] ADVICE CLERK 08/03/2017 13:08:47 Endometrial Ablation completed [facility] ADVICE CLERK 08/03/2017 13:11:05 TOTAL LAPAROSCOPIC HYSTERECTOMY, ROBOTIC ASSISTED (SURG) completed Ping Patel [facility] ADVICE CLERK 10/25/2017 18:34:01 Imaging Results None recorded. Procedure Notes None recorded. Medical Equipment None Reported. Allergies Allergen ID Allergen Name Allergen Category Reaction Reaction Severity Criticality Documentation Date Start Date Code Code System Note Provider Name and Address Organization Details Recorded Time 256 iodine medicatio n Not available Not available Not available 08/03/2017 5933 RxNorm Contr ast Based [facility] ADVICE CLERK 7 13:08:24 Medications Name Sig Start Date Stop Date Status Note LastModified by Organization Details LastModified Time cyclobenzap rine 10 mg tablet Take 1 tablet every day by oral route. active Not Available Not Available No t Available cromolyn 100 mg/5 mL oral concentrate active Not Available Not Available Not Available Adderall 20 mg tablet Take 1 tablet every day by oral route. active Not Available Not Available No t Available Nasalcrom 5.2 mg/spray (4 %) spray [place] 1 spray 4 times a day by intranasa l route. active Not Available Not Available No t Available doxycycline hyclate 100 mg capsule 12/12 completed Not Available Not Available Not Available clindamycin HCl 300 mg capsule 12/12 completed Not Available Not Available Not Available epinephrine (Jr) 0.15 mg/0.3 mL injection,a uto-injecto r active Not Available Not Available Not Available ondansetron HCl 4 mg tablet Take 1 tablet every 12 hours by oral route. active Not Available Not Available No t Available fexofenadin e 180 mg tablet Take 4 tablets every day by oral route. active Not Available Not Available No t Available pentoxifyll ine ER 400 mg tablet,exte nded release active Not Available Not Available Not Available Zantac 150 mg tablet Take 1 tablet every day by oral route. 12/12 completed Not Available Not Available Not Available cephalexin 500 mg capsule 12/12 completed Not Available Not Available Not Available promethazin e 25 mg tablet active Not Available Not Available Not Available Qvar 40 mcg/actuati on Metered Aerosol oral inhaler Inhale 2 puffs as needed by inhalatio n route. active Not Available Not Available No t Available gabapentin 300 mg capsule Take 1 capsule 3 times a day by oral route. active Not Available Not Available No t Available montelukast 10 mg tablet active Not Available Not Available Not Available metoprolol succinate ER 25 mg tablet,exte nded release 24 hr Take 3 tablets every day by oral route. active Not Available Not Available No t Available epinephrine 0.3 mg/0.3 mL injection, auto-inject or active Not Available Not Available Not Available [place] 5 mg-325 mg tablet Take 1 tablet every 6 hours by oral route. 12/12 completed Not Available Not Available Not Available fludrocorti sone 0.1 mg tablet active Not Available Not Available Not Available dextroamphe tamine-amph etamine ER 25 mg 24hr capsule,ext end release 12/12 completed Not Available Not Available Not Available Denta 5000 Plus 1.1 % cream 12/12 completed Not Available Not Available Not Available ProAir HFA 90 mcg/actuati on aerosol inhaler active Not Available Not Available Not Available Xifaxan 550 mg tablet active Not Available Not Available No t Available Dymista 137 mcg-50 mcg/spray nasal spray active Not Available Not Available Not Available Qvar RediHaler 40 mcg/actuati on HFA breath activated aerosol active Not Available Not Available Not Available Vitals Date Recorded Body height Body mass index (BMI) Body weight Heart rate Systolic blood pressure Diastolic blood pressure Provider Name and Address Organization Details Last Updated DateTime 7 162.56 cm 22.1 kg/m2 39685.4 2 g 78 /min 110 mm[Hg] 75 mm[Hg] [facility] ADVICE CLERK 7 11:54:16 Date Recorded Body height Body mass index (BMI) Body weight Heart rate Systolic blood pressure Diastolic blood pressure Provider Name and Address Organization Details Last Updated DateTime 8 162.56 cm 22 kg/m2 16422.8 2 g 98 /min 108 mm[Hg] 74 mm[Hg] [facility] ADVICE CLERK 8 12:20:18 Date Recorded Body height Body mass index (BMI) Body weight Heart rate Systolic blood pressure Diastolic blood pressure Provider Name and Address Organization Details Last Updated DateTime 8 162.56 cm 21.6 kg/m2 05359.6 4 g 103 /min 106 mm[Hg] 69 mm[Hg] [facility] ADVICE CLERK 8 10:45:04 Date Recorded Body height Body mass index (BMI) Body weight Heart rate Systolic blood pressure Diastolic blood pressure Provider Name and Address Organization Details Last Updated DateTime 8 162.56 cm 20.1 kg/m2 74296.3 1 g 96 /min 108 mm[Hg] 72 mm[Hg] Reny Valentin [facility] ADVICE CLERK 8 16:30:41 Date Recorded Body height Body mass index (BMI) Body weight Heart rate Systolic blood pressure Diastolic blood pressure Provider Name and Address Organization Details Last Updated DateTime 9 162.56 cm 19.7 kg/m2 38169.1 2 g 95 /min 110 mm[Hg] 85 mm[Hg] Reny Valentin [facility] ADVICE CLERK 9 12:18:48 Social History Question Answer Notes LastModified by Organizat ion Details LastModified Time Tobacco Smoking Status Former Smoker Quit in December 2016 Not Available [facility] 09/08/2020 03:27:00 Do You Have An Advance Directive? Yes [id number] Information not available 09/08/2020 What Is Your Level Of Alcohol Consumption? None [id number] Information not available 09/08/2020 Is Blood Transfusion Acceptable In An Emergency? Yes [id number] Information not available 09/08/2020 What Is Your Level Of Caffeine Consumption? Occasional [id number] Information not available 09/08/2020 How Much Tobacco Do You Chew? None [id number] Information not available 09/08/2020 Are You Currently Employed? No [id number] Information not available 09/08/2020 Which Illicit Or Recreational Drugs Have You Used? None [id number] Information not available 09/08/2020 What Is Your Occupation? On Disability [id number] Information not available 09/08/2020 Live Alone Or With Others? With Others [email or web address] Information not available 08/03/2017 What Was The Date Of Your Most Recent Tobacco Screening? 11/28/2017 [id number] Information not available 09/08/2020 How Many Children Do You Have? 0 [id number] Information not available 09/08/2020 Performs Monthly Self-breast Exam? Yes [email or web address] Information not available 08/03/2017 What Is Your Relationship Status? [id number] Information not available 09/08/2020 Seat Belts Used Routinely Yes Information not available 08/03/2017 Are You Sexually Active? No [id number] Information not available 09/08/2020 How Much Tobacco Do You Smoke? No [id number] Information not available 09/08/2020 Do You Use Sunscreen Routinely? Yes [id number] Information not available 09/08/2020 Sex: Unknown Functional Status Question Answer Note LastModified by Organizat ion Details LastModified Time What is your exercise level? Occasional [id number] Information not available 09/08/2020 Mental Status None recorded. Family History Relationship Description Onset Age of this Age Resolved Age Notes LastModified by Organization Details LastModified Time Maternal Aunt Diabetes mellitus Not available 2016 13:09:34 Maternal Aunt Disorder of thyroid gland [email or web address] Not available 2016 13:09:50 Maternal Aunt Malignant tumor of cervix [email or web address] Not available 2016 13:10:02 Maternal Uncle Diabetes mellitus [email or web address] Not available 2016 13:09:34 Medical History Condition Response Arthritis/Lupus N Diabetes N Heart Problems N Hepatitis/Liver Disease N Infertility N Deep Vein Thrombosis/PE N Pelvic pain/Endometriosis N History of abnormal pap N Kidney or Bladder Problems/incontinence N Cancer N Thyroid Problems N Asthma Y Neurologic/Epilepsy N GI Problems/IBS Y Anemia N Accident/Trauma/Violence N Chronic pain/Fibromyalgia/pain contract Y Hematologic disorders N History of STI N anxiety/depression/psych problems Y Headaches/Migraines N Hypertension N Gynecological History Statement/Question Response Abnormal Pap N Sexually Active? Y STIs/STDs N N Date of Last Pap Smear 12/05/2016 Sexual Problems? N Current Control Method Ablation Obstetrics History GPAL:G 0 P 0 0 0 0 Past Encounters Encounter ID Performer Location Encounter Start Date Encounter Closed Date Diagnosis/Indication Diagnosis SNOMED-CT Code Diagnosis ICD10 Code Diagnosis Note [id number] Joe Lucas MD Main Office [address] [place] [address] 08/03/2017 12:59:28 08/04/2017 10:59:59 Menorrhagia 281459565 N92.0 [id number] Joe Lucas MD Main Office [address] [place] [address] 08/23/2017 12:21:43 08/23/2017 13:59:09 Menorrhagia 386182570 N92.0 Discussed options: medication s, depo provera, IUD, repeat ablation, hysterecto my - she is considerin g her options. [id number] Joe Lucas MD Main Office [address] [place] [address] 10/03/2017 11:21:20 10/03/2017 12:02:04 Menorrhagia 726360819 N92.0 Plan robotic TLH, bilateral salpingect samina. [id number] Joe Lucas MD Main Office [address] [place] [address] 10/18/2017 12:07:39 10/18/2017 12:49:57 Constipation 85988360 K59.00 [id number] Bree Polk Main Office [address] [place] [address] 10/23/2017 13:41:13 10/24/2017 18:18:33 Pain in pelvis 69038791 R10.2 Refill given for [place]. Incisions healing well, tape removed. Pt states that she has a sensitivit y to medical adhesive, suspect majority of discomfort and itching may be from this. No signs of infection today. [id number] Joe Lucas MD Main Office [address] [place] [address] 11/02/2017 11:45:31 11/27/2017 22:50:27 Menorrhagia 029876694 N92.0 Doiing well after BEN and repair of left common iliac Varees needle injury. I have rec to not start new medication s that may impact her imune system until 8 weeks post op. [id number] Joe Lucas MD Main Office [address] [place] [address] 11/09/2017 12:14:25 11/09/2017 12:45:39 Abdominal pain 56206153 R10.9 Suspect a popped stitch. [id number] Joe Lucas MD Main Office [address] [place] [address] 11/28/2017 10:37:01 11/28/2017 12:00:46 Menorrhagia 999549426 N92.0 Doing well. [place]. [id number] Bree Polk Main Office [address] [place] [address] 10/10/2018 16:14:55 10/10/2018 17:26:26 High risk sexual behavior 804380159 Z72.51 Pt requests full STD screen. [place]n. [id number] Bree Polk Main Office [address] [place] [address] 12/12/2018 11:54:03 12/12/2018 12:53:35 High risk sexual behavior 615971643 Z72.51 Will check for STDs. Advised pt that HIV can sometimes take 6 months to be positive, recommend retesting in 6 months if desired. Health Concerns Section Related Observation LastModified by Organization Detai ls LastModified Time None Recorded Concern Status LastModified by Organization Details LastModified Time None Recorded Advance Directives Directive Y: Payers Encounter Date Sequence Insurance Name Policy Number Policy Barnett Covered Member ID Barnett Member ID Guarantor Name 11/02/2017 1 MEDICARE B-CO: [employer] Roshni Mohrett [id number] 1 Roshni Bj 11/02/2017 2 MEDICAID-[place]: [facility] Roshni Mohrett [id number] Roshni Bj 11/09/2017 1 MEDICARE B-CO: [employer] Roshni Mohrett [id number] 1 Roshni Bj 11/09/2017 2 MEDICAID-[place]: [facility] Roshni Bj [id number] Roshni Bj 11/28/2017 1 MEDICARE B-CO: [employer] Roshni Mohrett [id number] 1 Roshni Bj 11/28/2017 2 MEDICAID-[place]: [facility] Roshni Bj [id number] Roshni Bj 10/10/2018 1 MEDICARE B-CO: [employer] Roshni Hope Bj [id number] 1 Roshni Bj 10/10/2018 2 MEDICAID-[place]: [facility] Roshni Bj [id number] Roshni Bj 12/12/2018 1 MEDICARE B-CO: [employer] Roshni Mohrett [id number] 1 Roshni Bj 12/12/2018 2 MEDICAID-[place]: [facility] Roshni Mohrett [id number] Roshni Bj Notes Date Note Type Note Provider Name and Address Organization Details Recorded Time 11/02/2017 text/html S/p BEN and bilateral saplings to my. Had introspective perforation of the left common iliac. Doing very well. No complaints. Joe Lucas MD [address], [place], [address], [facility] ADVICE CLERK 11/09/2017 07:21:37 11/09/2017 text/html Reports a po eddie nd and tenderness of the right superior aspect of the abdominal incision. No bruising. No erythema. Starting to feel better. Reviewed path - benign. Joe Lucas MD [address], [place], [address], [facility] ADVICE CLERK 11/09/2017 12:35:09 11/28/2017 text/html S/P BEN, stephan al salpingectomy. No complaints. No vasomotor symptoms. Joe Lucas MD [address], [place], [address], [facility] ADVICE CLERK 11/28/2017 11:09:44 10/10/2018 text/html Pt presents for STD testing. Pt states that there was some cheating involved and she would like to be tested for everything. Pt denies any symptoms such as abnormal bleeding, discharge, odor, itching, dysuria. Bree reynolds [place] Herrera [facility] ADVICE CLERK 10/10/2018 19:08:06 12/12/2018 text/html Pt here today because the mary ann that she was seeing had a girlfriend who said that she had syphilis. Pt has not spoken the with mary ann and states that they were last intimate about 1.5 weeks ago. Pt denies any symptoms, such as an ulcer. Pt denies any pain, abnormal bleeding, discharge, odor, or itching. Pt would like to get tested for everything. CARLINE Jensen [facility] ADVICE CLERK 12/12/2018 15:21:47 OBGyn Episode No OBEpisode recorded.
--- OUTSIDE RECORDS SUMMARY | 2024-12-31 16:37 | XMS_ITS | Encounter Summary ---
Author Organization [facility] Address [address] [place] [address] Care Team Providers Care Job Printer Name Role Phone Nathanael Alfredo MD Primary Care Provider + [phone] Jarrett Huff MD Unavailable [phone] Tash Enrique Unavailable + [phone] Angelito Ruelas MD Unavailable + [phone] Wesley Grover MD Primary Care Provider [phone] Jassi Oseguera Unavailable Encounter Details Date Type Department Care Team (Late st Contact Info) Description 10/19/2020 Scanned Document [facility] Neurology [address] [place] [phone] Jarrett Huff MD [address] [place] [address] [address] [place] [address] Social History Tobacco Use Types [...] Description 01/23/2025 11:20 AM EDT Office Visit [facility] Neurology [place] [address] [address] Jose Angel Bishop, DEAL ARCHITECT [address] [address] documented as of this encounter Visit Diagnoses Not on filedocumented in this encounter Care Teams Job Printer Relationship Specialty Start Date End Date Nathanael Alfredo MD [address] [place] [address] PCP - General Internal Medicine 03/06/19 07/22/21 Wesley Grover MD [address] [place] [address] PCP - General Internal Medicine 07/23/21 Jarrett Huff MD [address] [address] Physician Neurology 02/26/20 Tash Enrique PA [address] [address] Consulting Provider Neurology 02/26/20 10/11/21 Angelito Ruelas MD [address] [place] [address] Consulting Provider Pulmonary Medicine 02/05/21 Jassi Oseguera [address] [place] [address] [address] [place] [address] Physician Pulmonary Medicine 09/27/22 Pricilla Hester MD Psychiatrist 05/11/20 DO KIMBERLY Rooney: [facility] Consulting Provider Allergy 10/12/21 documented as of this encounter
--- OUTSIDE RECORDS SUMMARY | 2024-12-31 16:37 | XMS_ITS | Encounter Summary ---
Author Organization [facility] Address [address] [place] [address] Care Team Providers Care Provider Network Manager Name Role Phone Nathanael Alfredo MD Primary Care Provider + [phone] Jarrett Huff MD Unavailable [phone] Tash Enrique Unavailable + [phone] Angelito Ruelas MD Unavailable + [phone] Wesley Grover MD Primary Care Provider [phone] Jassi Oseguera Unavailable Encounter Details Date Type Department Care Team (Late st Contact Info) Description 05/29/2020 Scanned Document [facility] Neurology [address] [place] [phone] Jarrett Huff MD [address] [place] [address] [address] [place] [address] Social History Tobacco Use Types [...] Description 01/23/2025 11:20 AM EDT Office Visit [facility] Neurology [place] [address] [address] Jose Angel Bishop, OUT PATIENT THERAPIST [address] [address] documented as of this encounter Visit Diagnoses Not on filedocumented in this encounter Care Teams Provider Network Manager Relationship Specialty Start Date End Date Nathanael Alfredo MD 131 [place] [address] PCP - General Internal Medicine 03/06/19 07/22/21 Wesley Grover MD [address] [place] [address] PCP - General Internal Medicine 07/23/21 Jarrett Huff MD [address] [address] Physician Neurology 02/26/20 Tash Enrique PA [address] [address] Consulting Provider Neurology 02/26/20 10/11/21 Angelito Ruelas MD [address] [place] [address] Consulting Provider Pulmonary Medicine 02/05/21 Jassi Oseguera [address] [place] [address] [address] [place] [address] Physician Pulmonary Medicine 09/27/22 Pricilla Hester MD Psychiatrist 05/11/20 DO KIMBERLY Rooney: [facility] Consulting Provider Allergy 10/12/21 documented as of this encounter
--- OUTSIDE RECORDS SUMMARY | 2024-12-31 16:37 | XMS_ITS | Encounter Summary ---
Author Organization [facility] Address [address] [place] [address] Care Team Providers Care Objects Conservator Name Role Phone Jarrett Huff MD Unavailable Angelito Ruelas MD Unavailable [phone] Wesley Grover MD Primary Care Provider Jassi Oseguera Unavailable Encounter Details Date Type Department Care Team (Late st Contact Info) Description 11/14/2021 Scanned Document [facility] Neurology [address] [phone] Jarrett Huff MD 35 [facility] [address] [place] [address] Social History Tobacco Use Types Packs/Day Years [...] 11:20 AM EDT Office Visit [facility] Neurology [place] 280 [facility] 102 [place] [address] Jose Angel Bishop APRN 280 [facility] 102 [place] [address] documented as of this encounter Visit Diagnoses Not on filedocumented in this encounter Care Teams Objects Conservator Relationship Specialty Start Date End Date Wesley Grover MD [address] [place] [address] 101 [place] [address] PCP - General Internal Medicine 07/23/21 Jarrett Huff MD [address] [address] Physician Neurology 02/26/20 Angelito Ruelas MD [address] [place] [address] Consulting Provider Pulmonary Medicine 02/05/21 Jassi Oseguera [address] [place] [address] [address] [place] [address] Physician Pulmonary Medicine 09/27/22 Pricilla Hester MD Psychiatrist 05/11/20 DO KIMBERLY Rooney: [facility] Consulting Provider Allergy 10/12/21 documented as of this encounter
--- OUTSIDE RECORDS SUMMARY | 2024-12-31 16:37 | XMS_ITS | Encounter Summary ---
Author Organization [facility] Address [address] [place] [address] Care Team Providers Care Supervising Nurse Name Role Phone Jarrett Huff MD Unavailable [phone] Wesley Grover MD Primary Care Provider Jassi Oseguera Unavailable Encounter Details Date Type Department Care Team (Late st Contact Info) Description 03/02/2023 Scanned Document [facility] Neurology [address] [place] [address] Jarrett Huff MD [address] [place] [address] [address] [place] [phone] Social History Tobacco Use Types Packs/Day Years [...] Description 01/23/2025 11:20 AM EDT Office Visit [facility] Neurology [place] [address] [address] Jose Angel Bishop APRN 280 [facility] 102 [place] [address] documented as of this encounter Visit Diagnoses Not on filedocumented in this encounter Care Teams Supervising Nurse Relationship Specialty Start Date End Date Wesley Grover MD [address] [place] [address] 101 [place] [address] PCP - General Internal Medicine 07/23/21 Jarrett Huff MD [address] [address] Physician Neurology 02/26/20 Jassi Oseguera [address] [place] [address] [address] [place] [address] Physician Pulmonary Medicine 09/27/22 Pricilla Hester MD Psychiatrist 05/11/20 DO KIMBERLY Rooney: [facility] Consulting Provider Allergy 10/12/21 documented as of this encounter
--- OUTSIDE RECORDS SUMMARY | 2024-12-31 16:37 | XMS_ITS | Encounter Summary ---
Author Organization [facility] Address [address] [place] [address] Care Team Providers Care Lobster Fisherman Name Role Phone Jarrett Huff MD Unavailable Angelito Ruelas MD Unavailable [phone] Wesley Grover MD Primary Care Provider [phone] Jassi Oseguera Unavailable Encounter Details Date Type Department Care Team (Late Contact Info) Description 11/24/2021 Scanned Document [facility] Neurology [address] [place] [address] Jarrett Huff MD 35 [facility] [address] [place] [address] Social History Tobacco Use Types Packs/Day Years [...] Encounters Date Type Department Care Team (Late Contact Info) Description 01/23/2025 11:20 AM EDT Office Visit [facility] Neurology [place] [address] [phone] Jose Angel Bishop APRN 280 [facility] 102 [place] [address] documented as of this encounter Visit Diagnoses Not on filedocumented in this encounter Care Teams Lobster Fisherman Relationship Specialty Start Date End Date Reilly, Wesley Clemens MD [address] [place] [address] 101 [place] [address] PCP - General Internal Medicine 07/23/21 Jarrett Huff MD [address] [address] Physician Neurology 02/26/20 Angelito Ruelas MD [address] [place] [address] Consulting Provider Pulmonary Medicine 02/05/21 Jassi Oseguera [address] [place] [address] [address] [place] [address] Physician Pulmonary Medicine 09/27/22 Pricilla Hester MD Psychiatrist 05/11/20 DO KIMBERLY Rooney: [facility] Consulting Provider Allergy 10/12/21 documented as of this encounter
--- OUTSIDE RECORDS SUMMARY | 2024-12-31 16:37 | XMS_ITS | Encounter Summary ---
Author Organization [facility] Address [address] [place] [address] Care Team Providers Care Plan Manager Name Role Phone Jarrett Huff MD Unavailable Angelito Ruelas MD Unavailable [phone] Wesley Grover MD Primary Care Provider [phone] Jassi Oseguera Unavailable Encounter Details Date Type Department Care Team (Late st Contact Info) Description 07/20/2022 Scanned Document [facility] Neurology [address] [phone] Jarrett Huff MD 35 [facility] [address] [place] [address] Social History Tobacco Use Types Packs/Day Years [...] Exposure Response Date Recorded In the last 10 days, have yo u been in contact with someone who was confirmed or suspected to have Coronavirus/COVID-19? No / Unsure 07/05/2022 10:01 AM EDT documented as of this encounter Plan of Treatment Upcoming Encounters Date Type Department Care Team ([facility] st Contact Info) Description 01/23/2025 11:20 AM EDT Office Visit [facility] Neurology [place] [address] [phone] Jose Angel Bishop, CONTROLS ENGINEER 280 [facility] 102 [place] [address] documented as of this encounter Visit Diagnoses Not on filedocumented in this encounter Care Teams Plan Manager Relationship Specialty Start Date End Date Wesley Grover MD [address] [place] [address] PCP - General Internal Medicine 07/23/21 Jarrett Huff MD [address] [place] [address] Physician Neurology 02/26/20 Angelito Ruelas MD [address] [place] [address] Consulting Provider Pulmonary Medicine 02/05/21 Jassi Oseguera [address] [place] [address] # [address] [place] [address] Physician Pulmonary Medicine 09/27/22 Pricilla Hester MD Psychiatrist 05/11/20 DO KIMBERLY Rooney: [facility] Consulting Provider Allergy 10/12/21 documented as of this encounter
--- OUTSIDE RECORDS SUMMARY | 2024-12-31 16:37 | XMS_ITS | Encounter Summary ---
Author Organization [facility] Address [address] [place] [address] Care Team Providers Care Associate Programmer Name Role Phone Nathanael Alfredo MD Primary Care Provider + [phone] Jarrett Huff MD Unavailable [phone] Tash Enrique Unavailable + [phone] Angelito Ruelas MD Unavailable + [phone] Wesley Grover MD Primary Care Provider [phone] Jassi Oseguera Unavailable Encounter Details Date Type Department Care Team (Late st Contact Info) Description 11/30/2020 Scanned Document [facility] Neurology [address] [address] Jarrett Huff MD [address] [place] [address] [address] [place], [place] [phone] Social History Tobacco Use Types Packs/Day Years [...] have Coronavirus / COVID-19? No / Unsure 11/12/2020 11:02 AM EST documented as of this encounter Plan of Treatment Upcoming Encounters Date Type Department Care Team (Late st Contact Info) Description 01/23/2025 11:20 AM EDT Office Visit [facility] Neurology [place] [address] [phone] Jose Angel Bishop, APPOINTMENT SCHEDULER [address] [address] documented as of this encounter Visit Diagnoses Not on filedocumented in this encounter Care Teams Associate Programmer Relationship Specialty Start Date End Date Nathanael Alfredo MD 131 [place] [address] PCP - General Internal Medicine 03/06/19 07/22/21 Wesley Grover MD [address] [place] [address], [place] [address] PCP - General Internal Medicine 07/23/21 Jarrett Huff MD [address] [place] [address] Physician Neurology 02/26/20 Tash Enrique PA [address] [address] Consulting Provider Neurology 02/26/20 10/11/21 Angelito Ruelas MD [address] [place] [address] Consulting Provider Pulmonary Medicine 02/05/21 Jassi Oseguera [address] [facility] [address] [place] [address] Physician Pulmonary Medicine 09/27/22 Pricilla Hester MD Psychiatrist 05/11/20 DO KIMBERLY Rooney: [facility] Consulting Provider Allergy 10/12/21 documented as of this encounter
--- OUTSIDE RECORDS SUMMARY | 2024-12-31 16:37 | XMS_ITS | Encounter Summary ---
Author Organization [facility] Address [address] [place] [address] Care Team Providers Care Produce Laborer Name Role Phone Nathanael Alfredo MD Primary Care Provider + [phone] Jarrett Huff MD Unavailable [phone] Tash Enrique Unavailable + [phone] Angelito Ruelas MD Unavailable + [phone] Wesley Grover MD Primary Care Provider [phone] Jassi Oseguera Unavailable Encounter Details Date Type Department Care Team (Late st Contact Info) Description 06/07/2021 Scanned Document [facility] Neurology [address] [address] Jarrett Huff MD [address] [place] [address] [address] [place], [place] [phone] Social History Tobacco Use Types Packs/Day Years [...] 01/23/2025 11:20 AM EDT Office Visit [facility] Neurology [place] [address] [address] Jose Angel Bishop, FEDE [address] [address] documented as of this encounter Visit Diagnoses Not on filedocumented in this encounter Care Teams Produce Laborer Relationship Specialty Start Date End Date Nathanael Alfredo MD 131 [place] [address] PCP - General Internal Medicine 03/06/19 07/22/21 Wesley Grover MD [address] [place] [address] PCP - General Internal Medicine 07/23/21 Jarrett Huff MD [address] [address] Physician Neurology 02/26/20 Tash Enrique PA [address] [address] Consulting Provider Neurology 02/26/20 10/11/21 Angelito Ruelas MD [address] [place] [address] Consulting Provider Pulmonary Medicine 02/05/21 Jassi Oseguera [address] [place] [address] # [address] [place] [address] Physician Pulmonary Medicine 09/27/22 Pricilla Hester MD Psychiatrist 05/11/20 DO KIMBERLY Rooney: [facility] Consulting Provider Allergy 10/12/21 documented as of this encounter
--- OUTSIDE RECORDS SUMMARY | 2024-12-31 16:37 | XMS_ITS | Encounter Summary ---
Author Organization [facility] Address [address] [place] [address] Care Team Providers Care Pediatric Geneticist Name Role Phone Jarrett Huff MD Unavailable [phone] Tash Enrique Unavailable [phone] Angelito Ruelas MD Unavailable + [phone] Wesley Grover MD Primary Care Provider [phone] Jassi Oseguera Unavailable Encounter Details Date Type Department Care Team (Late st Contact Info) Description 09/23/2021 Scanned Document [facility] Neurology [address] [phone] Jarrett Huff MD 35 [facility] [address] [place] [address] Social History Tobacco Use Types [...] Description 01/23/2025 11:20 AM EDT Office Visit [facility] Neurology [place] 280 [facility] 102 [place] [address] Jose Angel Bishop, FEDE 280 [facility] 102 [place] [address] documented as of this encounter Visit Diagnoses Not on filedocumented in this encounter Care Teams Pediatric Geneticist Relationship Specialty Start Date End Date Wesley Grover MD [address] [place] [address] 101 [place] [address] PCP - General Internal Medicine 07/23/21 Jarrett Huff MD [address] [address] Physician Neurology 02/26/20 Tash Enrique PA 69 [facility] 300 [place] [address] Consulting Provider Neurology 02/26/20 10/11/21 Angelito Ruelas MD [address] [place] [address] Consulting Provider Pulmonary Medicine 02/05/21 Jassi Oseguera [address] [place] [address] [id number] [place] [address] Physician Pulmonary Medicine 09/27/22 Pricilla Hester MD Psychiatrist 05/11/20 DO KIMBERLY Rooney: [facility] Consulting Provider Allergy 10/12/21 documented as of this encounter
--- OUTSIDE RECORDS SUMMARY | 2024-12-31 16:37 | XMS_ITS | Encounter Summary ---
Author Organization [facility] Address 100 [place] [address] Care Team Providers Care Insurance Claim Auditor Name Role Phone Nathanael Alfredo MD Primary Care Provider + [phone] Jarrett Huff MD Unavailable [phone] Tash Enrique Unavailable + [phone] Angelito Ruelas MD Unavailable + [phone] Wesley Grover MD Primary Care Provider [phone] Jassi Oseguera Unavailable Encounter Details Date Type Department Care Team (Late st Contact Info) Description 01/01/2020 Scanned Document [facility] Neurology [address] [address] Jarrett Huff MD [address] [place] [address] [address] [place], [place] [address] Social History Tobacco Use Types Packs/Day Years [...] 11:20 AM EDT Office Visit [facility] Neurology [place] [address] [address] Jose Angel Bishop, FEDE [address] [address] documented as of this encounter Visit Diagnoses Not on filedocumented in this encounter Care Teams Insurance Claim Auditor Relationship Specialty Start Date End Date Nathanael Alfredo MD 131 [place] [address] PCP - General Internal Medicine 03/06/19 07/22/21 Wesley Grover MD [address] [place] [address] PCP - General Internal Medicine 07/23/21 Jarrett Huff MD [address] [address] Physician Neurology 02/26/20 Tash Enrique PA [address] [phone] Consulting Provider Neurology 02/26/20 10/11/21 Angelito Ruelas MD [address] [place] [address] [id number] Consulting Provider Pulmonary Medicine 02/05/21 Jassi Oseguera [address] [place] [address] [id number] [place] [address] Physician Pulmonary Medicine 09/27/22 Pricilla Hester MD Psychiatrist 05/11/20 DO KIMBERLY Rooney: [facility] [place] Consulting Provider Allergy 10/12/21 documented as of this encounter
--- OUTSIDE RECORDS SUMMARY | 2024-12-31 16:37 | XMS_ITS | Encounter Summary ---
Author Organization [facility] Address [address] [place] [address] Care Team Providers Care Policy Director Name Role Phone Jarrett Huff MD Unavailable [phone] Wesley Grover MD Primary Care Provider Jassi Oseguera Unavailable Encounter Details Date Type Department Care Team (Late st Contact Info) Description 10/28/2022 Scanned Document [facility] Neurology [address] [address] Jarrett Huff MD [address] [place] [address] [address] [place] [address] Social History Tobacco Use Types Packs/Day Years [...] 01/23/2025 11:20 AM EDT Office Visit [facility] Neurology [place] [address] [address] Jose Angel Bishop APRN 280 [facility] 102 [place] [address] documented as of this encounter Visit Diagnoses Not on filedocumented in this encounter Care Teams Policy Director Relationship Specialty Start Date End Date Wesley Grover MD [address] [place] [address] 101 [place] [address] PCP - General Internal Medicine 07/23/21 Jarrett Huff MD [address] [address] Physician Neurology 02/26/20 Jassi Oseguera [address] [place] [address] [address] [place] [address] Physician Pulmonary Medicine 09/27/22 Pricilla Hester MD Psychiatrist 05/11/20 DO KIMBERLY Rooney: [facility] [place] Consulting Provider Allergy 10/12/21 documented as of this encounter
--- OUTSIDE RECORDS SUMMARY | 2024-12-31 16:37 | XMS_ITS | Encounter Summary ---
Author Organization [facility] Address 100 [place] [address] Care Team Providers Care Jack Prizer Name Role Phone Nathanael Alfredo MD Primary Care Provider + [phone] Jarrett Huff MD Unavailable [phone] Tash Enrique Unavailable + [phone] Angelito Ruelas MD Unavailable + [phone] Wesley Grover MD Primary Care Provider [phone] Jassi Oseguera Unavailable Encounter Details Date Type Department Care Team (Late st Contact Info) Description 07/09/2021 Scanned Document [facility] Neurology [address] [address] Jarrett Huff MD [address] [place] [address] [address] [place], [place] [id number] Social History Tobacco Use Types Packs/Day Years [...] Description 01/23/2025 11:20 AM EDT Office Visit [facility] Neurology [place] [address] [address] Jose Angel Bishop, FEDE [address] [address] documented as of this encounter Visit Diagnoses Not on filedocumented in this encounter Care Teams Jack Prizer Relationship Specialty Start Date End Date Nathanael Alfredo MD 131 [place] [address] PCP - General Internal Medicine 03/06/19 07/22/21 Wesley Grover MD [address] [place] [address] PCP - General Internal Medicine 07/23/21 Jarrett Huff MD [address] [address] Physician Neurology 02/26/20 Tash Enrique PA [address] [address] Consulting Provider Neurology 02/26/20 10/11/21 Angelito Ruelas MD [address] [place] [address] Consulting Provider Pulmonary Medicine 02/05/21 Jassi Oseguera [address] [place] [address] [id number] [place] [address] Physician Pulmonary Medicine 09/27/22 Pricilla Hester MD Psychiatrist 05/11/20 DO KIMBERLY Rooney: [facility] Consulting Provider Allergy 10/12/21 documented as of this encounter
--- OUTSIDE RECORDS SUMMARY | 2024-12-31 16:37 | XMS_ITS | Encounter Summary ---
Author Organization [facility] Address 100 [place] [address] Care Team Providers Care Cloud Security Architect Name Role Phone Nathanael Alfredo MD Primary Care Provider + [phone] Jarrett Huff MD Unavailable [phone] Tash Enrique Unavailable + [phone] Angelito Ruelas MD Unavailable + [phone] Wesley Grover MD Primary Care Provider [phone] Jassi Oseguera Unavailable Encounter Details Date Type Department Care Team (Late st Contact Info) Description 12/18/2019 Scanned Document [facility] Neurology [address] [address] Jarrett Huff MD [address] [place] [address] [address] [place], [place] 0[address] Social History Tobacco Use Types Packs/Day Years [...] EDT Office Visit [facility] Neurology [place] [address] [address] Jose Angel Bishop, FEDE [address] [address] documented as of this encounter Visit Diagnoses Not on filedocumented in this encounter Care Teams Cloud Security Architect Relationship Specialty Start Date End Date Nathanael Alfredo MD 131 [place] [address] PCP - General Internal Medicine 03/06/19 07/22/21 Wesley Grover MD [address] [place] [address] PCP - General Internal Medicine 07/23/21 Jarrett Huff MD [address] [address] Physician Neurology 02/26/20 Tash Enrique PA [address] 985730 Consulting Provider Neurology 02/26/20 10/11/21 Angelito Ruelas MD [address] [place] [id number] Consulting Provider Pulmonary Medicine 02/05/21 Jassi Oseguera [address] [place] [address] # [address] [place] [address] Physician Pulmonary Medicine 09/27/22 Pricilla Hester MD Psychiatrist 05/11/20 DO KIMBERLY Rooney: [facility] [place] Consulting Provider Allergy 10/12/21 documented as of this encounter
--- OUTSIDE RECORDS SUMMARY | 2024-12-31 16:37 | XMS_ITS | Encounter Summary ---
Author Organization [facility] Address [address] [place] [address] Care Team Providers Care Exercise Rider Name Role Phone Jarrett Huff MD Unavailable Angelito Ruelas MD Unavailable [phone] Wesley Grover MD Primary Care Provider Jassi Oseguera Unavailable Encounter Details Date Type Department Care Team (Late st Contact Info) Description 07/04/2022 Scanned Document [facility] Neurology [address] 2139[address] Jarrett Huff MD 35 [facility] [address] [place] [address] Social History Tobacco Use Types Packs/Day Years [...] Upcoming Encounters Date Type Department Care Team ([facility] st Contact Info) Description 01/23/2025 11:20 AM EDT Office Visit [facility] Neurology [place] [address] [address] Jose Angel Bishop, DIVIDEND CLERK 280 [facility] 102 [place] [address] documented as of this encounter Visit Diagnoses Not on filedocumented in this encounter Care Teams Exercise Rider Relationship Specialty Start Date End Date Wesley Grover MD [address] [place] [address] PCP - General Internal Medicine 07/23/21 Jarrett Huff MD [address] [place] [address] Physician Neurology 02/26/20 Angelito Ruelas MD [address] [place] [address] Consulting Provider Pulmonary Medicine 02/05/21 Jassi Oseguera [address] [place] [address] # [address] [place] [address] Physician Pulmonary Medicine 09/27/22 Pricilla Hester MD Psychiatrist 05/11/20 DO KIMBERLY Rooney: [facility] Consulting Provider Allergy 10/12/21 documented as of this encounter
--- OUTSIDE RECORDS SUMMARY | 2024-12-31 16:37 | XMS_ITS | Encounter Summary ---
Author Organization [facility] Address [address] [place] [address] Care Team Providers Care Pelletizer Tender Name Role Phone Jarrett Huff MD Unavailable [phone] Wesley Grover MD Primary Care Provider [phone] Jassi Oseguera Unavailable Encounter Details Date Type Department Care Team (Late st Contact Info) Description 03/03/2023 Scanned Document [facility] Neurology [address] [place] [address] Jarrett Huff MD [address] [place] [address] [address] [place] [phone] Social History Tobacco Use Types Packs/Day Years [...] AM EDT Office Visit [facility] Neurology [place] [address] [address] Jose Angel Bishop APRN 280 [facility] 102 [place] [address] documented as of this encounter Visit Diagnoses Not on filedocumented in this encounter Care Teams Pelletizer Tender Relationship Specialty Start Date End Date Wesley Grover MD [address] [place] [address] 101 [place] [address] PCP - General Internal Medicine 07/23/21 Jarrett Huff MD [address] [address] Physician Neurology 02/26/20 Jassi Oseguera [address] [place] [address] # [address] [place] [address] Physician Pulmonary Medicine 09/27/22 Pricilla Hester MD Psychiatrist 05/11/20 DO KIMBERLY Rooney: [facility] [place] Consulting Provider Allergy 10/12/21 documented as of this encounter
--- OUTSIDE RECORDS SUMMARY | 2024-12-31 16:37 | XMS_ITS | Encounter Summary ---
Author Organization [facility] Address [address] [place] [address] Care Team Providers Care Senior Media Director Name Role Phone Jarrett Huff MD Unavailable Angelito Ruelas MD Unavailable [phone] Wesley Grover MD Primary Care Provider Jassi Oseguera Unavailable Encounter Details Date Type Department Care Team (Late st Contact Info) Description 12/06/2021 Scanned Document [facility] Neurology [address] [address] Jarrett Huff MD 35 [facility] [address] [place] [address] Social History Tobacco Use Types Packs/Day Years [...] Description 01/23/2025 11:20 AM EDT Office Visit [facility] Neurology [place] 280 [facility] 102 [place] [address] Jose Angel Bishop APRN 280 [facility] 102 [place] [address] documented as of this encounter Visit Diagnoses Not on filedocumented in this encounter Care Teams Senior Media Director Relationship Specialty Start Date End Date Wesley Grover MD [address] [place] [address] 101 [place] [address] PCP - General Internal Medicine 07/23/21 Jarrett Huff MD [address] [address] Physician Neurology 02/26/20 Angelito Ruelas MD [address] [place] [address] Consulting Provider Pulmonary Medicine 02/05/21 Jassi Oseguera [address] [place] [address] # [id number] [place] [address] Physician Pulmonary Medicine 09/27/22 Pricilla Hester MD Psychiatrist 05/11/20 DO KIMBERLY Rooney: [facility] [place] Consulting Provider Allergy 10/12/21 documented as of this encounter
--- OUTSIDE RECORDS SUMMARY | 2024-12-31 16:37 | XMS_ITS | Encounter Summary ---
Author Organization [facility] Address 100 [place] [address] Care Team Providers Care Alternative Energy Engineer Name Role Phone Nathanael Alfredo MD Primary Care Provider + [phone] Jarrett Huff MD Unavailable [phone] Tash Enrique Unavailable + [phone] Angelito Ruelas MD Unavailable + [phone] Wesley [place] MD Primary Care Provider [phone] Jassi Oseguera Unavailable Encounter Details Date Type Department Care Team (Late st Contact Info) Description 11/08/2019 Scanned Document [facility] Neurology [address] [address] Jarrett Huff MD [address] [place] [address] [address] [place], [place] 9[address] Social History Tobacco Use Types Packs/Day Years [...] Description 01/23/2025 11:20 AM EDT Office Visit [facility] Neurology [place] [address] [address] Jose Angel Bishop, FEDE [address] [address] documented as of this encounter Visit Diagnoses Not on filedocumented in this encounter Care Teams Alternative Energy Engineer Relationship Specialty Start Date End Date Nathanael Alfredo MD 131 [place] [address] PCP - General Internal Medicine 03/06/19 07/22/21 Wesley Grover MD [address] [place] [address] PCP - General Internal Medicine 07/23/21 Jarrett Huff MD [address] [address] Physician Neurology 02/26/20 Tash Enrique PA [address] 122[address] Consulting Provider Neurology 02/26/20 10/11/21 Angelito Ruelas MD [address] [place] [phone] Consulting Provider Pulmonary Medicine 02/05/21 Jassi Oseguera [address] [place] [address] # [address] [place] [address] Physician Pulmonary Medicine 09/27/22 Pricilla Hester MD Psychiatrist 05/11/20 DO KIMBERLY Rooney: [facility] [place] Consulting Provider Allergy 10/12/21 documented as of this encounter
--- OUTSIDE RECORDS SUMMARY | 2024-12-31 16:37 | XMS_ITS | Encounter Summary ---
Author Organization [facility] Address [address] [place] [address] Care Team Providers Care Stock Wetter Name Role Phone Nathanael Alfredo MD Primary Care Provider + [phone] Jarrett Huff MD Unavailable [phone] Tash Enrique Unavailable + [phone] Angelito Ruelas MD Unavailable + [phone] Wesley [place] MD Primary Care Provider [phone] Jassi Oseguera Unavailable Encounter Details Date Type Department Care Team (Late st Contact Info) Description 02/17/2021 Scanned Document [facility] Neurology [address] [address] Jarrett Huff MD [address] [place] [address] [address] [place], [place] [phone] Social History Tobacco Use Types Packs/Day Years [...] have Coronavirus / COVID-19? No / Unsure 02/05/2021 11:27 AM EDT documented as of this encounter Plan of Treatment Upcoming Encounters Date Type Department Care Team (Late st Contact Info) Description 01/23/2025 11:20 AM EDT Office Visit [facility] Neurology [place] [address] [address] Jose Angel Bishop, ELECTRICAL CONSTRUCTION PROJECT MANAGER [address] [address] documented as of this encounter Visit Diagnoses Not on filedocumented in this encounter Care Teams Stock Wetter Relationship Specialty Start Date End Date Nathanael Alfredo MD 131 [place] [address] PCP - General Internal Medicine 03/06/19 07/22/21 Wesley [place] MD [address] [place] [address] PCP - General Internal Medicine 07/23/21 Jarrett Huff MD [address] [place] [address] Physician Neurology 02/26/20 Tash Enrique PA [address] [address] Consulting Provider Neurology 02/26/20 10/11/21 Angelito Ruelas MD [address] [place] [address] Consulting Provider Pulmonary Medicine 02/05/21 Jassi Oseguera 263 [facility] [address] [place] [address] Physician Pulmonary Medicine 09/27/22 Pricilla Hester MD Psychiatrist 05/11/20 DO KIMBERLY Rooney: [facility] [place] Consulting Provider Allergy 10/12/21 documented as of this encounter
--- OUTSIDE RECORDS SUMMARY | 2024-12-31 16:37 | XMS_ITS | Encounter Summary ---
Author Organization [facility] Address [address] [place] [address] Care Team Providers Care Pecan Mallow Dipper Name Role Phone Nathanael Alfredo MD Primary Care Provider + [phone] Jarrett Huff MD Unavailable [phone] Tash Enrique Unavailable + [phone] Angelito Ruelas MD Unavailable + [phone] Wesley [place] MD Primary Care Provider [phone] Jassi Oseguera Unavailable Encounter Details Date Type Department Care Team (Late st Contact Info) Description 07/09/2021 Scanned Document [facility] Neurology [address] [place] [address] Jarrett Huff MD [address] [place] [address] [address] [place] [address] Social History Tobacco Use Types [...] Description 01/23/2025 11:20 AM EDT Office Visit [facility] Neurology [place] [address] [address] Jose Angel Bishop, QUARTZ ORIENTATOR [address] [address] documented as of this encounter Visit Diagnoses Not on filedocumented in this encounter Care Teams Pecan Mallow Dipper Relationship Specialty Start Date End Date Nathanael Alfredo MD 131 [place] [address] PCP - General Internal Medicine 03/06/19 07/22/21 Wesley [place] MD [address] [place] [address] PCP - General Internal Medicine 07/23/21 Jarrett Huff MD [address] [place] [address] Physician Neurology 02/26/20 Tash Enrique PA [address] [address] Consulting Provider Neurology 02/26/20 10/11/21 Angelito Ruelas MD [address] [place] [address] [id number] Consulting Provider Pulmonary Medicine 02/05/21 Jassi Oseguera [address] [place] [address] # [address] [place] [address] Physician Pulmonary Medicine 09/27/22 Pricilla Hester MD Psychiatrist 05/11/20 DO KIMBERLY Rooney: [facility] Consulting Provider Allergy 10/12/21 documented as of this encounter
--- OUTSIDE RECORDS SUMMARY | 2024-12-31 16:37 | XMS_ITS | Encounter Summary ---
Author Organization [facility] Address [address] [place] [address] Care Team Providers Care Computer Aided Design Designer Name Role Phone Jarrett uHff MD Unavailable [phone] Wesley [place] MD Primary Care Provider [phone] Jassi Oseguera Unavailable Encounter Details Date Type Department Care Team (Late st Contact Info) Description 03/02/2023 Scanned Document [facility] Neurology [address] [place] [address] Jarrett Huff MD [address] [place] [address] [address] [place] [phone] Social History Tobacco Use Types Packs/Day Years [...] 11:20 AM EDT Office Visit [facility] Neurology [place] [address] [address] Jose Angel Bishop APRN 280 [facility] 102 [place] [address] documented as of this encounter Visit Diagnoses Not on filedocumented in this encounter Care Teams Computer Aided Design Designer Relationship Specialty Start Date End Date Wesley [place] MD [address] [place] [address] 101 [place] [address] PCP - General Internal Medicine 07/23/21 Jarrett Huff MD [address] [address] Physician Neurology 02/26/20 Jassi Oseguera [address] [place] [address] # [address] [place] [address] Physician Pulmonary Medicine 09/27/22 Pricilla Hester MD Psychiatrist 05/11/20 DO KIMBERLY Rooney: [facility] [place] Consulting Provider Allergy 10/12/21 documented as of this encounter
--- OUTSIDE RECORDS SUMMARY | 2024-12-31 16:37 | XMS_ITS | Encounter Summary ---
Author Organization [facility] Address 100 [place] [address] Care Team Providers Care Statistical Typist Name Role Phone Nathanael Alfredo MD Primary Care Provider + [phone] Jarrett Huff MD Unavailable [phone] Tash Enrique Unavailable + [phone] Angelito Ruelas MD Unavailable + [phone] Wesley [place] MD Primary Care Provider [phone] Jassi Oseguera Unavailable Encounter Details Date Type Department Care Team (Late st Contact Info) Description 06/25/2021 Scanned Document [facility] Neurology [address] [address] Jarrett Huff MD [address] [place] [address] [address] [place], [place] [phone] Social History Tobacco Use Types Packs/Day Years [...] Description 01/23/2025 11:20 AM EDT Office Visit [facility] Neurology [place] [address] [address] Jose Angel Bishop, FEDE [address] [address] documented as of this encounter Visit Diagnoses Not on filedocumented in this encounter Care Teams Statistical Typist Relationship Specialty Start Date End Date Nathanael Alfredo MD 131 [place] [address] PCP - General Internal Medicine 03/06/19 07/22/21 Wesley [place] MD [address] [place] [address] PCP - General Internal Medicine 07/23/21 Jarrett Huff MD [address] [address] Physician Neurology 02/26/20 Tash Enrique PA [address] [address] Consulting Provider Neurology 02/26/20 10/11/21 Angelito Ruelas MD [address] [place] [address] [phone] Consulting Provider Pulmonary Medicine 02/05/21 Jassi Oseguera [address] [place] [address] # [address] [place] [address] Physician Pulmonary Medicine 09/27/22 Pricilla Hester MD Psychiatrist 05/11/20 DO KIMBERLY Rooney: [facility] [place] Consulting Provider Allergy 10/12/21 documented as of this encounter
--- OUTSIDE RECORDS SUMMARY | 2024-12-31 16:37 | XMS_ITS | Encounter Summary ---
Author Organization [facility] Address [address] [place] [address] Care Team Providers Care Retail Event Assistant Name Role Phone Jarrett Huff MD Unavailable [phone] Tash Enrique Unavailable [phone] Angelito Ruelas MD Unavailable + [phone] Wesley Grover MD Primary Care Provider [phone] Jassi Oseguera Unavailable Encounter Details Date Type Department Care Team (Late st Contact Info) Description 09/23/2021 Scanned Document [facility] Neurology [address] [address] Jarrett Huff MD 35 [facility] [address] [place] [address] Social History Tobacco Use Types [...] Description 01/23/2025 11:20 AM EDT Office Visit [facility] Neurology [place] 280 [facility] 102 [place] [address] Jose Angel Bishop, FEDE 280 [facility] 102 [place] [address] documented as of this encounter Visit Diagnoses Not on filedocumented in this encounter Care Teams Retail Event Assistant Relationship Specialty Start Date End Date Wesley Grover MD [address] [place] [address] 101 [place] [address] PCP - General Internal Medicine 07/23/21 Jarrett Huff MD [address] [address] Physician Neurology 02/26/20 Tash Enrique PA 69 [facility] 300 [place] [address] Consulting Provider Neurology 02/26/20 10/11/21 Angelito Ruelas MD [address] [place] [address] Consulting Provider Pulmonary Medicine 02/05/21 Jassi Oseguera [address] [place] [address] [id number] [place] [address] Physician Pulmonary Medicine 09/27/22 Pricilla Hester MD Psychiatrist 05/11/20 DO KIMBERLY Rooney: [facility] Consulting Provider Allergy 10/12/21 documented as of this encounter
--- OUTSIDE RECORDS SUMMARY | 2024-12-31 16:37 | XMS_ITS | Encounter Summary ---
Author Organization [facility] Address [address] [place] [address] Care Team Providers Care Hydro Plant Site Manager Name Role Phone Jarrett Huff MD Unavailable [phone] Wesley Grover MD Primary Care Provider [phone] Jassi Oseguera Unavailable Encounter Details Date Type Department Care Team (Late st Contact Info) Description 10/28/2022 Scanned Document [facility] Neurology [address] [address] Jarrett Huff MD [address] [place] [address] [address] [place] [address] Social History Tobacco Use Types Packs/Day Years [...] [facility] Neurology [place] [address] [address] Jose Angel Bishop APRN 280 [facility] 102 [place] [address] documented as of this encounter Visit Diagnoses Not on filedocumented in this encounter Care Teams Hydro Plant Site Manager Relationship Specialty Start Date End Date Wesley Grover MD [address] [place] [address] 101 [place] [address] PCP - General Internal Medicine 07/23/21 Jarrett Huff MD [address] [address] Physician Neurology 02/26/20 Jassi Oseguera [address] [place] [address] [id number] [place] [address] Physician Pulmonary Medicine 09/27/22 Pricilla Hester MD Psychiatrist 05/11/20 DO KIMBERLY Rooney: [facility] Consulting Provider Allergy 10/12/21 documented as of this encounter
--- OUTSIDE RECORDS SUMMARY | 2024-12-31 16:37 | XMS_ITS | Encounter Summary ---
Author Organization [facility] Address 100 [place] [address] Care Team Providers Care Rehabilitation Engineer Name Role Phone Nathanael Alfredo MD Primary Care Provider + [phone] Jarrett Huff MD Unavailable [phone] Tash Enrique Unavailable + [phone] Angelito Ruelas MD Unavailable + [phone] Wesley Grover MD Primary Care Provider [phone] Jassi Oseguera Unavailable Encounter Details Date Type Department Care Team (Late st Contact Info) Description 08/05/2020 Scanned Document [facility] Neurology [address] [address] Jarrett Huff MD [address] [place] [address] [address] [place], [place] [address] Social History Tobacco Use Types Packs/Day Years [...] [facility] Neurology [place] [address] [address] Jose Angel Bishop, FEDE [address] [address] documented as of this encounter Visit Diagnoses Not on filedocumented in this encounter Care Teams Rehabilitation Engineer Relationship Specialty Start Date End Date Nathanael Alfredo MD 131 [place] [address] PCP - General Internal Medicine 03/06/19 07/22/21 Wesley Grover MD [address] [place] [address] PCP - General Internal Medicine 07/23/21 Jarrett Huff MD [address] [address] Physician Neurology 02/26/20 Tash Enrique PA [address] [phone] Consulting Provider Neurology 02/26/20 10/11/21 Angelito Ruelas MD [address] [place] [id number] Consulting Provider Pulmonary Medicine 02/05/21 Jassi Oseguera [address] [place] [address] [id number] [place] [address] Physician Pulmonary Medicine 09/27/22 Pricilla Hester MD Psychiatrist 05/11/20 DO KIMBERLY Rooney: [facility] Consulting Provider Allergy 10/12/21 documented as of this encounter
--- OUTSIDE RECORDS SUMMARY | 2024-12-31 16:37 | XMS_ITS | Encounter Summary ---
Author Organization [facility] Address [address] [place] [address] Care Team Providers Care Hog Scalder Name Role Phone Nathanael Alfredo MD Primary Care Provider + [phone] Jarrett Huff MD Unavailable [phone] Tash Enrique Unavailable + [phone] Angelito Ruelas MD Unavailable + [phone] Wesley Grover MD Primary Care Provider [phone] Jassi Oseguera Unavailable Encounter Details Date Type Department Care Team (Late st Contact Info) Description 03/01/2021 Scanned Document [facility] Neurology [address] [address] Jarrett Huff MD [address] [place] [address] [address] [place], [place] [id number] Social History Tobacco Use Types Packs/Day Years [...] [facility] Neurology [place] [address] [address] Jose Angel Bishop, FISH BAIT PROCESSING SUPERVISOR [address] [address] documented as of this encounter Visit Diagnoses Not on filedocumented in this encounter Care Teams Hog Scalder Relationship Specialty Start Date End Date Nathanael Alfredo MD 131 [place] [address] PCP - General Internal Medicine 03/06/19 07/22/21 Wesley Grover MD [address] [place] [address] PCP - General Internal Medicine 07/23/21 Jarrett Huff MD [address] [place] [address] Physician Neurology 02/26/20 Tash Enrique PA [address] [address] Consulting Provider Neurology 02/26/20 10/11/21 Angelito Ruelas MD [address] [place] [id number] Consulting Provider Pulmonary Medicine 02/05/21 Jassi Oseguera [address] [facility] [id number] [place] [address] Physician Pulmonary Medicine 09/27/22 Pricilla Hester MD Psychiatrist 05/11/20 DO KIMBERLY Rooney: [facility] Consulting Provider Allergy 10/12/21 documented as of this encounter
--- OUTSIDE RECORDS SUMMARY | 2024-12-31 16:37 | XMS_ITS | Encounter Summary ---
Author Organization [facility] Address 100 [place] [address] Care Team Providers Care Ruffling Machine Operator Name Role Phone Jarrett Huff MD Unavailable Angelito Ruelas MD Unavailable [phone] Wesley Grover MD Primary Care Provider [phone] Jassi Oseguera Unavailable Encounter Details Date Type Department Care Team (Late st Contact Info) Description 01/04/[address] [facility] Neurology [address] [place] [address] Jarrett Huff MD 35 [facility] [address] [place] [address] Social History Tobacco Use Types Packs/Day Years [...] have Coronavirus / COVID-19? No / Unsure 01/04/2022 4:29 PM EST documented as of this encounter Plan of Treatment Upcoming Encounters Date Type Department Care Team ([facility] st Contact Info) Description 01/23/2025 11:20 AM EDT Office Visit [facility] Neurology [place] [address] [address] Jose Angel Bishop, SENIOR CLINICAL RESEARCH SCIENTIST 280 [facility] 102 [place] [address] documented as of this encounter Visit Diagnoses Not on filedocumented in this encounter Care Teams Ruffling Machine Operator Relationship Specialty Start Date End Date Wesley Grover MD [address] [place] [address] PCP - General Internal Medicine 07/23/21 Jarrett Huff MD [address] [place] [address] Physician Neurology 02/26/20 Angelito Ruelas MD [address] [place] [address] Consulting Provider Pulmonary Medicine 02/05/21 Jassi Oseguera [address] [place] [address] [id number] [place] [address] Physician Pulmonary Medicine 09/27/22 Pricilla Hester MD Psychiatrist 05/11/20 DO KIMBERLY Rooney: [facility] Consulting Provider Allergy 10/12/21 documented as of this encounter
--- OUTSIDE RECORDS SUMMARY | 2024-12-31 16:37 | XMS_ITS | Encounter Summary ---
Author Organization [facility] Address 100 [place] [address] Care Team Providers Care Drill Press Operator For Metal Name Role Phone Jarrett Huff MD Unavailable Angelito Ruelas MD Unavailable [phone] Wesley Grover MD Primary Care Provider [phone] Jassi Oseguera Unavailable Encounter Details Date Type Department Care Team (Late st Contact Info) Description 07/22/[address] [facility] Neurology [address] [place] [address] Jarrett Huff MD 35 [facility] [address] [place] [address] Social History Tobacco Use Types Packs/Day Years [...] 11:20 AM EDT Office Visit [facility] Neurology [place] [address] [address] Jose Angel Bishop, RESEARCH ASSISTANT PROFESSOR 280 [facility] 102 [place] [address] documented as of this encounter Visit Diagnoses Not on filedocumented in this encounter Care Teams Drill Press Operator For Metal Relationship Specialty Start Date End Date Wesley Grover MD [address] [place] [address] PCP - General Internal Medicine 07/23/21 Jarrett Huff MD [address] [address] Physician Neurology 02/26/20 Angelito Ruelas MD [address] [place] [address] Consulting Provider Pulmonary Medicine 02/05/21 Jassi Oseguera [address] [place] [address] [address] [place] [address] Physician Pulmonary Medicine 09/27/22 Pricilla Hester MD Psychiatrist 05/11/20 DO KIMBERLY Rooney: [facility] [place] Consulting Provider Allergy 10/12/21 documented as of this encounter
--- OUTSIDE RECORDS SUMMARY | 2024-12-31 16:37 | XMS_ITS | Encounter Summary ---
Author Organization [facility] Address 100 [place] [address] Care Team Providers Care Hospice Nurse Practitioner Name Role Phone Nathanael Alfredo MD Primary Care Provider + [phone] Jarrett Huff MD Unavailable [phone] Tash Enrique Unavailable + [phone] Angelito Ruelas MD Unavailable + [phone] Wesley Grover MD Primary Care Provider [phone] Jassi Oseguera Unavailable Encounter Details Date Type Department Care Team (Late st Contact Info) Description 01/26/2021 Scanned Document [facility] Neurology [address] [address] Jarrett Huff MD [address] [place] [address] [address] [place], [place] [id number] Social History Tobacco Use Types Packs/Day Years [...] Description 01/23/2025 11:20 AM EDT Office Visit [facility] Neurology [place] [address] [address] Jose Angel Bishop, FEDE [address] [address] documented as of this encounter Visit Diagnoses Not on filedocumented in this encounter Care Teams Hospice Nurse Practitioner Relationship Specialty Start Date End Date Nathanael Alfredo MD 131 [place] [address] PCP - General Internal Medicine 03/06/19 07/22/21 Wesley Grover MD [address] [place] [address] PCP - General Internal Medicine 07/23/21 Jarrett Huff MD [address] [address] Physician Neurology 02/26/20 Tash Enrique PA [address] [address] Consulting Provider Neurology 02/26/20 10/11/21 Angelito Ruelas MD [address] [place] [address] Consulting Provider Pulmonary Medicine 02/05/21 Jassi Oseguera [address] [place] [address] [id number] [place] [address] Physician Pulmonary Medicine 09/27/22 Pricilla Hester MD Psychiatrist 05/11/20 DO KIMBERLY Rooney: [facility] Consulting Provider Allergy 10/12/21 documented as of this encounter
--- OUTSIDE RECORDS SUMMARY | 2024-12-31 16:37 | XMS_ITS | Encounter Summary ---
Author Organization [facility] Address [address] [place] [address] Care Team Providers Care Print Shop Chief Clerk Name Role Phone Jarrett Huff MD Unavailable [phone] Angelito Ruelas MD Unavailable [phone] Wesley Grover MD Primary Care Provider Jassi Oseguera Unavailable Encounter Details Date Type Department Care Team (Late Contact Info) Description 12/09/2021 Scanned Document [facility] Neurology [address] [place] [address] Jarrett Huff MD 35 [facility] [address] [place] [address] Social History Tobacco Use Types Packs/Day Years [...] [facility] Neurology [place] [address] [phone] Jose Angel Bishop APRN 280 [facility] 102 [place] [address] documented as of this encounter Visit Diagnoses Not on filedocumented in this encounter Care Teams Print Shop Chief Clerk Relationship Specialty Start Date End Date Reilly, Wesley Clemens MD [address] [place] [address] 101 [place] [address] PCP - General Internal Medicine 07/23/21 Jarrett Huff MD [address] [address] Physician Neurology 02/26/20 Angelito Ruelas MD [address] [place] [address] Consulting Provider Pulmonary Medicine 02/05/21 Jassi Oseguera [address] [place] [address] [id number] [place] [address] Physician Pulmonary Medicine 09/27/22 Pricilla Hester MD Psychiatrist 05/11/20 DO KIMBERLY Rooney: [facility] Consulting Provider Allergy 10/12/21 documented as of this encounter
--- OUTSIDE RECORDS SUMMARY | 2024-12-31 16:37 | XMS_ITS | Data Portability ---
Author Organization [place] [facility] Address [address] [place] [address] Care Team Providers Care Physiatrist Name Role Phone RJ FRANCISCO Primary Care Provider [phone] DANIEL GARCIA OTHER [phone] JENNIFER NAILS OTHER LILA ARMANDO OTHER Assessment Encounter Date Assessment Date Assessment LastModified by Organization Details LastModified Time 08/27/2018 08/27/2018 Overview/Histor y: 33 y/o female, known to but new to this provider. Pt reports h/o blood and protein in her urine and diagnosed with nutcracker syndrome. Pt states has dysuria, which is new, so she called . Denies fever, chills, or vomiting. Pt notes has a lot of medical diagnoses and is normally nauseated, so nothing new. Denies flank pain at this time. 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 Exam: Pt with no tachycardia, NAD despite chronic medical conditions. Lungs CTA bilaterally, breathing unlabored. HR regular, no tachycardia. Abd soft, bowel sounds present x4, no TTP. Slight CVA tenderness on the left. Ddx considered includes but not limited to pyelonephritis, acute abdomen/pelvic organ pathology, irritant cystitis, fungal infection of perineum, urinary retention, constipation Work up/Results: Pt given Azo tab on scene for dysuria. Urine dipstick positive for blood, ketones, protein, and leukocytes, neg nitrates. Will send for culture at this time. Plan/Discussion : Pt notes going out of town on to [place]. I have prescribed Keflex to fill now at the pharmacy and once we call with the culture results, will let her know to start the abx if indicated. Pyridium prescription also prescribed to start now. Drink plenty of fluids, rest and monitor for worsening symptoms. Time On Scene with Patient: 00:21:48 Not available 08/27/2018 17:03:18 11/25/2018 11/25/2018 Overview/Histor y: 33 y/o female new to me. C/O congestion, fever, sore throat for 1 week. States that she is now blowing out and coughing up green/yellow/br own mucous. Report h/o sinus infections and this is how she is feeling currently. Low grade fever yesterday, unsure today. Afebrile now, VSS. Multiple medical diagnoses chart needs to be merged Exam: 33 y/o in no acute distress, non toxic appearance. Skin pink, warm and dry. TM's intact with + light reflexes bilaterally. canals clear. Nares pink and moist without discharge. + maxillary sinus pain bilaterally. Posterior pharynx clear. RRR without murmur, rub, gallop. BBS clear throughout without wheeze, rhonchi, rales. DDx considered, but not limited to: common cold, flu like illness Work up/Results: History and physical exam consistent with Sinus infection. Plan/Discussion : Homecare, red flags/er, f/u discussed. All questions answered and patient verbalized understanding. Copy of note will be sent to her PCP I. 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 She complains of right 5th digit redness and swelling that is spreading and describes it as hot and itchy for the last 2 weeks. She denies going to a salon for manicure and states she does her own nails. Redness initially appeared around the nail bed. She denies any pain or limited ROM. Denies any physical trauma, cuts, or animal bite. Denies any exudate. She is applying Neosporin to site with no change. Exam: Patient alert and oriented. Pleasant and in euthymic mood. VS stable. HEENT: Normocephalic, atraumatic, EOMI Resp: BLCTA Cardiac: RRR,S1, S2 no murmurs, no gallops Extremity: Right 5th digit edema and erythema surrounding nail bed extending to DIP. Tender with palpation, warm to touch. No exudate noted. DDx considered, but not limited to: Atopic dermatitis, chancre, warts, cyst Plan/Discussion : Doxy prescribed for infection. Patient is to follow up with PCP or seek emergenc care with worsening of symptoms. Patient verbalized understanding. Time On Scene with Patient: 01:05:51 [email or web address] Not available 01/21/2022 14:00:46 08/20/2022 08/20/2022 Overview/Histor y:37 yo female who is established with and is new to this provider with hx of vtach, kidney disease, POTS, stiff person syndrome, and several other autoimmune and neuro disorders being seen for cough, congestion, sore throat, fatigue, and not feeling well for the past 1.5 weeks Exam: NAD, pleasant and interactive, ambulating without difficulty, TMs pearly grayn, oropharynx is without erythema or exudate, no cervical lymphadenopathy , RRR, lungs CTA bilaterally Vital Signs:VSS DDx considered, but not limited to:bronchitis, pneumonia, URI, COVID, reactive airway, PE, CHF Work up/Results:exam Plan/Discussion :Suspect bronchitis at time of visit. No fever, abnormal lung sounds or hypoxemia to suggest pneumonia although pt does have risk factors. COVID tests have been neg at home. No chest pain, hypoexmia, hx to suggest PE, PERC0. Steroid burst has helped pt in the past. Will try this with continued supportive care. Advised follow up in 2-3 days if not improving and sooner if worse In order to obtain further information and compare any laboratory results/values, I have accessed old patient records. This information was pertinent in my medical decision making today. Time On Scene with Patient: 00:21:57 [email or web address] Not available 08/20/2022 13:09:52 Plan of Treatment Reminders Order Date Submit Date Provider Last Modified By Organization Details Last Modified Time Details Appointments None recorded. Lab urinalysis , dipstick [address] [facility], [address], [place], [address], 8 16:40:45 culture, urine 2017 018 [place] [facility], [address] [facility], [place] [address], [place], [address], 8 09:21:16 Referral None recorded. Procedures None recorded. Surgeries None recorded. Imaging None recorded. Medication Orders prednisone 20 mg tablet 2021 022 [email or web address] [id number], [address] [place], [address], 2 16:50:44 doxycyclin e hyclate 100 mg tablet 2021 022 STEFANY [id number], [address] [place], [address], 13:44:38 hydrocorti sone 2.5 % topical cream 2020 021 ATHENAFAX [id number], [address] [place], [address], 1 17:07:11 doxycyclin e hyclate 100 mg capsule [address] [facility] [id number], [address], [place], [place], [id number], 2 12:41:55 doxycyclin e hyclate 100 mg capsule [address] [facility] [address] [facility] [id number], [address], [place], [place], [id number], 2 12:41:55 Pyridium 100 mg tablet 2017 018 [facility] [id number], [address], [place], [place], [id number], 8 16:41:00 Keflex 500 mg capsule [id number], [address], [place], [place], [id number], 12:41:43 Patient TargetsNo targets recorded. Patient Instructions Encounter Date Encounter Id Patient Instructions Last Modified By Organization Details Last Modified Time 08/27/2018 [id number] 1. You were seen for dysuria today and given Azo tab on scene to help with the burning sensation. 2. We will send your urine for culture and let you know to start the antibiotics if positive. 3. Drink plenty of fluids and monitor for worsening symptoms to include flank pain, fever, chills, nausea and vomiting. You were diagnosed with a urinary tract infection today. Please take all antibiotics for the entire duration of the prescription. Most urinary tract infections can be treated successfully with the initial antibiotic choice. Occasionally, the bacteria in the urine is resistant to the first antibiotic. In those cases, you will require a different antibiotic. If you do not feel like you are improving or you develop fever, back pain or vomiting, please contact your physician immediately. Please note urine culture specimens can take up to four days for processing. If we receive results sooner, we will call you. If you develop any new or worsening symptoms and need after hours care, please go to nearest ER and/or call 911. If you have additional concerns or develop a change in your condition between 8am-10pm, please call [facility] at [phone] to help navigate your care. Not available 08/27/2018 16:42:41 11/25/2018 [id number] you were seen to day due to sinus pain,pressure, congestion, sore throat,fever. Diagnosed with a sinus infection. Prescription for Doxycycline sent to pharmacy. First dose given in home at 1810. Take medication twice a day x 10 days with food. May try Pseudoephedrine for congestion, steamy showers and cool mist humidifier might be helpful. Saline nasal rinses. Tylenol/motrin as needed. We will send a copy of note to PCP Sinusitis Instructions Basic Information Sinusitis is an inflammation of the lining of the sinuses. Sinuses are lined with mucous membranes and are filled with air. When sinuses become blocked, fluid can back up within sinuses and this creates a condition where the sinuses become swollen and can cause pain and other symptoms. Sometimes, this will allow germs such as viruses, bacteria and mold to grow and cause infection. Sinuses can become blocked due to the common cold, environmental allergies, deformities such as nose injuries or deviated septum, or growths such as polyps. Symptoms include facial pain and pressure, nasal discharge, ear pressure, having to clear the throat often, dental pain and diminished sense of smell and taste. At times fever and bad breath occur. Most cases of sinusitis (90-98 %) are viral. True bacterial sinusitis is actually quite rare. A popular belief is that is your nasal discharge is green, then it is bacterial and you need an antibiotic. Antibiotics are usually not indicated unless the following is present: symptoms last for 10 days of more and are not improving fever of at least 102 degrees facial pain that is constant for 3-4 days in a row a typical cold resolves after one week and then sudden return of symptoms with increased nasal discharge, headache and sinus pressure Instructions Medications: Decongestants: Ycft-nda-ntsvdtn decongestants such as sudafed are helpful. You should not use these for prolonged periods of time and they may not be contraindicated due to drug interactions with your regular medications or if you have medical problems such as high blood pressure. Ask your STAFF SUBMARINE WARFARE OFFICER. decongestant sprays such as Afrin and Niraj-synephrine may also help your symptoms. However, if theses are used for over 3 days in a row, the congestion can actually get worse when you stop using them. So, use sparingly. If you have high blood pressure, your STAFF SUBMARINE WARFARE OFFICER may not recommend use. nasal steroid drops/spray These MAY help decrease the inflammation in the mucous membrane lining of the sinuses (there is no strong evidence to support this claim). They work best with regular use while you have your symptoms. They also work best if used a few minutes after sinus irrigation treatment (see below) Pain relief: Ibuprofen and Tylenol may be used for comfort. The maximum dose of Tylenol for adults is 4000 mg/day (or 2 extra strength tablets 4 times per day) and the recommended dose of Ibuprofen for adults 400 mg every 6 hours. Both of these medicines work best if you take them regularly for 3 days. Please follow the recommended dosage instructions on the bottle. Antibiotics: If your provider prescribed these for you, be sure that you complete the whole course. Self Care: Sinus irrigations: Obtain an ear bulb syringe from the pharmacy (a typical nose syringe, used often for infants, is too small). Cut the tip of the syringe so that it can fit snuggly in your nostril. Mix a cup of warm water with a teaspoon of non-iodized table salt and generous pinch of baking soda. Draw up some of the solution into the syringe. Plug one side of your nose while you insert the bulb syringe into the other side. Squeeze the syringe firmly but gently while you ? b reathe in? the solution through your nose. Alternate both sides until you complete the cup of solution. Do this 2-4 times per day. After each irrigation, be sure to clean the bulb syringe in a dilute bleach solution and rinse well. Local heat: Moisten a washcloth and place this over your sinuses (cheeks and around the eyes). Over the washcloth, place a heating pad set on low. Do this for 20 minutes 4-6 times per day Hydration: drink eight, 8 oz. glasses of clear liquid per day Follow up: See your regular MD or Ear Nose and Throat doctor (if recommended by your provider) within 10 days for follow up. Seek Care Immediately if you: -develop a rash -notice significant redness or swelling around your eye -have fever that does not respond to tylenol/ibuprofen or remains >101.4 (adults) > 100.4 (children) for greater than 3 days -have a stiff neck or severe headache If you develop any new or worsening symptoms and need after hours care, please go to nearest ER and/or call 911. If you have additional concerns or develop a change in your condition between 8am-10pm, please call [facility] at [phone] to help navigate your care. [email or web address] Not available 11/25/2018 20:17:52 06/22/2021 [id number] rash: care instructions Not available 06/22/2021 17:05:45 YOU WERE SEEN TO DAY FOR A PRURITIC (ITCHY) RASH TO YOUR LOWER ABDOMEN. YOUR RASH LOOKS WELL CONTAINED. 1. KEEP CLEANING WITH TEPID WATER, PAT DRY. 2. KEEP APPLYING HYDROCORTISONE 2-3 TIMES A DAY FOR ITCHING 3. BENADRYL PER BOX INSTRUCTIONS IF SYMPTOMS WORSEN Thank you for your visit with [facility] today. We cannot always find the exact cause of your symptoms during your initial visit. Please follow up with your primary care provider or specialist as needed to be rechecked or seek medical attention if your symptoms do not go away or get worse. If you develop any new or worsening symptoms and need after hours care, please go to nearest ER and/or call 911. If you have additional concerns or develop a change in your condition between 8am-10pm, please call [facility] at [phone] to help navigate your care. Not available 06/22/2021 17:05:35 01/21/2022 [id number] Thank you for yo ur visit with [facility] today. We cannot always find the exact cause of your symptoms during your initial visit. Please follow up with your primary care provider or specialist within 12-24 hours within 24-48 hours within 2-3 days to be rechecked or seek medical attention if your symptoms do not go away or get worse. If you develop any new or worsening symptoms and need after hours care, please go to nearest ER and/or call 911. If you have additional concerns or develop a change in your condition between 8am-10pm, please call [facility] at [phone] to help navigate your care. Please seek care or call your primary provider if the rash: 1. Worsens 2. Lasts longer than one week 3. Shows signs of local infection (redness, oozing, or swelling) 4. Occurs together with fever, chills, swollen glands, or other symptoms of infection 5. Looks dark purple or spotted 6. Occurs together with symptoms that suggest autoimmune disorder (recurring fever, malaise, fatigue, unexplained weight loss, or joint swelling) If you have additional concerns or develop a change in your condition between 8am-10pm, please call [facility] at [phone] to help navigate your care. [email or web address] Not available 01/21/2022 13:12:04 08/20/2022 [id number] Acute Bronchitis Instructions BASIC INFORMATION Acute bronchitis is swelling and irritation in the air passages of your lungs. This irritation may cause you to cough or have other breathing problems. Acute bronchitis often starts because of another viral illness, such as a cold or the flu. The illness spreads from your nose and throat to your windpipe and airways. Bronchitis is often called a chest cold. Acute bronchitis lasts about 2 weeks and is usually not a serious illness. Most cases of bronchitis DO NOT require antibiotics. INSTRUCTIONS Medicines: Ibuprofen or acetaminophen: These medicines help lower a fever and treat aches. Refer to the bottles for proper dosing based on age and weight. Use as needed. Do not take either of these medicines for more than 3 days in a row. Prolonged use of Ibuprofen can hurt your kidney and stomach. Prolonged use of Tylenol can injure your liver. Cough medicine: Ajbt-hwj-xuslgxc (OTC) medicine helps loosen mucus in your lungs and make it easier to cough up. OTC cough medicine should NOT be used in children under age 3. Inhalers: You may need an inhaler to help you breathe easier and cough less. Inhalers help to relax the airways An inhaler gives medicine in a mist form so that you can breathe it into your lungs. If you were given an inhaler, take 2 puffs, four times per day for 2 days. After that, just use as needed for increased coughing, wheezing or tightness in chest. Steroid medicine: You may have been given prednisone or another steroid medication which helps open your air passages so you can breathe easier. Antibiotics: In most cases, antibiotics are not necessary for bronchitis. However, if your provider did prescribe these for you, please complete the entire course. You should also ask your pharmacist for a good fiqw-enb-hthgpfu probiotic to take while you are on the antibiotic to help prevent antibiotic induced diarrhea. A good probiotic should have two species of live, active cultures. How to use an inhaler: 1) Shake the inhaler well to make sure you get the correct amount of medicine per puff. Remove the cover from your inhaler's mouthpiece. 2) Exhale as much air from your lungs as you can. Put the mouthpiece in your mouth, past your front teeth and rest it on the top of your tongue. Do not block the mouthpiece opening with your tongue. 3) Breathe in through your mouth at a slow and steady rate. As you do this, press the inhaler to release the puff of medicine. When your lungs are full, hold your breath for 10 seconds. Then breathe out slowly through puckered lips or through your nose. 4) If you need to take more puffs, wait at least 1 minute between each puff. 5) Using a spacer / air chamber ensures that you get the maximum amount of medicine from the inhaler. 6) Rinse your mouth with water after you use the inhaler. This may keep you from getting a mouth infection or irritation. 7) Follow the instructions that come with your inhaler to clean it. Self Care: 1) Do not smoke or allow others to smoke around you. Please call the [place] Quit Line at to help in smoking cessation. Avoid chemicals, fumes, and dust. 2) Stay well hydrated 3) Seek care immediately if you: - develop a fever - develop a rash - become increasingly short of breath or you do not begin to improve 3-5 days (it may take 10 days for complete improvement) - cough up blood - have chest pain unrelated to coughing 4) Make appointment to follow up with you doctor within one week or sooner if directed by your [facility] provider. If you develop any new or worsening symptoms and need after hours care, please go to nearest ER and/or call 911. If you have additional concerns or develop a change in your condition between 8am-10pm, please call [facility] at [phone] to help navigate your care. [email or web address] Not available 08/20/2022 12:52:10 Reason for Referral None Reported. Results Created Date Observation Date Name Description Value Unit Range Abnormal Flag Note LastModifiedBy Organization Detail LastModifiedTime 08/27/20 18 08/27/2018 urina lysis , dipst ick Appearance dark Not Available [facility] - [place] [id number], [place], [address], 08/27/2018 16:36:02 08/27/20 18 08/27/2018 urina lysis , dipst ick Color yellow Not Available [facility] - Home [address], [place], [address], 08/27/2018 16:36:02 08/27/20 18 08/27/2018 urina lysis , dipst ick Glucose negati ve Not Available [facility] - Home [address], [place], [address], 08/27/2018 16:36:02 08/27/20 18 08/27/2018 urina lysis , dipst ick Bilirubin negati ve Not Available [facility] - Home [address], [place], [address], 08/27/2018 16:36:02 08/27/20 18 08/27/2018 urina lysis , dipst ick Ketones ++ Not Available [facility] - Home [address], [place], [address], 08/27/2018 16:36:02 08/27/20 18 08/27/2018 urina lysis , dipst ick Sp. [place] 1.030 Not Available Cos - Home [address], [place], [address], 08/27/2018 16:36:02 08/27/20 18 08/27/2018 urina lysis , dipst ick Blood +++ Not Available Cos - Home [address], [place], [address], 08/27/2018 16:36:02 08/27/20 18 08/27/2018 urina lysis , dipst ick pH 5.0 Not Available [facility] - Home [address], [place], [address], 08/27/2018 16:36:02 08/27/20 18 08/27/2018 urina lysis , dipst ick Protein positi ve Not Available Cos - Home [address], [place], [address], 08/27/2018 16:36:02 08/27/20 18 08/27/2018 urina lysis , dipst ick Urobilirubin negati ve Not Available Cos - Home [address], [place], [address], 08/27/2018 16:36:02 08/27/20 18 08/27/2018 urina lysis , dipst ick Nitrites NEG Not Available [facility] - [address], [place], [address], 08/27/2018 16:36:02 08/27/20 18 08/27/2018 urina lysis , dipst ick Leukocytes ++ Not Available [facility] - [address], [place], [address], 08/27/2018 16:36:02 08/27/20 18 08/30/2018 cultu re, urine urine culture, routine Final report abnormal Not Available [facility] ([facility]) [address], [place], [address], 08/30/2018 09:21:15 08/27/20 18 08/30/2018 cultu re, urine result 1 Escher ichia coli abnormal 50,00 0-100 ,000 colon y formi ng units per mL Cefaz new <=4 ug/mL Cefaz new with an TARIK <=16 predi cts susce ptibi lity to the oral agent s cefac leroy, cefdi virgen, cefpo doxim e, cefpr ozil, cefur oxime , cepha lexin , and lorac arbef when used for thera py of uncom plica leanne urina ry tract infec tions due to E. coli, Klebs iella pneum oniae , and Prote us mirab ilis. Not Available [facility] ([facility]) [address] [facility] [address], [place], [address], 08/30/2018 09:21:15 08/27/20 18 08/30/2018 cultu re, urine antimicrobia l susceptibili ty Commen t S = Susce ptibl e; I = Inter media te; R = Resis tant P = Posit jennifer; N = Negat jennifer MICS are expre ssed in micro grams per mL Antib iotic RSLT# 1 RSLT# 2 RSLT# 3 RSLT# 4 Amoxi cilli n/Cla vulan ic Acid S Ampic illin S Cefep dylon S Ceftr iaxon e S Cefur oxime S Cipro floxa david S Ertap enem S Genta micin S Imipe nem S Levof loxac in S Merop enem S Nitro furan toin S Piper acill in/Ta zobac sequeira S Tetra cycli ne S Tobra mycin S Trime thopr im/Quintanilla lfa S Not Available [facility] ([facility]) [address] [facility], [place], [address], 08/30/2018 09:21:15 03/22/20 23 03/22/2023 BMP + IONIZ ED CALCI UM, SERUM OR PLASM A glu 36 mg/dL 70-105 low Not Available [facility] [address] [place], [address], 08/01/2023 19:50:39 03/22/20 23 03/22/2023 BMP + IONIZ ED CALCI UM, SERUM OR PLASM A Na 159 mmol/ L 138-14 6 high Not Available [address], [address], 08/01/2023 19:50:39 03/22/20 23 03/22/2023 BMP + IONIZ ED CALCI UM, SERUM OR PLASM A K 6.3 mmol/ L 3.5-4. 9 high Not Available [address], [address], 08/01/2023 19:50:39 03/22/20 23 03/22/2023 BMP + IONIZ ED CALCI UM, SERUM OR PLASM A BUN 7 mg/dL 8-26 Not Available [address], [address], 08/01/2023 19:50:39 03/22/20 23 03/22/2023 BMP + IONIZ ED CALCI UM, SERUM OR PLASM A crea 0.4 mg/dL 0.6-1. 3 Not Available [address], [address], 08/01/2023 19:50:39 03/22/20 23 03/22/2023 BMP + IONIZ ED CALCI UM, SERUM OR PLASM A cL 113 mmol/ L 98-109 Not Available [address], [address], 08/01/2023 19:50:39 03/22/20 23 03/22/2023 BMP + IONIZ ED CALCI UM, SERUM OR PLASM A TCO2 25 mmol/ L 24-29 Not Available [address], [address], 08/01/2023 19:50:39 03/22/20 23 03/22/2023 BMP + IONIZ ED CALCI UM, SERUM OR PLASM A angap 28 mmol/ L 10-20 Not Available [address] [place], [address], 08/01/2023 19:50:39 03/22/20 23 03/22/2023 BMP + IONIZ ED CALCI UM, SERUM OR PLASM A ica 1.53 mmol/ L 1.12-1 .32 Not Available [address], [address], 08/01/2023 19:50:39 03/22/20 23 03/22/2023 BMP + IONIZ ED CALCI UM, SERUM OR PLASM A HCT 53 %pcv 38-51 Not Available [address], [address], 08/01/2023 19:50:39 03/22/20 23 03/22/2023 BMP + IONIZ ED CALCI UM, SERUM OR PLASM A Hb 18.0 g/dL 12-17 Not Available [address], [address], 08/01/2023 19:50:39 03/23/20 23 03/23/2023 BMP + IONIZ ED CALCI UM, SERUM OR PLASM A glu 36 mg/dL 70-105 low Not Available [address], [address], 08/03/2023 00:24:20 03/23/20 23 03/23/2023 BMP + IONIZ ED CALCI UM, SERUM OR PLASM A Na 159 mmol/ L 138-14 6 high Not Available [address], [address], 08/03/2023 00:24:20 03/23/20 23 03/23/2023 BMP + IONIZ ED CALCI UM, SERUM OR PLASM A K 6.1 mmol/ L 3.5-4. 9 high Not Available [address], [address], 08/03/2023 00:24:20 03/23/20 23 03/23/2023 BMP + IONIZ ED CALCI UM, SERUM OR PLASM A BUN 7 mg/dL 8-26 Not Available [address], [address], 08/03/2023 00:24:20 03/23/20 23 03/23/2023 BMP + IONIZ ED CALCI UM, SERUM OR PLASM A crea 0.4 mg/dL 0.6-1. 3 Not Available [address], [address], 08/03/2023 00:24:20 03/23/20 23 03/23/2023 BMP + IONIZ ED CALCI UM, SERUM OR PLASM A cL 113 mmol/ L 98-109 Not Available [address], [address], 08/03/2023 00:24:20 03/23/20 23 03/23/2023 BMP + IONIZ ED CALCI UM, SERUM OR PLASM A TCO2 27 mmol/ L 24-29 Not Available [address], [address], 08/03/2023 00:24:20 03/23/20 23 03/23/2023 BMP + IONIZ ED CALCI UM, SERUM OR PLASM A angap 26 mmol/ L 10-20 Not Available [address], [address], 08/03/2023 00:24:20 03/23/20 23 03/23/2023 BMP + IONIZ ED CALCI UM, SERUM OR PLASM A ica 1.55 mmol/ L 1.12-1 .32 Not Available [address], [address], 08/03/2023 00:24:20 03/23/2003/23/2023 BMP + IONIZ ED CALCI UM, SERUM OR PLASM A HCT 54 %pcv 38-51 Not Available [address], [address], 08/03/2023 00:24:20 03/23/20 23 03/23/2023 BMP + IONIZ ED CALCI UM, SERUM OR PLASM A Hb 18.4 g/dL 12-17 Not Available [address], [address], 08/03/2023 00:24:20 03/23/2003/23/2023 BMP + IONIZ ED CALCI UM, SERUM OR PLASM A glu 37 mg/dL 70-105 low Not Available [address], [address], 08/03/2023 00:23:50 03/23/20 23 03/23/2023 BMP + IONIZ ED CALCI UM, SERUM OR PLASM A Na 159 mmol/ L 138-14 6 high Not Available [address], [address], 08/03/2023 00:23:50 03/23/20 23 03/23/2023 BMP + IONIZ ED CALCI UM, SERUM OR PLASM A K 6.1 mmol/ L 3.5-4. 9 high Not Available [address], [address], 08/03/2023 00:23:50 03/23/20 23 03/23/2023 BMP + IONIZ ED CALCI UM, SERUM OR PLASM A BUN 7 mg/dL 8-26 Not Available [address], [address], 08/03/2023 00:23:50 03/23/20 23 03/23/2023 BMP + IONIZ ED CALCI UM, SERUM OR PLASM A crea 0.4 mg/dL 0.6-1. 3 Not Available [address], [address], 08/03/2023 00:23:50 03/23/20 23 03/23/2023 BMP + IONIZ ED CALCI UM, SERUM OR PLASM A cL 114 mmol/ L 98-109 Not Available [address], [address], 08/03/2023 00:23:50 03/23/20 23 03/23/2023 BMP + IONIZ ED CALCI UM, SERUM OR PLASM A TCO2 27 mmol/ L 24-29 Not Available [address], [address], 08/03/2023 00:23:50 03/23/20 23 03/23/2023 BMP + IONIZ ED CALCI UM, SERUM OR PLASM A angap 25 mmol/ L 10-20 Not Available [address], [address], 08/03/2023 00:23:50 03/23/20 23 03/23/2023 BMP + IONIZ ED CALCI UM, SERUM OR PLASM A ica 1.54 mmol/ L 1.12-1 .32 Not Available [address], [address], 08/03/2023 00:23:50 03/23/2003/23/2023 BMP + IONIZ ED CALCI UM, SERUM OR PLASM A HCT 54 %pcv 38-51 Not Available [address], [address], 08/03/2023 00:23:50 03/23/20 23 03/23/2023 BMP + IONIZ ED CALCI UM, SERUM OR PLASM A Hb 18.4 g/dL 12-17 Not Available [address], [place], [address], 08/03/2023 00:23:50 Result Notes None recorded. Medical Equipment None Reported. Allergies Allergen ID Allergen Name Allergen Category Reaction Reaction Severity Criticality Documentation Date Start Date Code Code System Note Provider Name and Address Organization Details Recorded Time [id number] adhesive tape environme nt,medica tion Not available Not available Not available 06/22/2021 [id number] MACIEJ Singh NP [address], [facility] [place], [address], [place] [facility] 1 16:44:19 [id number] tetanus and diphtheri a toxoids Not available Not available Not available Not available 06/22/2021 87358 MACIEJ Singh, ASAEL [address], [facility] [place], [address], [place] [facility] 1 16:44:42 20517 epinephri ne medicatio n Not available Not available Not available 11/25/2018 3992 RxNorm Blanche Wheat null, [place] [facility] 9 21:37:23 [address]98[address] Iodinated contrast media (substanc e) medicatio n Not available Not available Not available 11/25/2018 82051 2004 SNOMED Blanche Jarret null[place] [facility] 9 21:37:23 [id number] avocado allergeni c extract food Not available Not available Not available 08/20/2022 54870 2 RxNorm RONNELL KELLOGG [address], [facility] [place], [address], [place] [facility] 2 12:41:01 7480 epinephri ne medicatio n Not available Not available Not available 08/06/2017 3992 RxNorm RONNELL CAMPO [address] [place], [address], [place] [facility] 7 10:49:09 7481 Iodinated contrast media (substanc e) medicatio n Not available Not available Not available 08/06/2017 24205 2004 SNOMED RONNELL CAMPO [address] [place], [address], [place] [facility] 7 10:47:36 7482 egg extract food,medi cation Not available Not available Not available 08/06/2017 03472 15 RxNorm RONNELL CAMPO [address] [place], [address], [place] [facility] 7 10:48:42 7483 orange food,medi cation Not available Not available Not available 08/06/2017 23610 UNK RONNELL CAMPO [address] [place], [address], [place] [facility] 7 10:50:16 7484 pear preparati on food Not available Not available Not available 08/06/2017 50019 25 RxNorm RONNELL CAMPO [address] [place], [address], [place] [facility] 7 10:50:28 Medications Name Sig Start Date Stop Date Status Note LastModified by Organization Details LastModified Time cyclobenzap rine 10 mg tablet active Not Available Not Available Not Available cromolyn 100 mg/5 mL oral concentrate TAKE 10 ML BY MOUTH 4 TIMES A DAY (TITRATE UP SLOWLY DIRECTED) active Not Available Not Available No t Available doxycycline hyclate 100 mg capsule TAKE 1 CAPSULE BY MOUTH EVERY 12 HOURS WITH MEALS FOR 7 DAYS 08/20 completed Not Available Not Available Not Available clindamycin HCl 300 mg capsule Take 1 capsule every 6 hours by oral route for 10 days. 05/29 completed Not Available Not Available Not Available triamcinolo ne acetonide 0.5 % topical cream APPLY A THIN LAYER TO THE AFFECTED AREA(S) BY TOPICAL ROUTE 2 TIMES PER DAY to rash 2016 active Not Available Not Available Not Avai lable epinephrine (Jr) 0.15 mg/0.3 mL injection,a uto-injecto r 05/29 completed Not Available Not Available Not Available ondansetron HCl 4 mg tablet active Not Available Not Available Not Available prednisone 20 mg tablet TAKE 2 TABLETS DAILY FOR 2 DAYS, THEN TAKE 1 TABLET DAILY FOR 3 DAYS active Not Available Not Available No t Available dextroamphe tamine-amph etamine 10 mg tablet 1 TAB(S) ORAL AT 1-2 PM active Not Available Not Available No t Available Pyridium 100 mg tablet Take 1 tablet 3 times a day by oral route for 10 days. 2017 active Not Available Not Available Not Avai lable pentoxifyll ine ER 400 mg tablet,exte nded release TAKE 1 TABLET BY MOUTH 3 TIMES A DAY. MUST TAKE WITH FOOD/MEAL active Not Available Not Available No t Available famotidine 20 mg tablet TAKE 1 TABLET BY MOUTH TWICE A DAY active Not Available Not Available No t Available baclofen 10 mg tablet TAKE 1 TABLET BY MOUTH THREE TIMES A DAY NEEDED FOR MUSCLE SPASM active Not Available Not Available No t Available cephalexin 500 mg capsule TAKE 1 CAPSULE BY MOUTH EVERY 12 HOURS FOR 7 DAYS 08/20 completed Not Available Not Available Not Available prednisone 50 mg tablet TAKE 1 TABLET BY MOUTH AT 13 HOURS, 7 HOURS, AND 1 HOUR BEFORE CONTRAST MEDIA INJECTION FOR CAT SCAN 08/20 completed Not Available Not Available Not Available promethazin e 25 mg tablet active Not Available Not Available Not Available Qvar 40 mcg/actuati on Metered Aerosol oral inhaler Inhale 2 puffs every 4-6 hours by inhalatio n route. active Not Available Not Available No t Available gabapentin 300 mg capsule TAKE 1 CAPSULE BY MOUTH THREE TIMES A DAY active Not Available Not Available No t Available Banophen 25 mg capsule TAKE 2 CAPSULES BY MOUTH ONCE FOR SLEEP 1 HOUR BEFORE MR ENTEROGRA M active Not Available Not Available No t Available hydrocortis one 2.5 % topical cream APPLY A THIN LAYER TO THE AFFECTED AREA(S) BY TOPICAL ROUTE 2 TIMES PER DAY active Not Available Not Available No t Available montelukast 10 mg tablet TAKE 1 TABLET BY MOUTH EVERY DAY AT BEDTIME active Not Available Not Available No t Available metoprolol succinate ER 25 mg tablet,exte nded release 24 hr TAKE 2 TABLETS BY MOUTH EVERY DAY IN THE MORNING AND 1 TABLET EVERY EVENING active Not Available Not Available No t Available azelastine 137 mcg (0.1 %) nasal spray USE 2 SPRAYS IN EACH NOSTRIL TWICE A DAY active Not Available Not Available No t Available epinephrine 0.3 mg/0.3 mL injection, auto-inject or INJECT THE CONTENTS OF 1 PEN INTRAMUSC ULARLY NEEDED FOR SEVERE ALLERGIC REACTION active Not Available Not Available No t Available albuterol sulfate HFA 90 mcg/actuati on aerosol inhaler INHALE 2 PUFFS BY MOUTH EVERY 4 TO 6 HOURS NEEDED FOR BRONCHOSP ASMS. active Not Available Not Available No t Available ondansetron 4 mg disintegrat ing tablet DISSOLVE 1 TABLET BY MOUTH EVERY 8 HOURS FOR 90 DAYS. active Not Available Not Available No t Available fludrocorti sone 0.1 mg tablet TAKE 1 TABLET BY MOUTH EVERY DAY active Not Available Not Available No t Available doxycycline hyclate 100 mg tablet Take 1 tablet twice a day by oral route after meals for 7 days. 2021 active Not Available Not Available Not Avai lable amoxicillin 875 mg-potassiu m clavulanate 125 mg tablet active Not Available Not Available Not Available dextroamphe tamine-amph etamine ER 25 mg 24hr capsule,ext end release TAKE 1 CAPSULE BY MOUTH EVERY DAY IN THE MORNING active Not Available Not Available No t Available Denta 5000 Plus 1.1 % cream active Not Available Not Available Not Available artificial tears (dextran 40/hypromel lose) eye drops active Not Available Not Available Not Available metoprolol tartrate 25 mg tablet TAKE 2 TABLETS BY MOUTH EVERY MORNING AND TAKE 1 TABLET EVERY EVENING 08/20 completed Not Available Not Available Not Available Octagam 5 % intravenous solution Inject by intraveno us route. 05/29 completed Not Available Not Available Not Available acetaminoph en active Not Available Not Available Not Available Zantac active Not Available Not Availa ble Not Available ibuprofen active Not Available Not Katie ilable Not Available cyclobenzap rine 05/29 completed Not Available Not Available Not Available Toprol XL 05/29 completed Not Available Not Available Not Available Botox active Not Available Not Availa ble Not Available fexofenadin e active Not Available Not Available Not Available Nasalcrom active Not Available Not Katie ilable Not Available gabapentin 05/29 completed Not Available Not Available Not Available Fioricet active Not Available Not Avai lable Not Available ondansetron 05/29 completed Not Available Not Available Not Available Diphenhydra mine active Not Available Not Available Not Available Adderall active Not Available Not Avai lable Not Available Saline Nasal active Not Available Not Available Not Available Xifaxan 550 mg tablet Take 1 tablet twice a day by oral route. active Not Available Not Available No t Available Gamunex-C 20 gram/200 mL (10 %) injection solution active Not Available Not Available Not Available Vitamin D3 50 mcg (2,000 unit) capsule Take by oral route. active Not Available Not Available No t Available azelastine 137 mcg-flutica sone 50 mcg/spray nasal spray SPRAY 1 SPRAY INTO EACH NOSTRIL TWICE A DAY active Not Available Not Available No t Available Breo Ellipta 100 mcg-25 mcg/dose powder for inhalation INHALE 1 PUFF BY MOUTH EVERY DAY active Not Available Not Available No t Available Breo Ellipta 200 mcg-25 mcg/dose powder for inhalation INHALE 1 PUFF BY MOUTH EVERY DAY active Not Available Not Available No t Available oxygen at HS active Not Available Not Availa ble Not Available Qvar RediHaler 40 mcg/actuati on HFA breath activated aerosol active Not Available Not Available Not Available Vitals Date Recorded Heart rate Provider Name an d Address Organization Details Last Updated DateTime 08/27/2018 90 /min RONNELL OGDEN [address] [place], [address], [place] [facility] 08/27/2018 16:57:43 Date Recorded Heart rate Oxygen saturation Oxygen saturation in Arterial blood by Pulse oximetry Body temperature Respiratory rate Systolic blood pressure Diastolic blood pressure Provider Name and Address Organization Details Last Updated DateTime 1 85 /min 98 % 98 % 97.5 [degF] 18 /min 122 mm[Hg] 76 mm[Hg] Not Available [facility] 1 16:42:52 Date Recorded Heart rate Oxygen saturation Oxygen saturation in Arterial blood by Pulse oximetry Respiratory rate Body temperature Systolic blood pressure Diastolic blood pressure Provider Name and Address Organization Details Last Updated DateTime 9 87 /min 95 % 95 % 18 /min 98.1 [degF] 110 mm[Hg] 70 mm[Hg] Blanche Wheat [place] [facility] 9 21:37:23 Date Recorded Oxygen saturation Oxygen saturation in Arterial blood by Pulse oximetry Respiratory rate Body temperature Heart rate Systolic blood pressure Diastolic blood pressure Provider Name and Address Organization Details Last Updated DateTime 2 99 % 99 % 18 /min 97.5 [degF] 87 /min 100 mm[Hg] 70 mm[Hg] Not Available [facility] 2 13:00:16 Date Recorded Oxygen saturation Oxygen saturation in Arterial blood by Pulse oximetry Heart rate Respiratory rate Body temperature Systolic blood pressure Diastolic blood pressure Provider Name and Address Organization Details Last Updated DateTime 2 100 % 100 % 95 /min 20 /min 98 [degF] 112 mm[Hg] 68 mm[Hg] Not Available [facility] 2 12:43:07 Social History Question Answer Notes LastModified by Organizat ion Details LastModified Time Tobacco Smoking Status Current Every Day Smoker Roseline Singh, ASAEL [address] [facility], [place], [address], [place] [facility] 06/22/2021 16:46:34 Do You Have An Advance Directive? No Information not available 08/06/2017 What Is Your Level Of Alcohol Consumption? None Information not available 06/22/2021 What Is Your Code Status? Full Code Information not available 06/22/2021 Drugs Abused None Information not available 08/06/2017 Within The Past 12 Months, Has It Happened That The Food You Bought Just Didn't Last And You Didn't Have Money To Get More. No Information not available 06/22/2021 Within The Past 12 Months, Have You Worried That Your Food Would Run Out Before You Got Money To Buy More. No Information not available 06/22/2021 Fall Risk: Do You Feel Unsteady When Standing Or Walking? No Information not available 06/22/2021 We Know That How And When People Interact With Friends And Family Can Be Very Different From Person To Person. How Often Do You Have The Opportunity To See Or Talk To People That You Care About And Feel Close To? (Ex: Talking To Friends On The Phone Or Visiting Friends Or Family Or Going To [employer] Or Club Meetings) 1 Or 2 Times Per Week Information not available 06/22/2021 Excessive Alcohol Or Drug Use No Information not available 06/22/2021 Does This Patient Have A PCP? Yes Information not available 06/22/2021 Has The Patient Seen Their PCP In The Past 6 Months? Yes [id number] Information not available 08/20/2022 We Know From Many Of Our Patients That Covering All Of Their Costs Can Be Difficult At Times. This Can Cause Stress And Impact Health. In The Past Year, Have You Been Unable To Get Any Of The Following When It Was Really Needed? No Information not available 06/22/2021 What Is Your Housing Situation Today? I Have Housing Information not available 06/22/2021 Would You Like Help Connecting To Resources? None Information not available 06/22/2021 Marital Status Informati on not available 08/06/2017 What Was The Date Of Your Most Recent Tobacco Screening? 11/25/2018 Information not available 05/30/2019 How Much Tobacco Do You Smoke? 0.5 PPD Information not available 06/22/2021 Do You Use Any Illicit Or Recreational Drugs? No Information not available 06/22/2021 How Many Years Have You Smoked Tobacco? 16 Information not available 06/22/2021 Do You Or Have You Ever Used Any Other Forms Of Tobacco Or Nicotine? No Information not available 06/22/2021 Sex: Unknown Functional Status None recorded. Mental Status None recorded. Family History Relationship Description Onset Age of this Age Resolved Age Notes LastModified by Organization Details LastModified Time Mother Heart disease Not available 11/2016 10:29:56 Brother Atrial fibrillation Not available 1 10:30:06 Medical History Condition Response Diabetes N Coronary Artery Disease Y High Cholesterol N Cancer N Pulmonary Embolism N Stroke N Hypertension N Asthma N COPD N Depression N Kidney Disease Y Gynecological HistoryNo gynecological history recorded. Obstetrics History GPAL:G 0 P 0 0 0 0 Past Encounters Encounter ID Performer Location Encounter Start Date Encounter Closed Date Diagnosis/Indication Diagnosis SNOMED-CT Code Diagnosis ICD10 Code Diagnosis Note [id number] RONNELL CAMPO [facility] [address] [place] [address] 08/06/2017 10:12:37 08/06/2017 17:40:11 Acute dermatitis 39696726 L30.9 Autoimmune disease 84875 009 M35.9 [id number] RONNELL AUSTIN [facility] [address] [place] [address] 08/20/2017 19:06:23 08/21/2017 09:30:19 Keratoconjunctivitis sicca 920537288 M35.01 [id number] Tavo Dsouza [facility] [address] [place] [address] 12/14/2017 11:14:44 12/15/2017 13:17:25 Acute sinusitis 11627813 J01.90 Cellulitis 245534388 L03 .90 [id number] RONNELL CAMPO [facility] [address] [place] [address] 12/27/2017 21:06:51 12/30/2017 00:10:49 Cellulitis 752677017 L03.90 Autoimmune disease 63514 009 M35.9 [id number] Tavo Dsouza [facility] [address] [place] [address] 01/10/2018 12:27:21 01/10/2018 15:57:23 Pityriasis rosea [id number] L42 [id number] Sonia Juan A [facility] [address] [place] [address] 05/29/2018 17:44:03 05/29/2018 20:24:19 Proteinuria 09931934 R80.9 chronic intermitte nt proteinuri a. Trace protein on dipstick today. 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 57613669 N94.89 Mast cell disorder 74574 7003 D47.09 Flank pain 762442417 R10 .9 Nausea 326333654 R11.0 chronic nausea [id number] RONNELL GUTIERREZ [facility] [address] [place] [address] 08/27/2018 16:26:36 08/28/2018 11:12:42 Dysuria 39483632 R30.0 Blood in urine 56910168 R31.9 [id number] Judith Careny NP [facility] [address] [place] [address] 11/25/2018 19:44:44 11/27/2018 18:48:12 Acute sinusitis 16253176 J01.90 [id number] Roseline Singh NP [facility] [address] [facility] [place] [address] 06/22/2021 16:38:41 06/23/2021 16:12:41 Pruritic rash 78551751 L28.2 Overview/H istory: Patient is a 36 year old alert female who presents to isolated pruritic rash to lower abdominal area noted after a visit to the beach; she did void in a wooded area that day. The rash was initially pruritic. Patient self-medic ated with a dose of Benadryl, washed well with soap and water and has been regularly applying Hydrocorti sone with good results. 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 Exam: Afebrile 97.5. HRR 85, S1, S2. LSCTA bilaterall y, no work of breathing. Abdomen SNT, + BS x 4 quadrants. No CVA tenderness . Normal MS exam. [place], flat, dry rash lower abdominal area 3x5 cm area. No raised area, no blistering , non tender to touch. Pruritic. No streaking, no drainage. The pubic hair is trimmed close to the skin and the rash is easily visualized . DDx considered , but not limited to:Poison Jazmine/[place] considered likely given pruritis and exposure to wooded areaAtopic dermatitis considered , however no new detergent, soap, perfume, lotionFoll iculitis considered , however, flat rashRazor burn considered , patient shaves bikini area Work up/Results :Exam Plan/Discu ssion:1. Benadryl per box instructio ns if rash should worsen. Hydrocorti sone 2.5% RX for pruritis.2 . No shaving bikini area for now. Always use clean razor3. Avoid new creams, lotions, perfurmes4 . Discussed acute s/s to report to ER. Patient able to reiterate all discussed. No questions at this time. Proper Personal Protective Equipment (PPE), including {{gloves, eye protection , masks, and gowns, shoe covers rosa ves, eye protection and masks* rosa ves, eye protection gloves, eye protection , N95 mask, gown, and shoe covers allie gical mask with face-shiel d, gloves, gown and shoe covers allie gical mask with face-shiel d, gloves}} were donned and doffed approprrico rajan and all equipment cleaned using approved technique with germicidal disposable wipes prior to and after care of this patient according to [facility]'s infection prevention protocols. In order to obtain further informatio n and compare any laboratory results/va lues, I have accessed {{old patient records* p atient records on the [employer] [facility] [employer] r eviewed records with the PCP}}. This informatio n was pertinent in my medical decision making today. [id number] May ASAEL Rubi [facility] [address] [facility] [address] 01/21/2022 12:58:05 01/24/2022 10:33:08 Paronychia of finger [id number] L03.019 [id number] RONNELL KELLOGG [facility] [address] 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 Roshni Lorenzo [id number] Roshni Hope Bj 11/25/2018 1 MEDICARE B-[place]: [employer] 10[employer] Nasra Lorenzo [id number] Roshni Lorenzo 11/25/2018 2 MEDICAID-[place]: [facility] Roshni Mohrett [id number] Roshni Mohrett 06/22/2021 2 [place] Roshni Mohrett [id number] Roshni Mohrett 06/22/2021 1 MEDICARE B-CO: [employer] Roshni Mohrett [id number] Roshni Hope Bj 01/21/2022 1 [place]: [facility] Roshni M Bj [id number] Roshni Hope Bj 01/21/2022 2 [place] [facility] Roshni Hope Bj [id number] Roshni M Bj 08/20/2022 2 [place] [facility] oRshni Mohrett [id number] Roshni Mohrett 08/20/2022 1 [place]: [facility] [employer] Roshni M Bj [id number] Roshni M Bj Notes Date Note Type Note Provider Name and Address Organization Details Recorded Time 08/27/2018 text/html 33 y/o female, known to but new to this provider. Pt reports h/o blood and protein in her urine and diagnosed with nutcracker syndrome. Pt states has dysuria, which is new, so she called . Denies fever, chills, or vomiting. Pt notes has a lot of medical diagnoses and is normally nauseated, so that's not something new. Denies flank pain at this time. RONNELL GUTIERREZ [address] [facility], [place], [address], [place] [facility] 08/27/2018 17:03:33 11/25/2018 text/html 33 y/o female ne w to me. C/O congestion, fever, sore throat for 1 week. States that she is now blowing out and coughing up green/yellow/brow n mucous. Report h/o sinus infections and this is how she is feeling currently. Low grade fever yesterday, unsure today. Afebrile now, VSS. Multiple medical diagnoses chart needs to be merged Judith Carney NP [address] [place], [address], [place] [facility] 12/05/2018 16:31:00 06/22/2021 text/html Patient is a 36 year old alert female who is known to and new to this provider. Patient chief complaint is rash that she noted this past Monday after going to the beach. It's raised, itchy, red, it's on my left groin; bikini area, I thought it was a bug bite or poison Jazmine, I used a trail to go to the bathroom. 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 She complains of right 5th digit redness and swelling that is spreading and describes it as hot and itchy for the last 2 weeks. She denies going to a salon for manicure and states she does her own nails. Redness initially appeared around the nail bed. She denies any pain or limited ROM. Denies any physical trauma, cuts, or animal bite. Denies any exudate. She is applying Neosporin to site with no change. Rozina Rubi NP [address], [place], [address], [place] [facility] 01/21/2022 14:01:18 08/20/2022 text/html 37 yo female wit h cough congestion, sore throat, fatigue, and not feeling well for the past 1.5 weeks. Has been feeling worse for the past 2-3 days. Cough has been productive, bright yellow sputum. No known fever, but has had sweats and chills. Pt has tried OTC cough syrup, nebulizer, nasal sprays. Shortness of breath/wheezing off and on.Has taken several home COVID tests that have been negative RONNELL KELLOGG [address], [place], [address], [place] [facility] 08/20/2022 13:10:03 OBGyn Episode No OBEpisode recorded.
--- OUTSIDE RECORDS SUMMARY | 2024-12-31 16:37 | XMS_ITS | Encounter Summary ---
Author Organization [facility] Address [address] [place] [address] Care Team Providers Care Senior Client Advisor Name Role Phone Jarrett Huff MD Unavailable Angelito Ruelas MD Unavailable [phone] Wesley Grover MD Primary Care Provider [phone] Jassi Oseguera Unavailable Encounter Details Date Type Department Care Team (Late Contact Info) Description 11/18/2021 Scanned Document [facility] Neurology [address] [place] [address] Jarrett Huff MD [address] [facility] [address] [place] [address] Social History Tobacco Use Types Packs/Day Years [...] Description 01/23/2025 11:20 AM EDT Office Visit [facility] Neurology [place] [address] [phone] Jose Angel Bishop APRN [address] [facility] [address] [place] [address] documented as of this encounter Visit Diagnoses Not on filedocumented in this encounter Care Teams Senior Client Advisor Relationship Specialty Start Date End Date Reilly, Wesley Clemens MD [address] [place] [address] [address] [place] [address] PCP - General Internal Medicine 07/23/21 Jarrett Huff MD [address] [address] Physician Neurology 02/26/20 Angelito Ruelas MD [address] [place] [address] Consulting Provider Pulmonary Medicine 02/05/21 Jassi Oseguera [address] [place] [address] [id number] [place] [address] Physician Pulmonary Medicine 09/27/22 Pricilla Hester MD Psychiatrist 05/11/20 DO KIMBERLY Rooney: [facility] Consulting Provider Allergy 10/12/21 documented as of this encounter
--- OUTSIDE RECORDS SUMMARY | 2024-12-31 16:37 | XMS_ITS | Encounter Summary ---
Author Organization [facility] Address [address] [place] [address] Care Team Providers Care Account Developer Name Role Phone Jarrett Huff MD Unavailable Angelito Ruelas MD Unavailable [phone] Wesley Grover MD Primary Care Provider Jassi Oseguera Unavailable Encounter Details Date Type Department Care Team (Late Contact Info) Description 11/19/2021 Scanned Document [facility] Neurology [address] [place] [address] Jarrett Huff MD [address] [facility] [address] [place] [address] Social History Tobacco Use Types Packs/Day Years [...] 01/23/2025 11:20 AM EDT Office Visit [facility] Neurology [place] [address] [phone] Jose Angel Bishop APRN [address] [facility] [address] [place] [address] documented as of this encounter Visit Diagnoses Not on filedocumented in this encounter Care Teams Account Developer Relationship Specialty Start Date End Date Reilly, Wesley Clemens MD [address] [place] [address] [address] [place] [address] PCP - General Internal Medicine 07/23/21 Jarrett Huff MD [address] [address] Physician Neurology 02/26/20 Angelito Ruelas MD [address] [place] [address] Consulting Provider Pulmonary Medicine 02/05/21 Jassi Oseguera [address] [place] [address] [id number] [place] [address] Physician Pulmonary Medicine 09/27/22 Pricilla Hester MD Psychiatrist 05/11/20 DO KIMBERLY Rooney: [facility] Consulting Provider Allergy 10/12/21 documented as of this encounter
== END 2024-12-31 13:58 | disposition home or self-care (01) ==
PROVIDERS: PCP Internal Medicine; Visit Provider Internal Medicine
DX: Z72.0 Tobacco use (principal); J45.909 Unspecified asthma, uncomplicated; G25.82 Stiff-man syndrome; R76.0 Raised antibody titer; F41.1 Generalized anxiety disorder

== ENCOUNTER → 2024-12-31 13:29 | Outpatient (BNVA) | payer OTHER, SELFPAY | PROVIDERS: PCP Internal Medicine; Visit Provider Internal Medicine | DX: J45.909 Unspecified asthma, uncomplicated (principal); G25.82 Stiff-man syndrome; R76.0 Raised antibody titer; F41.1 Generalized anxiety disorder; Z72.0 Tobacco use | CPT/HCPCS: 99212 ==